=== PATIENT | female | born 1980 | race Caucasian/White ===

== ENCOUNTER 2018-07-26 21:10 | Outpatient (REF) | payer MEDICAID, SELFPAY ==
[2018-07-26 22:13] LABS: ALT 33 U/L (12-78); AST 19 U/L (15-37); Albumin 3.5 g/dL (3.4-5.0); Alkaline Phosphatase 94 U/L (46-116); Anion Gap 10.7 mmol/L (3-11); BUN 8 mg/dL (7-18); Bilirubin, Total 0.6 mg/dL (0.2-1.0); CO2 26.3 mmol/L (21.0-32.0); CREATININE 0.74 mg/dL (0.55-1.02); Calcium 8.4 mg/dL (8.5-10.1); Chloride 103 mmol/L (98-107); Cholesterol 165 mg/dL (50-200); Glucose 96 mg/dL (70-100); HDL Cholesterol 33 mg/dL (40-60); LDL CHOLESTEROL 111 mg/dL (<100); Potassium 4.1 mmol/L (3.5-5.1); Sodium 140 mmol/L (136-145); Total Protein 6.9 g/dL (6.4-8.2); Triglyceride 161 mg/dL (30-150)
[2018-07-29 12:13] LABS: Codeine Negative ng/mL (Cutoff: 25); Dihydrocodeine 465 ng/mL (Cutoff: 25); Hydrocodone 1886 ng/mL (Cutoff: 25); Hydromorphone 1117 ng/mL (Cutoff: 25); Morphine Negative ng/mL (Cutoff: 25); Naloxone Negative ng/mL (Cutoff: 25); Norhydrocodone 1927 ng/mL (Cutoff: 25); Noroxycodone Negative ng/mL (Cutoff: 25); Noroxymorphone Negative ng/mL (Cutoff: 25); Opiates Interpretation Positive.
== END 2018-07-26 21:30 ==
LOC: NCHCN 21:10
PROVIDERS: PCP Physician Assistant Medical; Visit Provider Physician Assistant Medical
DX: E78.5 Hyperlipidemia, unspecified (principal); M54.5 Low back pain
CPT/HCPCS: 80053; 80061; 80361; 83721

== ENCOUNTER 2018-10-26 14:21 | Outpatient (REF) | payer MEDICAID, SELFPAY ==
[2018-10-29 04:20] LABS: Codeine Negative ng/mL (Cutoff: 25); Dihydrocodeine 584 ng/mL (Cutoff: 25); Hydrocodone 2055 ng/mL (Cutoff: 25); Hydromorphone 2048 ng/mL (Cutoff: 25); Morphine Negative ng/mL (Cutoff: 25); Naloxone Negative ng/mL (Cutoff: 25); Norhydrocodone 4303 ng/mL (Cutoff: 25); Noroxycodone Negative ng/mL (Cutoff: 25); Noroxymorphone Negative ng/mL (Cutoff: 25); Opiates Interpretation Positive.
== END 2018-10-26 14:41 ==
LOC: NCHCN 14:21
PROVIDERS: PCP Physician Assistant Medical; Visit Provider Physician Assistant Medical
DX: F11.20 Opioid dependence, uncomplicated (principal); Z51.81 Encounter for therapeutic drug level monitoring
CPT/HCPCS: 80361

== ENCOUNTER 2019-06-10 13:08 | Emergency (ER) | payer OTHER, MEDICAID, SELFPAY ==
[2019-06-10 13:17] VITALS: BP 148/91; PULSE 81; RESP 16; TEMP 36.7; O2SAT 94
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
[2019-06-10] MEDS: Ketorolac 30 MG/ML VIAL IM (13:40)
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
--- NOTE | 2019-06-10 14:47 | DI.VRAD_ITS ---
Addendum created by Bro Martins MD on 06/10/2019 3:20:[address] of the C-spine shows mild left neural foraminal narrowing at C5-C6 and moderate left neural foraminal narrowing at C6-C7 caused by uncovertebral osteophytes. This is somewhat poorly evaluated on CT; if clinically indicated MRI may further evaluate. Initial report created on 06/10/2019 2:47:16 PM EDT EXAM: CT Thoracic Spine Without Contrast EXAM DATE/TIME: 06/10/2019 1:31 PM CLINICAL HISTORY: 39 years old, female; Other: Tingling in 1-2 digits, midline pain; Pain in thoracic spine TECHNIQUE: Imaging protocol: Computed tomography images of the thoracic spine without contrast. Coronal and sagittal reformatted images were created and reviewed. COMPARISON: No relevant prior studies available. FINDINGS: Vertebrae: No acute fracture. Normal alignment. Discs/Spinal canal/Neural foramina: No spinal stenosis. Soft tissues: Unremarkable. IMPRESSION: No acute finding EXAM: CT Lumbar Spine Without Contrast EXAM DATE/TIME: 06/10/2019 1:31 PM CLINICAL HISTORY: 39 years old, female; Other: Tingling in 1-2 digits, midline pain; Pain in thoracic spine TECHNIQUE: Imaging protocol: Computed tomography images of the lumbar spine without contrast. Coronal and sagittal reformatted images were created and reviewed. COMPARISON: No relevant prior studies available. FINDINGS: Vertebrae: No acute fracture. Normal alignment. Discs/Spinal canal/Neural foramina: No spinal stenosis. No neural foraminal narrowing. Soft tissues: Unremarkable. IMPRESSION: No acute findings. Dictated and Authenticated by: Bro Martins MD. Ordering:BETO Ribeiro MD
[2019-06-10] MEDS: Lidocaine 5% Patch 1 PATCH TP (15:13)
[2019-06-10] MEDS: Dexamethasone 4 MG TAB 12 MG PO (15:13)
[2019-06-10 15:26] VITALS: BP 148/91; PULSE 81; RESP 16; TEMP 36.7; O2SAT 94
--- NOTE | 2019-06-11 05:51 | NUR.NOTE ---
Referral faxed to [facility], Bere Reynolds, craig F/U 06/12 with phone call to office to make sure fax was received.lNursing Note:
--- NOTE | 2019-06-12 09:05 | NUR.NOTE ---
Spoke with Teresa at [facility] to be sure f/u referral was received. Refaxed referral as requested.Nursing Note:
== END 2019-06-10 15:26 | disposition home or self-care (01) ==
PROVIDERS: Emergency Provider Student in an Organized Health Care Education/Training Program; PCP Physician Assistant Medical
DX: R20.2 Paresthesia of skin (principal); S13.4XXA Sprain of ligaments of cervical spine, initial encounter; V43.51XA Car driver injured in collision with sport utility vehicle in traffic accident, initial encounter
CPT/HCPCS: 71250; 96372; 99284; L0172; 70450; 72125; 72128; 72131; J1885; J8540

== ENCOUNTER 2019-08-26 09:20 | Outpatient (CLI) | payer MEDICAID, SELFPAY ==
[2019-08-26 11:44] LABS: ALT 50 U/L (14-59); AST 20 U/L (15-37); Albumin 3.7 g/dL (3.4-5.0); Alkaline Phosphatase 88 U/L (46-116); Anion Gap 8.2 mmol/L (3-11); BUN 8 mg/dL (7-18); Bilirubin, Total 0.5 mg/dL (0.2-1.0); CO2 26.8 mmol/L (21.0-32.0); CREATININE 0.81 mg/dL (0.55-1.02); Calcium 8.8 mg/dL (8.5-10.1); Calculated LDL 93 mg/dL; Chloride 104 mmol/L (98-107); Cholesterol 151 mg/dL (50-200); Glucose 99 mg/dL (70-100); HDL Cholesterol 35 mg/dL (40-60); Potassium 4.3 mmol/L (3.5-5.1); Sodium 139 mmol/L (136-145); Triglyceride 119 mg/dL (30-150)
[2019-08-28 10:36] LABS: HIV-1/2 Ag & Ab Screen Negative (NEGAT)
[2019-08-28 10:37] LABS: Hepatitis C Ab w Rflx HCV PCR Negative (NEGAT)
[2019-08-28 13:57] LABS: Syphilis Total Ab w/Reflex Nonreactive (Nonreactive)
== END 2019-08-26 09:40 ==
PROVIDERS: PCP Physician Assistant Medical; Visit Provider Physician Assistant Medical
DX: Z00.00 Encounter for general adult medical examination without abnormal findings (principal); E78.5 Hyperlipidemia, unspecified; Z11.3 Encounter for screening for infections with a predominantly sexual mode of transmission; Z11.4 Encounter for screening for human immunodeficiency virus [HIV]; Z11.59 Encounter for screening for other viral diseases
CPT/HCPCS: 36415; 80053; 80061; 86803; 87389; 86780

== ENCOUNTER 2020-09-13 01:12 | Outpatient (CLI) | payer OTHER, SELFPAY ==
[2020-09-13 08:23] LABS: Abs Immature Grans 0.07 10^3/uL (0.0-0.06); Absolute Basophil Count 0.06 10^3/uL (0.0-0.2); Absolute Eosinophil Count 0.45 10^3/uL (0.0-0.7); Absolute Lymphocyte Count 3.88 10^3/uL (1.2-3.4); Absolute Monocyte Count 1.17 10^3/uL (0.1-0.8); Basophils % 0.4; Eosinophils % 3.2; HCT 43.7 % (36.0-46.0); HGB 14.6 g/dL (11.2-15.7); Immature Grans % 0.5; Lymphocytes % 27.9; MCHC 33.4 % (32.0-36.0); MCV 89.9 fL (80-95); MPV 8.6 fL (8.0-11.0); Monocytes % 8.4; Neutrophils % 59.6; Nucleated RBC 0 %; Platelet Count 434 10^3/uL (130-400); RBC 4.86 10^6/uL (3.93-5.22); RDW 14.1 % (11.7-14.6); RDW-SD 46.6 fL; WBC 13.91 10^3/uL (4.4-10.8)
[2020-09-13 08:28] LABS: Absolute Neutrophil Count 8.29 10^3/uL (1.2-6.7)
[2020-09-13 09:53] LABS: ALT 41 U/L (14-59); AST 18 U/L (15-37); Albumin 3.8 g/dL (3.4-5.0); Alkaline Phosphatase 78 U/L (46-116); BUN 14 mg/dL (7-18); Bilirubin, Total 0.5 mg/dL (0.2-1.0); CREATININE 0.85 mg/dL (0.55-1.02); Calcium 8.7 mg/dL (8.5-10.1); Calculated LDL 104 mg/dL (<100); Chloride 104 mmol/L (98-107); Cholesterol 164 mg/dL (<200); Glucose 107 mg/dL (74-106); HDL Cholesterol 32 mg/dL (40-60); Potassium 4.2 mmol/L (3.5-5.1); Sodium 139 mmol/L (136-145); TSH (W/Ref FT4) 2.53 uIU/mL (0.36-3.74); Triglyceride 140 mg/dL (<150)
== END 2020-09-13 01:32 ==
PROVIDERS: PCP Physician Assistant Medical; Visit Provider Physician Assistant Medical
DX: E78.5 Hyperlipidemia, unspecified (principal); I10 Essential (primary) hypertension; L65.9 Nonscarring hair loss, unspecified
CPT/HCPCS: 36415; 80053; 80061; 84443; 85025

== ENCOUNTER 2021-09-26 09:10 | Outpatient (REF) | payer OTHER, SELFPAY ==
[2021-09-26 15:34] LABS: ALT 43 U/L (14-59); AST 19 U/L (15-37); Albumin 3.8 g/dL (3.4-5.0); Alkaline Phosphatase 89 U/L (46-116); Anion Gap 9.9 mmol/L (3-11); BUN 12 mg/dL (7-18); Bilirubin, Total 0.6 mg/dL (0.2-1.0); CO2 25.1 mmol/L (21.0-32.0); CREATININE 0.8 mg/dL (0.55-1.02); Calcium 8.9 mg/dL (8.5-10.1); Calculated LDL 114 mg/dL (<100); Chloride 104 mmol/L (98-107); Cholesterol 174 mg/dL (<200); Glucose 104 mg/dL (74-106); HDL Cholesterol 33 mg/dL (40-60); Potassium 4.2 mmol/L (3.5-5.1); Sodium 139 mmol/L (136-145); Triglyceride 137 mg/dL (<150)
== END 2021-09-26 09:11 | disposition home or self-care (01) ==
LOC: NCHCN 09:10
PROVIDERS: PCP Physician Assistant Medical; Visit Provider Physician Assistant Medical
DX: E78.5 Hyperlipidemia, unspecified (principal)
CPT/HCPCS: 80053; 80061; 83036

== ENCOUNTER 2022-04-21 08:38 | Outpatient (REF) | payer OTHER, SELFPAY ==
--- NOTE | 2022-04-21 08:00 | PAPFT_PTH ---
PATIENT: Beck Harvey I LOC: [facility]#:[id number] AGE/SX: 42/F ROOM: RE04/21/[address]: Alissa Reynolds : 1980 BED: DIS: 04/21/2022 SPEC #: [id number] RECD: 04/21/22 17:26 STATUS: GERRY REVanda #: [id number] GUILLE: 04/21/22 08:[address]: Alissa Reynolds DEPT: [facility] Cytology RECD BY: Zenaida Roa Tissues: 1 - CX/ENDOCX FOR PAP SMEARS Procedures: PAP THIN PREP/UVM Screening HPV DNA PROBE Comments: [id number]
[2022-04-23 08:46] LABS: Chlamydia Result Negative (Negative); GC Result Negative (Negative)
== END 2022-04-21 08:39 | disposition home or self-care (01) ==
LOC: NCHCN 08:38
PROVIDERS: PCP Physician Assistant Medical; Visit Provider Physician Assistant Medical
DX: Z11.3 Encounter for screening for infections with a predominantly sexual mode of transmission (principal); Z12.4 Encounter for screening for malignant neoplasm of cervix; Z11.51 Encounter for screening for human papillomavirus (HPV); Z01.419 Encounter for gynecological examination (general) (routine) without abnormal findings; Z00.00 Encounter for general adult medical examination without abnormal findings
CPT/HCPCS: 87491; 87591; 88142; 87624

== ENCOUNTER → 2022-05-29 00:24 | Outpatient (CLI) | payer OTHER, SELFPAY ==
--- OUTSIDE RECORDS SUMMARY | 2022-05-29 00:26 | XMS_ITS | Clinical Summary ---
:1980 Author Organization [facility] Address [address] [place] [address] Care Team Providers Name Role Phone Nikki Sheridan NP Primary Care Provider Encounters Date Type Specialty Care Team Description 04/23/2022 Lab Requisition Clinical Laboratory Alissa Reynolds Encounter for TALON Skinner gynecological examination (ge neral) (routine) witho ut abnormal findin gs 04/21/2022 Lab Requisition Clinical Laboratory Outr Resulting Lab, Provider from Last 3 Months Social History Tobacco Use Types Packs/Day Years Used Date Never Assessed Sex Assigned at Date Recorded Not on file Plan of Treatment Health Maintenance Due Date Last Done Comments Hepatitis C Screen 1980 COVID-19 Vaccine (#1) 1987 Procedures Procedure Name Priority Date/Time Associated Diagnosis Comme nts PAP TEST Today 04/21/2022 8:00 Encounter for Results for this EDT gynecological procedure are in examination (general) the re sults (routine) without section. abnormal findings HUMAN PAPILLOMAVIRUS Today 04/21/2022 8:00 Encounter for Res ults for this (HPV) DETECTION-HIGH EDT gynecological proced ure are in RISK TYPES examination (general) the re sults (routine) without section. abnormal findings CHLAMYDIA/N. Routine 04/21/2022 8:00 Results for this GONORRHOEAE AMPLIFIED EDT proced ure are in RNA the results section. from Last 3 Months Results PAP TEST (04/21/2022 8:00 EDT) Specimens A. Cervix and/or [facility] MEDICAL Endocervix , ThinPrep CENTER Imaging System with LABORATORY Manual Evaluation SERVICES Specimen Adequacy Satisfactory for [facility] MEDICAL Evaluation - CENTER transformation zone LABORATORY component absent SERVICES General Negative for [facility] intraepithelial CENTER lesion or malignancy LABORATORY SERVICES Attestation . [facility] CENTER signed by GLADIS Bell CT(ASCP) on SERVICES 04/29/2022 at 19 22 Clinical History SEE BELOW [facility] SERVICES HPV The result for the Human Pap illomavirus (HPV) Detection-High Risk Types is Negative. No E6 or E7 mRNA is detected from HPV types 16,18,31,33,35,39,45,51,52,56,58,59,66, and 68 by integration technician mediated [facility] MEDICAL amplification.Testing was pe rformed on specimen [id number] and was resulted on 04/29/2022 1915 EDT by WALTER, LAB INSTRUMENT RESULTS IN [facility] LABORATORY SERVICES Performing Lab [facility] LAB [facility]OR[facility] SERVICES Scanned Images [facility] SERVICES Specimen Pap Test - Cervix and/or Endocervix Performing Organization Address City/State/ZIP Code Phon e Number [facility] [address] [place] [address] SERVICES CHLAMYDIA/N. GONORRHOEAE AMPLIFIED RNA (04/21/2022 8:00 EDT) Pathologist Sig nature Gonococcus Result Negative Negative [facility] SERVICES Chlamydia Result Negative Negative [facility] SERVICES Specimen Swab - Entire endocervix (body structure ) Performing Organization Address City/State/ZIP Code Phon e Number [facility] [address] [place] [address] SERVICES HUMAN PAPILLOMAVIRUS (HPV) DETECTION-HIGH RISK TYPES (04/21/2022 8:00 EDT) Human Papillomavirus NegativeComment: No Negative [facility] (HPV) Detection-High E6 or E7 mRNA is CENTER LABORATOR Y Types detected from HPV SERVICES types 16,18,31,33,35,39,45 ,51,52,56,58,59,66, and 68 by integration technician mediated amplification. Specimen Pap Test - Cervix and/or Endocervix Performing Organization Address City/State/ZIP Code Phon e Number [facility] [address] [place] [address] SERVICES from Last 3 Months Care Teams Financial Services Specialist Relationship Specialty Start Date End Date Nikki Sheridan NP PCP - General 04/02/09 [facility] [address] [place] [id number]
--- OUTSIDE RECORDS SUMMARY | 2022-05-29 00:26 | XMS_ITS | Encounter Summary ---
:1980 Author Organization [facility] Address [address] [place] [address] Care Team Providers Name Role Phone Nikki Sheridan GROUP LEADER Primary Care Provider Encounter Details Date Type Department Care Team Description 04/21/2022 Lab Requisition [facility] Outr Resulting Lab, Pathology & Laboratory Provider [facility] [address] [place], [place] [id number] Social History Tobacco Use Types Packs/Day Years Used Date Never Assessed Sex Assigned at Date Recorded Not on file documented as of this encounter Plan of Treatment Not on filedocumented as of this encounter Procedures Procedure Name Priority Date/Time Associated Comments Diagnosis CHLAMYDIA/N. Routine 04/21/2022 8:00 Results for this GONORRHOEAE AMPLIFIED EDT proced ure are in RNA the results section. documented in this encounter Results CHLAMYDIA/N. GONORRHOEAE AMPLIFIED RNA (04/21/2022 8:00 EDT) Pathologist Sig nature Gonococcus Result Negative Negative [facility] LABORAT[facility] SERVICES Chlamydia Result Negative Negative [facility] LABOR[facility] SERVICES Specimen Swab - Entire endocervix (body structure ) Performing Organization Address City/State/ZIP Code Phon e Number [facility] [address] [place] [address] SERVICES documented in this encounter Visit Diagnoses Not on filedocumented in this encounter Care Teams Dairy Nutritionist Relationship Specialty Start Date End Date Nikki Sheridan, GROUP LEADER PCP - General 04/02/09 [facility] [address] [place], [place] [id number] documented as of this encounter
--- OUTSIDE RECORDS SUMMARY | 2022-05-29 00:26 | XMS_ITS | Encounter Summary ---
:1980 Author Organization [facility] Address [address] [place] [address] Care Team Providers Name Role Phone Nikki Sheridan NP Primary Care Provider Encounter Details Date Type Department Care Team Description 04/23/2022 Lab Requisition [facility] for Pathology & Alissa Skinner PA-C gynecological Laboratory Medicine [address] [facility] examination (general) - [place], [place] (routine) without [address] [facility] [id number] abnormal findings [place], [place] [id number] Social History Tobacco Use Types Packs/Day Years Used Date Never Assessed Sex Assigned at Date Recorded Not on file documented as of this encounter Plan of Treatment Not on filedocumented as of this encounter Procedures Procedure Name Priority Date/Time Associated Diagnosis [...] re sults (routine) without section. abnormal findings documented in this encounter Results HUMAN PAPILLOMAVIRUS (HPV) DETECTION-HIGH RISK TYPES (04/21/2022 8:00 EDT) Human Papillomavirus NegativeComment: No Negative [facility] (HPV) Detection-High E6 or E7 mRNA is CENTER LABORATOR Y Types detected from HPV SERVICES types 16,18,31,33,35,39,45 ,51,52,56,58,59,66, and 68 by senior data warehouse architect mediated amplification. Specimen Pap Test - Cervix and/or Endocervix Performing Organization Address City/[facility]/ZIP Code Phon e Number [facility] [address] [place] [address] SERVICES PAP TEST (04/21/2022 8:00 EDT) Specimens A. Cervix and/or [facility] Endocervix , ThinPrep CENTER Imaging System with LABORATORY Manual Evaluation SERVICES Specimen Adequacy Satisfactory for [facility] Evaluation - CENTER transformation zone LABORATORY component absent SERVICES General Negative for [facility] intraepithelial NATALIA lesion or malignancy LABORATORY SERVICES Attestation . [facility] signed by GLADIS Bell CT(ASCP) on SERVICES 04/29/2022 at 19 22 Clinical History SEE BELOW [facility] LABORATORY SERVICES HPV The result for the Human Pap illomavirus (HPV) Detection-High Risk Types is Negative. No E6 or E7 mRNA is detected from HPV types 16,18,31,33,35,39,45,51,52,56,58,59,66, and 68 by senior data warehouse architect mediated [facility] MEDICAL amplification.Testing was pe rformed on specimen [id number] and was resulted on 04/29/2022 1915 EDT by WALTER, LAB INSTRUMENT RESULTS IN [facility] LABORATORY SERVICES Performing Lab [facility] LAB [facility] LABORATORY SERVICES Scanned Images [facility] LABORATORY SERVICES Specimen Pap Test - Cervix and/or Endocervix Performing Organization Address City/State/ZIP Code Phon e Number [facility] [address] [place] [address] SERVICES documented in this encounter Visit Diagnoses Diagnosis Encounter for gynecological examination (general) (routine) without abnormal findings documented in this encounter Care Teams Cpr Instructor Relationship Specialty Start Date End Date Nikki Sheridan NP PCP - General 04/02/09 [facility] [address] [place] [address] documented as of this encounter
--- OUTSIDE RECORDS SUMMARY | 2022-05-29 00:26 | XMS_ITS | Encounter Summary ---
:1980 Author Organization [facility] Address [address] [place] [address] Care Team Providers Name Role Phone Nikki Sheridan MANUFACTURING COORDINATOR Primary Care Provider Encounter Details Date Type Department Care Team Description 11/09/2016 Results Only [facility]- Shreya Lincoln, [facility] [phone] [address] [place] [address] (Wo rk) Social History Tobacco Use Types Packs/Day Years Used Date Never Assessed Sex Assigned at Date Recorded Not on file documented as of this encounter Plan of Treatment Not on filedocumented as of this encounter Procedures Procedure Name Priority Date/Time Associated Diagnosis Comme nts PAP TEST- RESULT Routine 11/09/2016 0:00 EST Resu lts for this ONLY procedure are i n the results section. documented in this encounter Results PAP TEST- RESULT ONLY (11/09/2016 0:00 EST) Pathology Report: CYTOPATHOLOGY REPORT [facility] Reports generated via electronic interface contain john ginal data; SERVICES however they are lacking the format of the original re port. Caution should be taken when reading/interpreting unfo rmatted reports. Name: ? JAYCOB LEAVITT I ? Accession #: ? [id number] ? : ? 1980 (Age: [age]) ??F ?Collect Date: ? 2016 ? Location: ? [facility] ? Receive Date: ? 11/10/19 17 ? Provider: SHREYA ENGLAND INTERNET CAFE MANAGER Copy to: SD GARDINER PA-C ? Final Report SPECIMEN ADEQUACY ? Satisfactory for Evaluation - transformation zone component present GENERAL CATEGORIZATION ? Negative for Intraepithelial Lesion or Malignan cy ?? Last Menstrual Period: 10/20/2016 Specimen/Source: ??Pap Test, Cervix, ThinPrep Imaging System with manual evaluation Document reviewed and electronically signed by: ? HORACE Clayton(ASCP) ? Report ??Date: 11/12/2016 12:22 HPV with Pap Test ? Date Ordered: ? 11/12/2016 ? Status: ?? Signed Out ?Date Complete: ? 11/16/2016 ? By: ??Sy stem Interface ? Date Reported: ? 11/16/2016 ? Interpretation RESULT: Negative for HPV. No E6 or E7 mRNA is detected from HPV types 16,18,31,3 3,35, 39,45,51,52,56,58,59,66, and 68 by outsole skiver media william amplification. Comments Document reviewed and electronically signed by: ? System Interface ? Report date: 11/16/2016 By the signature above, the attending physician certif ies that he/she has personally conducted a gross and/or microscopic examin ation of the described specimens and rendered or confirmed the above diagnosi s. End of Report Specimen Performing Organization Address City/State/ZIP Code Phon e Number [facility] [address] [place] [address] [place] [address] SERVICES documented in this encounter Visit Diagnoses Not on filedocumented in this encounter Care Teams Physician/Ophthalmologist Relationship Specialty Start Date End Date Nikki Sheridan NP PCP - General 04/02/09 [facility] [address] [place] [address] documented as of this encounter
--- OUTSIDE RECORDS SUMMARY | 2022-05-29 00:27 | XMS_ITS | Encounter Summary ---
:1980 [place] [address] Care Team Providers Name Role Phone Alissa Reynolds Primary Care Provider Encounter Details Date Type Department Care Team Description 10/07/2016 Hospital Encounter [facility]iology [facility] [place], Flank pain [facility] [place] [address] [place] [address] MEDICINE [phone] [place] [id number] (Wo rk) Social History Tobacco Use Types Packs/Day Years Used Date Current Every Day Smoker Cigarettes 1 15 Smokeless Tobacco: Never Used Comments: smoking 0.5ppd-1ppd- pcp presc ibed chantix- has at home when has quit date Sex Assigned at Date Recorded Not on file documented as of this encounter Medications at Time of Discharge Medication Sig Dispensed Refills Start Date End Date levalbuterol (XOPENEX) Take 1 ampule by 0 0.63 mg/3 mL nebulizer nebulization as needed. solution hydroCODone-acetaminophe Take 1 tablet by mouth 0 n (VICODIN) 5-500 mg per 3 times daily as tablet needed. triamcinolone Apply topically 2 times 0 (ARISTOCORT) 0.5 % cream daily. naproxen (NAPROSYN) 500 Take 500 mg by mouth 2 0 mg tablet times daily (with meals). documented as of this encounter Plan of Treatment Not on filedocumented as of this encounter Visit Diagnoses Diagnosis Flank pain Abdominal pain, unspecified site documented in this encounter Care Teams Production Editor Relationship Specialty Start Date End Date Alissa Reynolds PA PCP - General 12/23/12 06/18/20 [address] [place] [address] documented as of this encounter
--- OUTSIDE RECORDS SUMMARY | 2022-05-29 00:27 | XMS_ITS | Encounter Summary ---
:1980 Author Organization [facility] [place] [address] Care Team Providers Name Role Phone Nikki Sheridan APRN Primary Care Provider Reason for Referral Physical Therapy (Routine) - Closed Specialty Diagnoses / Procedures Referred By Contact Refer red To Contact Physical Therapy Diagnoses Mechanical low back pain [facility] [place] [address] [place] [address] Phone: Referral ID Status Reason Start Date Expiration Date Visits V isits Requested Authorized [id number] Closed Evaluate and 07/29/2012 01/25/2013 12 12 Treat Reason for Visit Reason Comments Low Back Pain Buttock Pain Encounter Details Date Type Department Care Team Description 07/29/2012 Office Visit [facility] Mechanic al low back [place] pain (Primary Dx) [facility] [address] [place] [facility] [address] [place] [address] [phone] Social History Tobacco Use Types Packs/Day Years Used Date Current Every Day Smoker Cigarettes 1 15 Smokeless Tobacco: Never Used Tobacco Cessation: Ready to Quit: No Comments: pcp working with pt to quit Sex Assigned at Date Recorded Not on file documented as of this encounter Last Filed Vital Signs Vital Sign Reading Time Taken Comments Blood Pressure 128/78 07/29/2012 9:40 AM EDT Pulse - - Temperature - - Respiratory Rate - - Oxygen Saturation - - Inhaled Oxygen Concentration - - Weight 78.9 kg (174 lb) 07/29/2012 9:40 AM EDT Height 170.2 cm (5' 7) 07/29/2012 9:40 AM EDT Body Mass Index 27.25 07/29/2012 9:40 AM EDT documented in this encounter Progress Notes [facility] PA - 07/29/2012 10:43 AM EDT Chief Complaint: Chief Complaint Patient presents with ??? Low Back Pain ??? Buttock Pain HPI: This patient is a 32 y.o. female that presents to the spine center for Chronic mechanical low back pain. The patient indicates that she woke up one day about 6 months ago with back pain that has not resolved. She indicates that her pain is somewhat episodic although there is always some level of pain. The pain is located along the entire lumbar spine. She does not describe any radicular symptomsat this time. In the past she did have some pain radiating into her buttocks bilaterally along with some discomfort and dysesthesias in both anterior thighs. However at this point there is no limb symptoms and there is no weakness reported. She rates her pain currently is a 5/10 with pain ranging between 0-10. Her symptoms are worse based on increased activities and does not know any alleviating factors. There is no bowel or bladder incontinence reported and there is no reported myelopathic symptoms. Her treatments have included Vicodin, NSAIDs, physical therapy which is mostly activity based, she has done prednisone taper and reportedly gabapentin. There is no prior history of cancer and no priorspine surgeries. ROS: Negative for any GI, or constitutional symptoms. Medications & Allergies: Are updated on the system. Problem List: There is no problem list on file for this patient. PSH: No prior spine surgeries. Social Hx: History Social History ??? Marital Status: Spouse Name: N/A Number of Children: N/A ??? Years of Education: N/A Occupational History ??? Not on file. Social History Main Topics ??? Smoking status: Current Everyday Smoker -- 1.0 packs/day for 15 years Types: Cigarettes ??? Smokeless tobacco: Never Used Comment: pcp working with pt to quit ??? Alcohol Use: Not on file ??? Drug Use: Not on file ??? Sexually Active: Not on file Other Topics Concern ??? Not on file Social History Narrative ??? No narrative on file Physical Exam: This patient is a fit and healthy 32-year-old female the to learn oriented x3 and has a normal affect. She stands with no scoliosis. She can place with a nonantalgic gait and is able to toe walk, heel walk and tandem walk. She has some tenderness at the L4-L5 level. She flexes her spine fully with herfingers going to her toes without pain and she extends approximately 30 degrees with some back pain at the thoracolumbar junction. Sensation is intact in all dermatonal patterns. Reflexes are 2+ and symmetrical at the knees and ankles. Motor testing was 5/5. Straight leg raise was negative. Hip range of motion was mildly limited on internal rotation causing some lateral hip discomfort. There is no clonus and negative Babinski. Distal pulses are intact. Imaging: Her MRI reveals: There is some central disk protrusion at T11-T12 which does cause a mass effect to the spinal cord but no cord signal abnormalities and does not completely compressed the cordeither. There also is a small right lateral recess disk protrusion at L1-L2 which does not impinge any nerve roots. There is indication of some degenerative disk desiccation L5-S1 without any nerve compression. I reviewed the images with the patient. Assessment: Chronic mechanical low back pain. Plan: I have discussed at length the diagnosis of mechanical low back pain, and the fact that it is often difficult to know what is the actual pain generator. I have told the patient that most back pain will resolve on it's own from a period of 3 months to 1 year, whether we treat it or not. Occasionally back pain can become chronic. These symptoms are hurtful and not harmful. I have discussed that the best treatment for low back pain is to stay active with aerobic type activities such as walking, swimming and biking. However, I have also discussed other treatment options, including: Physical therapy with a Enoch based approach, NSAIDs, muscle relaxants, steroid Dosepak, injections. I informed p atient that based on her physical exam findings and imaging I did not see anything that is surgical.I would recommend physical therapy here in the spine center. As she is still very uncomfortable and had some response to steroid Dosepak's in the past, I feel also prescribing a Medrol Dosepak that shewill take just prior to starting physical therapy may help combined treatments to improve her symptoms more rapidly. Her primary care physician otherwise can continue to manage her other medications. Hopefully she will be significantly improved after starting physical therapy. After our discussion andanswering the patients questions, we have come to an aggreement in the below stated plan: 1) I did write a prescription for Medrol Dosepak which she'll take as prescribed just before starting physical therapy. 2) I have referred the patient to physical therapy in the Spine Center, to be treated with a mechanical, Enoch based approach. 3) at this point can follow up with the patient on an as-needed basis. This dictation was performed using [employer] voice recognition dictation. documented in this encounter Plan of Treatment Scheduled Referrals Name Type Priority Associated Diagnoses Order S chedule REFERRAL TO Outpatient Referral Routine Mechanical low back O rdered: PHYSICAL THERAPY pain 07/29/2012 documented as of this encounter Visit Diagnoses Diagnosis Mechanical low back pain - Primary Lumbago documented in this encounter Care Teams Patient Sitter Relationship Specialty Start Date End Date Nikki Sheridan APRN PCP - General 07/29/12 12/22/12 documented as of this encounter
--- OUTSIDE RECORDS SUMMARY | 2022-05-29 00:27 | XMS_ITS | Clinical Summary ---
:1980 Author Organization [facility] [place] [address] Care Team Providers Name Role Phone Unknown Primary Care Provider Unavailable Allergies No known active allergies Medications Medication Sig Dispensed Refills Start Date End Date Status hydroCODone-acetamino Take 1 tablet by 0 Active phen (VICODIN) 5-500 mouth 3 times daily mg per tablet as needed. triamcinolone Apply topically 2 0 Active (ARISTOCORT) 0.5 % times daily. cream naproxen (NAPROSYN) Take 500 mg by 0 Active 500 mg tablet mouth 2 times daily (with meals). levalbuterol Take 1 ampule by 0 Active (XOPENEX) 0.63 mg/3 nebulization as mL nebulizer solution needed. CRESTOR 10 mg Tablet 0 10/28/2016 Active Active Problems Problem Noted Date Spider angioma 02/01/2017 Thoracic back pain 05/12/2013 Mechanical low back pain 07/29/2012 Social History Tobacco Use Types Packs/Day Years Used Date Current Every Day Smoker Cigarettes 1 15 Smokeless Tobacco: Never Used Tobacco Cessation: Ready to Quit: No; Co unseling Given: Yes Comments: smoking 0.5ppd-1ppd- pcp presc ibed chantix- has at home when has quit date Sex Assigned at Date Recorded Not on file Last Filed Vital Signs Vital Sign Reading Time Taken Comments Blood Pressure 110/72 06/05/2013 9:50 AM EDT Pulse 76 06/05/2013 9:50 AM EDT Temperature - - Respiratory Rate - - Oxygen Saturation - - Inhaled Oxygen Concentration - - Weight 81.6 kg (180 lb) 06/19/2013 11:23 AM EDT Height 168.9 cm (5' 6.5) 06/19/2013 11:23 AM EDT Body Mass Index 28.62 06/19/2013 11:23 AM EDT Plan of Treatment Health Maintenance Due Date Last Done Comments Covid-19 Vaccine (#1) 1987 HIV screen 2000 Hepatitis C Screening 2000 Tdap adult 2001 Tetanus vaccine 2001 HPV test 2012 PAP Smear 2012 Breast Cancer Share Decision Needed 2022 Influenza (Flu) vaccine (1 of 1 - Influenza standard 07/02/2022 series) Insurance Payer Benefit Plan / Subscriber ID Effective Dates Phone Addre ss Type Group [place] [id number] 2019-Prese [phone] [address] [place] [address] Care Teams Sand Technician Relationship Specialty Start Date End Date Unknown PCP - General 06/19/20 None
--- OUTSIDE RECORDS SUMMARY | 2022-05-29 00:27 | XMS_ITS | Encounter Summary ---
:1980 Author Organization [facility] Address [address] [place] [address] Care Team Providers Name Role Phone Nikki Sheridan PRODUCT MARKETING CONSULTANT Primary Care Provider Encounter Details Date Type Department Care Team Description 08/27/2006 Results Only [facility] - Lynda Gaming od, Shreya Torres, CHANNEL WORKER conversion [address] [place] [phone] (Wo rk) Social History Tobacco Use Types Packs/Day Years Used Date Never Assessed Sex Assigned at Date Recorded Not on file documented as of this encounter Plan of Treatment Not on filedocumented as of this encounter Procedures Procedure Name Priority Date/Time Associated Diagnosis Comme nts CYTOPATHOLOGY Routine 08/27/2006 0:00 EDT Results for this procedure are i n the results section . documented in this encounter Results CYTOPATHOLOGY (08/27/2006 0:00 EDT) Pathology Report: CYTOPATHOLOGY REPORT [facility] Reports generated via electronic interface contain john ginal data; however they are lacking the format of the original re port. Caution should be taken when reading/interpreting unfo rmatted reports. Name: ? IFTIKHAR OCHOA I ? Accession #: ? [id number] : ? 1980 (Age: 26) ??F ?Collect Date: ? 08/02 Location: ? [facility] ? Receive Date : ? 08/31/2006 Provider: ?SHREYA ENGLAND CHANNEL WORKER Copy to: ? Specimen/Source: ? ThinPrep Pap Test, Cervix/Endocervix, processed on [employer] ThinPrep Imaging System, with manual evaluation Last Menstrual Period: ? 07/22/06 Hormonal/Contraceptive Status: ? Oral contraceptives Previous Gynecologic Pathology: ? GISEL I: 03/06 Treatment History: ? Colposcopy Other: ? HPVA - HPV testing requested if ASC-US on the current ThinPrep Pap test. ? SPECIMEN ADEQUACY ? Satisfactory for Evaluation - transformation zone component present GENERAL CATEGORIZATION ? Negative for Intraepithelial Lesion or Malignan cy ? Document reviewed and electronically signed by: ? HORACE Hoover(ASCP) ? Report Date: ??09/06/2006 16:17 End of Report Specimen Performing Organization Address City/State/ZIP Code Phon e Number [facility] [address] [place] [address] SERVICES [facility] [address] [place] [address] documented in this encounter Visit Diagnoses Not on filedocumented in this encounter Care Teams Trademark Attorney Relationship Specialty Start Date End Date Nikki Sheridan NP PCP - General 04/02/09 [facility] [address] [place], [place] [id number] documented as of this encounter
--- OUTSIDE RECORDS SUMMARY | 2022-05-29 00:27 | XMS_ITS | Encounter Summary ---
:1980 Author Organization [facility] Address [address] [place] [address] Care Team Providers Name Role Phone Nikki Norris MUSIC PROFESSIONALS Primary Care Provider Encounter Details Date Type Department Care Team Description 11/27/2013 Results Only [facility] Jose Turner, EMT DISPATCHER Laboratory Services - [address] [address] [place], [place] [id number] [phone] Social History Tobacco Use Types Packs/Day Years Used Date Never Assessed Sex Assigned at Date Recorded Not on file documented as of this encounter Plan of Treatment Not on filedocumented as of this encounter Procedures Procedure Name Priority Date/Time Associated Diagnosis Comme nts PAP TEST- RESULT Routine 11/27/2013 0:00 EST Resu lts for this ONLY procedure are i n the results section. documented in this encounter Results PAP TEST- RESULT ONLY (11/27/2013 0:00 EST) Pathology Report: CYTOPATHOLOGY REPORT [facility] Reports generated via electronic interface contain john ginal data; however they are lacking the format of the original re port. Caution should be taken when reading/interpreting unfo rmatted reports. Name: ? JAYCOB LEAVITT I ? Accession #: ? [id number] ? : ? 1980 (Age: 33) ??F ?Collect Da te: ? 11/27/2013 ? Location: ? [facility] ? Receive Date: ? 014 ? Provider: ANOTLIN TURNER [facility] Copy to: NIKKI NORRIS [employer] ? Final Report SPECIMEN ADEQUACY ? Satisfactory for Evaluation - transformation zone component present GENERAL CATEGORIZATION ? Negative for Intraepithelial Lesion or Malignan cy ?? Last Menstrual Period: 11/11/13 Specimen/Source: ??Pap Test, Cervix/Endocervix, ThinPr ep Imaging System with manual evaluation Document reviewed and electronically signed by: ? Sandra Bell, CT(ASCP) ? Report ??Date: 11/30/2013 11:48 HPV with Pap Test ? Date Ordered: ? 11/30/2013 ? Status: ?? Signed Out ?Date Complete: ? 12/04/2013 ? By: ??S ystem Interface ? Date Reported: ? 12/04/2013 ? Interpretation RESULT: Negative for HPV. No E6 or E7 mRNA is detected from HPV types 16,18,31,3 3,35, 39,45,51,52,56,58,59,66, and 68 by websphere message broker developer media william amplification. Comments Document reviewed and electronically signed by: ? System Interface ? Report date: 12/04/2013 By the signature above, the attending physician certif ies that he/she has personally conducted a gross and/or microscopic examin ation of the described specimens and rendered or confirmed the above diagnosi s. End of Report Specimen Performing Organization Address City/State/ZIP Code Phon e Number [facility] [address] [place] [address] SERVICES [facility] [address] [place] [address] documented in this encounter Visit Diagnoses Not on filedocumented in this encounter Care Teams Life Skills Coordinator Relationship Specialty Start Date End Date Nikki Norris, VINICIO PCP - General 04/02/09 [facility] [address] [place], [place] [address] documented as of this encounter
--- OUTSIDE RECORDS SUMMARY | 2022-05-29 00:27 | XMS_ITS | Encounter Summary ---
:1980 Author Organization [facility] [place] [address] Care Team Providers Name Role Phone Nikki Sheridan APRN Primary Care Provider Reason for Visit Reason Comments Back Pain Encounter Details Date Type Department Care Team Description 10/10/2012 Office Visit [facility], PT [facility] Mechanical low back [place] Nikki Sheridan APRN [address] [place], [place] [address] pain (Primary Dx) [facility] Juanis Irving MD [address] [place], [place] [address] [place] [address] Social History Tobacco Use Types Packs/Day Years Used Date Current Every Day Smoker Cigarettes 1 15 Smokeless Tobacco: Never Used Comments: pcp working with pt to quit Sex Assigned at Date Recorded Not on file documented as of this encounter Progress Notes [facility] Almendarez, PT - 10/10/2012 12:57 PM EST Sp[facility] Center Physical Therapy Note Referring provider: Saleem ANDERS Diagnosis: mechanical low back pain Date of onset: April 2012 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 Hernandez reports since her last appointment here in the Spine Center she had a tuballigation and has also done a lot of coughing related to bronchitis. The pain has as a result increased in intensity which has made it difficult for her to function. She has continued to be as active aspossible and is in fact walking on hard treadmill 1 mile at 3.5 mph on a 0% incline. Ms. Hernandez currently complains of low back pain extending from T. 11 to S1 right greater than left. There is intermittent numbness and tingling in the right buttocks and the lateral aspect of the right thigh and no weakness. The pain is rated 2/10 at its least and 10/10 at its worst. Symptoms worsen with bending, pr olonged sitting, standing, walking, lifting, and driving. Symptoms ease when she changes position and activity frequently or takes her medication. Sleep continues to be disturbed. Objective: Ms. Hernandez returns today for a scheduled follow up appointment. She moves about the exam room without difficulty and appears comfortable while seated. Sitting posture is poor and standing posture is good. Active range of motion of the lumbar spine is limited to 70?? flexion and 25?? extension. Midline extension and extension combined with right or left sidebending worsens the pain. Gait is unremarkable. She is able to heel/toe walk and squat fully. Abdominal and trunk extensor strength is 3/5. Slouched sitting lessens the pain while sitting with a fully formed lumbar lordosis worsens the pain. Repeated movement testing of the lumbar spine once again revealed a directional preference toward flexion. Treatment Received: Discussed the natural history of mechanical low back pain and the rational for exercise based treatment. Patient Education/ Home Exercise Program: Reviewed and modified Ms. Hernandez 's home exercise program. The home exercise program now includes extension in lying, superman, alternate arm and leg lift inprone, plank, phase 1 curl ups, phase 1 diagonal curl ups, bridging, pelvic tilt, and flexion in lying once daily. She was encouraged to continue to use her flexion-based self-care strategies as neededthroughout the day to relieve the pain. Assessment: Ms. Renees pain intensity unfortunately has worsened which is likely related to her coughing. Now that her bronchitis is improving I expect the intensity of her pain to lessen. She is ready to progress the home exercise program. Goals: Able to perform the home exercise program independently. Able to sleep through the night. 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 Able to stand and walk without discomfort. Plan: Follow up in one week to reassess and progress the home exercise program. Ms. Hernandez was encouraged to call with any questions or concerns regarding todays visit or the home exercise program. Length of visit: A total of 25 minutes was spent re-assessing, treating, and instructing Beck Hernandez in a home exercise program. documented in this encounter Plan of Treatment Not on filedocumented as of this encounter Visit Diagnoses Diagnosis Mechanical low back pain - Primary Lumbago documented in this encounter Care Teams Dry Wall Plasterer Relationship Specialty Start Date End Date Nikki Sheridan APRN PCP - General 07/29/12 12/22/12 documented as of this encounter
--- OUTSIDE RECORDS SUMMARY | 2022-05-29 00:27 | XMS_ITS | Encounter Summary ---
:1980 Author Organization [facility] [place] [address] Care Team Providers Name Role Phone Alissa Reynolds Primary Care Provider Reason for Visit Reason Comments Skin Check Encounter Details Date Type Department Care Team Description 09/09/2015 Office Visit Dermatology at [facility] Willy Reagan MD [place]; [address] [place] [address] Spider angi[place] [address] [place] [address] [phone] (Wo rk) Social History Tobacco Use Types Packs/Day Years Used Date Current Every Day Smoker Cigarettes 1 15 Smokeless Tobacco: Never Used Comments: smoking 0.5ppd-1ppd- pcp presc ibed chantix- has at home when has quit date Sex Assigned at Date Recorded Not on file documented as of this encounter Patient Instructions Patient InstructionsThi Orr LPN - 09/09/2015 3:21 PM EST Images from the original note were not included. [facility] Skin Lesions: After Your Visit Your Care Instructions A skin lesion is a general term used for the different types of bumps, spots, moles or other growthsthat may appear on your skin. Most skin lesions are harmless, but sometimes they can be a sign of skin cancer or other health problems. Depending on what type of lesion you have, your doctor may cut out all or a small area of the skin tissue and send it to a lab to be looked at under a microscope. This is called a biopsy. A biopsy may be done to figure out what the lesion is or to make sure it is not skin cancer. Follow-up care is a vaughn part of your treatment and safety. Be sure to make and go to all appointments, and call your doctor if you are having problems. It's also a good idea to know your test results and keep a list of the medicines you take. How can you care for yourself at home? ?? If your doctor removed or biopsied a skin lesion, keep the wound bandaged and dry for the first day. ?? After the first day, clean the wound with soap and water 2 times a day unless your doctor gives you different instructions. Don't use hydrogen peroxide or alcohol, which can slow healing. ?? You may cover the wound with a thin layer of petroleum jelly, such as Vaseline, and a nonstick bandage. ?? If you have stitches, you may get other instructions. You will have to return to have the stitches removed. ?? If a scab forms, do not pull it off. Let it fall off on its own. Wounds heal faster if no scab forms. Washing the area every day and using the ointment will help keep a scab from forming. ?? If the wound bleeds, put direct pressure on it with a clean cloth until the bleeding stops. ?? Take an akad-ewo-tobjpjr pain medicine, such as acetaminophen (Tylenol), ibuprofen (Advil, Motrin), or naproxen (Aleve). Read and follow all instructions on the label. ?? Do not take two or more pain medicines at the same time unless the doctor told you to. Many pain medicines have acetaminophen, which is Tylenol. Too much acetaminophen (Tylenol) can be harmful. ?? If you had a growth frozen off with liquid nitrogen, you may get a blister. Do not break it. Let it dry up on its own. It is common for the blister to fill with blood. You do not need to do anything about this, but if it becomes too painful, call your doctor. When should you call for help? Call your doctor now or seek immediate medical care if: ?? You have signs of infection, such as: ?? Increased pain, swelling, warmth, or redness. ?? Red streaks leading from the wound. ?? Pus draining from the wound. ?? A fever. ?? The wound is bleeding a lot, and direct pressure does not stop it. Watch closely for changes in your health, and be sure to contact your doctor if: ?? You do not get better after 2 weeks of home care. Where can you learn more? Visit our health information library at http://[employer] You can also view health information on [employer], your personal patient account. Log in or sign up today. Enter E372 in the search box to learn more about Skin Lesions: After Your Visit. ?? [id number] [employer]. Care instructions adapted under license by [facility]. This care instruction is for use with your licensed healthcare professional. If you have questionsabout a medical condition or this instruction, always ask your healthcare professional. [employer] disclaims any warranty or liability for your use of this information. Content Version: 10.4.452176; Current as of: January 10, 2014 documented in this encounter Progress Notes Willy Robison MD - 09/09/2015 3:42 PM EST Problem: Skin lesion of concern. Beck follows up after last seeing me in 2008 at which time I excised an atypical nevus from her left posterior shoulder. It had been biopsied by Dr. Irving and the margins were not clear. Physical examination today reveals a well-healed scar with some spread at the scar site, but overall good healing. The pathology at the time was read as margins being clear with no residual atypical melanocytic proliferation. Today I do see a solar lentigo at the superior end of this, which has a reddish-brown color but overall appears to be benign. She has a spider angioma on the right mid jawline. She has numerous small spider angiomas and telangiectasias of the upper presternal chest from excessive sun exposure. Careful examination of the head and neck, chest, back, hands, arms, forearms is otherwise benign. Assessment and Plan: 1. Spider angioma, right mid lateral cheek. a. The site was anesthetized and lightly electrodesiccated with a Birtcher hyfrecator setting of 1.5 rojas using a blunt-tipped needle. 2. Hypertrophic scar at site of atypical nevus excision. a. Patient reassured about lack of recurrent atypical nevus, but rather this represents a benign solar lentigo. b. Reassured about remainder of benign skin examination. c. I encouraged ongoing sun avoidance precautions, which the patient is trying to follow. d. Return to clinic here p.r.n. for new lesions/concerns. COPY: Alissa Reynolds P.A.-C. documented in this encounter Miscellaneous Notes Addendum Note - Willy Robison MD - 09/09/2015 3:47 PM EST Addended by: WILLY ROBISON on: 09/09/2015 03:47 PM Modules accepted: Level of Service documented in this encounter Plan of Treatment Not on filedocumented as of this encounter Visit Diagnoses Diagnosis Nevus Benign neoplasm of skin, site unspecifie d Spider angioma Nevus, non-neoplastic documented in this encounter Care Teams Science Editor Relationship Specialty Start Date End Date Alissa Reynolds PA PCP - General 12/23/12 06/18/20 [address] [place] [address] documented as of this encounter
--- OUTSIDE RECORDS SUMMARY | 2022-05-29 00:27 | XMS_ITS | Encounter Summary ---
:1980 Author Organization [facility] Address [address] [place] [address] Care Team Providers Name Role Phone Nikki Sheridan IMPACT HAMMER OPERATOR Primary Care Provider Encounter Details Date Type Department Care Team Description 09/28/2008 Before [facility] - Shreya Turner, Converted Visit Maple conversion BROKE WORKER (Maple) [address] [facility] [address] [place], [place] [id number] [place] [phone] (Wo rk) Social History Tobacco Use Types Packs/Day Years Used Date Never Assessed Sex Assigned at Date Recorded Not on file documented as of this encounter Plan of Treatment Not on filedocumented as of this encounter Procedures Procedure Name Priority Date/Time Associated Diagnosis Comme nts CYTOPATHOLOGY Routine 09/28/2008 0:00 EST Results for this procedure are i n the results section . documented in this encounter Results CYTOPATHOLOGY (09/28/2008 0:00 EST) Pathology Report: CYTOPATHOLOGY REPORT ? [facility] ? LAB Reports generated via electr onic interface contain original data; ? however they are lacking the format of the original report. ? Caution should be taken when reading/interpreting unformatted reports. ? Name: ? DON ANDRESBIMAL KANU Naima ? Accession #: ? [id number] ? : ? 1980 (Age: 28) ??F ?Collect Date: ? 09/28/2008 ? Location: ? [facility] ? Receive Date: ? 10/02/2008 ? Provider: ?SHREYA JEWELL BROKE WORKER ? Copy to: ? Specimen/Source: ? Pap Test, Cervix/Endocervix, ThinPrep Imaging System ? with manual evaluation ? Last Menstrual Period: ? Hormonal/Contraceptive Statu s: ? Intrauterine device: Mirena ? Previous Gynecologic Patholo gy: ? GISEL I: 5/06 ? Other: ? HPVA - HPV testing requested if ASC-US on the current ThinPrep Pap test. ? SPECIMEN ADEQUACY ? Satisfactory for Eval uation ? - transformation zone compon ent present ? GENERAL CATEGORIZATION ? Negative for Intraepi thelial Lesion or Malignancy ? Document reviewed and electr onically signed by: ? Nikki Mullen, SCT( ASCP) ? Report Date: ??12/03/ 2008 13:34 ? End of Report ? Specimen Performing Organization Address City/State/ZIP Code Phon e Number [facility] [address] [place] [address] SERVICES [facility] [address] [place] [address] documented in this encounter Visit Diagnoses Not on filedocumented in this encounter Care Teams Inspector Balance Wheel Motion Relationship Specialty Start Date End Date Nikki Sheridan, VINICIO PCP - General 04/02/09 [facility] [address] [place] [address] documented as of this encounter
--- OUTSIDE RECORDS SUMMARY | 2022-05-29 00:27 | XMS_ITS | Encounter Summary ---
:1980 Author Organization [facility] [place] [address] Care Team Providers Name Role Phone Alissa Reynolds Primary Care Provider Reason for Visit Reason Comments Low Back Pain has been having several flar e ups'- pcp wanted her seen Encounter Details Date Type Department Care Team Description 05/12/2013 [facility] (Primary Dx); Gloria ANDERS Mechanical low back pain [facility] [address] [place], [place] [facility] [id number] [place] [address] [phone] Social History Tobacco Use Types Packs/Day Years [...] Sign Reading Time Taken Comments Blood Pressure 120/80 05/12/2013 2:23 PM EDT Pulse - - Temperature - - Respiratory Rate - - Oxygen Saturation - - Inhaled Oxygen Concentration - - Weight 81.6 kg (180 lb) 05/12/2013 2:23 PM EDT Height 170.2 cm (5' 7) 05/12/2013 2:23 PM EDT Body Mass Index 28.19 05/12/2013 2:23 PM EDT documented in this encounter Patient Instructions Patient InstructionsBuCarissa valdez, CHAVEZ - 05/12/2013 2:23 PM EDT Stopping Smoking: After Your Visit Your Care Instructions Cigarette smokers crave the nicotine in cigarettes. Giving it up is much harder than simply changinga habit. Your body has to stop craving the nicotine. It is hard to quit, but you can do it. There are many tools that people use to quit smoking. You may find that combining tools works best for you. There are several steps to quitting. First you get ready to quit. Then you get support to help you. After that, you learn new skills and behaviors to become a nonsmoker. For many people, a necessary step is getting and using medicine. Your doctor will help you set up the plan that best meets your needs. You may want to attend a smoking cessation program to help you quit smoking. When you choose a program, look for one that has proven success. Ask your doctor for ideas. You will greatly increase your chances of success if you take medicine as well as get counseling or join a cessation program. Some of the changes you feel when you first quit tobacco are uncomfortable. Your body will miss the nicotine at first, and you may feel short-tempered and grumpy. You may have trouble sleeping or concentrating. Medicine can help you deal with these symptoms. You may struggle with changing your smokinghabits and rituals. The last step is the tricky one: Be prepared for the smoking urge to continue for a time. This is a lot to deal with, but keep at it. You will feel better. Follow-up care is a vaughn part of your treatment and safety. Be sure to make and go to all appointments, and call your doctor if you are having problems. It???s also a good idea to know your test resultsand keep a list of the medicines you take. How can you care for yourself at home? Ask your family, friends, and coworkers for support. You have a better chance of quitting if you have help and support. Join a support group, such as Nicotine Anonymous, for people who are trying to quit smoking. Consider signing up for a smoking cessation program, such as the [employer]'s Freedomfrom Smoking program. Set a quit date. Pick your date carefully so that it is not right in the middle of a big deadline orstressful time. Once you quit, do not even take a puff. Get rid of all ashtrays and lighters after your last cigarette. Clean your house and your clothes so that they do not smell of smoke. Learn how to be a nonsmoker. Think about ways you can avoid those things that make you reach for a cigarette. Avoid situations that put you at greatest risk for smoking. For some people, it is hard to have a drink with friends without smoking. For others, they might skip a coffee break with coworkers who smoke. Change your daily routine. Take a different route to work or eat a meal in a different place. Cut down on stress. Calm yourself or release tension by doing an activity you enjoy, such as readinga book, taking a hot bath, or gardening. Talk to your doctor or pharmacist about nicotine replacement therapy, which replaces the nicotine inyour body. You still get nicotine but you do not use tobacco. Nicotine replacement products help youslowly reduce the amount of nicotine you need. These products come in several forms, many of them available elst-[id number]-[id number]: Nicotine patches Nicotine gum and lozenges Nicotine inhaler Ask your doctor about bupropion (Wellbutrin) or varenicline (Chantix), which are prescription medicines. They do not contain nicotine. They help you by reducing withdrawal symptoms, such as stress and anxiety. Some people find hypnosis, acupuncture, and massage helpful for ending the smoking habit. Eat a healthy diet and get regular exercise. Having healthy habits will help your body move past itscraving for nicotine. Be prepared to keep trying. Most people are not successful the first few times they try to quit. Do not get mad at yourself if you smoke again. Make a list of things you learned and think about when you want to try again, such as next week, next month, or next year. Visit our health information library at [email or web address]. You can also view health information on [employer], your personal patient account. Log in or sign up today. Enter Y522 in the search box to learn more about Stopping Smoking: After Your Visit. ?? [id number] [employer]. Care instructions adapted under license by [facility]. This care instruction is for use with your licensed healthcare professional. If you have questionsabout a medical condition or this instruction, always ask your healthcare professional. [employer] disclaims any warranty or liability for your use of this information. Content Version: 9.1.135807; Last Revised: May 20, 2011 documented in this encounter Progress Notes Saleem Chanel PA - 05/12/2013 3:23 PM EDT Chief Complaint: Chief Complaint Patient presents with ??? Low Back Pain has been having several flare ups'- pcp wanted her seen HPI: This patient is a 33 y.o. female that presents to the spine center for A followup visit on chronic low back pain symptoms with a recent exacerbation and some pain now in the thoracic spine. When Ipreviously saw the patient she had some degenerative changes to the upper lumbar and lower thoracic spine. My feeling is her pain was more for mechanical pain and she should respond well with some timeand physical therapy. Her symptoms have improved to some extent initially with therapy and some of the strategies, but recently on April 07, she had a twisting injury that led to some increased pain specifically in her thoracic spine. She locates the pain around the level of her bra strap and she doesnot describe any radiation of pain around to the chest or abdomen although she has some occasional rib discomfort. She continues to have her low back pain and right buttock pain as well. She does feel her pain has progressively worsened since the onset. She is looking to get an MRI of her back performed again at about the 1 year time frame from her previous MRI, but at this time she is looking for a work note for some time off periodically over the next couple of months. 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 She does not report any bowel or bladder incontinence or myelopathic symptoms.. ROS: Negative for any GI, or constitutional symptoms. Medications & Allergies: Are updated on the system. Problem List: Patient Active Problem List Diagnoses Code ??? Mechanical low back pain 724.2 ??? Thoracic back pain 724.1 PMH: No past medical history on file. PSH: No past surgical history on file. Social Hx: History Social History ??? Marital Status: Spouse Name: N/A Number of Children: N/A ??? Years of Education: N/A Occupational History ??? Not on file. Social History Main Topics ??? Smoking status: Current Everyday Smoker -- 1.0 packs/day for 15 years Types: Cigarettes ??? Smokeless tobacco: Never Used Comment: smoking 0.5ppd-1ppd- pcp prescibed chantix- has at home when has quit date ??? Alcohol Use: Not on file ??? Drug Use: Not on file ??? Sexually Active: Not on file Other Topics Concern ??? Not on file Social History Narrative ??? No narrative on file Physical Exam: This patient is a relatively healthy appearing 33-year-old female who is alert and oriented x3. She stands without any scoliosis. She ambulates with a mild antalgic gait on the right leg was able to toe walk, heel walk and tandem walk. She has some tenderness from about the T6 level down to the sacrumwith some mild sparing at the T3-T4 level. She also has tenderness along the paraspinal muscles of the thoracic and lumbar spine. She flexes her spine with her fingers going to the shins causing increased back pain, and extend to about 20 degrees with back pain. Neurologically her sensation, reflexes and motor testing were intact in both lower extremity, and also in the chest and abdomen. Straight leg raise and crossed straight leg raise are both negative. Hip range of motion was full but on the right did cause some lateral hip discomfort. There is no clonus and a negative Babinski. Distal pulses are intact. Imaging: Her previous MRI did demonstrate some degenerative findings of T12-L1 disc and also if L2-L3, but no ilda nerve compression was identified. Assessment: Chronic mechanical low back pain with a recent exacerbation and causing some thoracic pain. Plan: I have reviewed with the patient that I am not certain quickly we will be able to identify theunderlying cause for her symptoms, but I don't think there is a problem with updating her images at this time. I would consider a thoracic and lumbar MRI based on some of her thoracic pain complaints, and on the fact that there was a disc protrusion at the T12-L1 level previously. I have reviewed the potential treatment options for her symptoms that might include: Continued physical therapy, NSAIDs, injections. She still would like to avoid any injection treatment. We did discuss about NSAIDs and she found better benefit with ibuprofen then with naproxen which she is currently taking. I suggested the possibility of trying meloxicam, which as a once a day medication may be more tolerated and provide better benefit. I am willing to do further work note to keep her out of work on the days she suggested. Please see my work note that was dated today for the exact time off recommendations. After our discussion and answering the patients questions, we have come to an aggreement in the below stated plan: 1) I did write a prescription for meloxicam 15 mg which she can use once a day and prescribed 30 tablets with one refill. 2) I have ordered an MRI of the thoracic and lumbar spine and will see the patient back after the images are complete, however she Would like this scheduled in either June or July. I did not seeany shin to getting the images completed. I also ordered flexion and extension x-rays of the lumbar s pine. This dictation was performed using markedup voice recognition dictation. documented in this encounter Plan of Treatment Not on filedocumented as of this encounter Results MRI lumbar spine without contrast (06/19/2013 9:04 AM EDT) Anatomical Region Laterality Modality L-spine Magnetic Resonance Specimen (Source) Anatomical Collection Method Collection Time Re ceived Time Location / / Volume Laterality 06/19/2013 9:04 AM EDT Narrative 06/19/2013 9:30 AM EDT Examination MR Thoracic Spine [facility] Clinical History chronic thoracic back pain ?? recent exacerbation not improving R/O spondylosis/herniated nucleus pulpos us Comparison MR 06/29/2012. Technique MRI of the thoracic and MRI of the lumba r spine performed without the use of intravenous contrast. Findings Thoracic spine: The overall alignment of the thoracic spine is normal. ??There is no aggressive appearing marrow lesion . ??Thoracic cord signal is normal throughout. ??The paraspinous soft tissu es appear normal. A left paracentral disc extrusion is pre sent at the T11-T12 level. ??This contacts and distorts the thoracic cord without abnormal cord signal. ??There is no other disc herniation identified. ??T here is no neural foraminal narrowing at any level. ?? Lumbar spine: ??Overall alignment of the lumbar spine is normal. ??There is no aggressive marrow lesion. ??The conus is normal in appearance, and terminates at the L1 level. ??A large hypo intense str ucture present in the gallbladder likely represents a stone. ??Visualized retrope ritoneum is otherwise unremarkable. Findings at specific levels: L1-L2: ??A small right foraminal disc ex trusion is present without significant central canal or neural foraminal narrow ing. L2-L3: ??No central canal, or neural for aminal narrowing. L3-L4: ??No central canal, or neural for aminal narrowing. ?? L4-L5: Bilateral facet arthropathy is pr esent without central canal or neural foraminal narrowing. L5-S1: ??A central and left paracentral disc extrusion with caudal migration of disc material is present. ??Disc materia l is immediately adjacent to the traversing left S1 root, but does not ap pear to significantly distort the root. Impression ? 1. T11-T12 disc extrusion, simila r in appearance to the prior MRI. ? 2. Disc herniations at L1-L2 and L5-S1. ??The herniation at L1-L2 is similar to the previous study. ??The ext rusion at L5-S1 has increased compared to the previous exam. Procedure Note Peter Wayne MD - 06/19/2013Format ting of this note might be different from the original. Examination MR Thoracic Spine [facility] Clinical History chronic thoracic back pain recent exacerbation not improving R/O spondylosis/herniated nucleus pulpos us Comparison MR 06/29/2012. Technique MRI of the thoracic and MRI of the lumba r spine performed without the use of intravenous contrast. Findings Thoracic spine: The overall alignment of the thoracic spine is normal. There is no aggressive appearing marrow lesion . Thoracic cord signal is normal throughout. The paraspinous soft tissues appear normal. A left paracentral disc extrusion is pre sent at the T11-T12 level. This contacts and distorts the thoracic cord without abnormal cord signal. There is no other disc herniation identified. The re is no neural foraminal narrowing at any level. Lumbar spine: Overall alignment of the l umbar spine is normal. There is no aggressive marrow lesion. The conus is n ormal in appearance, and terminates at the L1 level. A large hypo intense struc ture present in the gallbladder likely represents a stone. Visualized retroperi toneum is otherwise unremarkable. Findings at specific levels: L1-L2: A small right foraminal disc extr usion is present without significant central canal or neural foraminal narrow ing. L2-L3: No central canal, or neural alejandra inal narrowing. L3-L4: No central canal, or neural alejandra inal narrowing. L4-L5: Bilateral facet arthropathy is pr esent without central canal or neural foraminal narrowing. L5-S1: A central and left paracentral di sc extrusion with caudal migration of disc material is present. Disc material is immediately adjacent to the traversing left S1 root, but does not ap pear to significantly distort the root. Impression 1. T11-T12 disc extrusion, similar in a ppearance to the prior MRI. 2. Disc herniations at L1-L2 and L5-S1. The herniation at L1-L2 is similar to the previous study. The extru genaro at L5-S1 has increased compared to the previous exam. Juan Parkinson MD IMG MRI ORDERABLES MRI thoracic spine without contrast (06/19/2013 8:45 AM EDT) Anatomical Region Laterality Modality T-spine Magnetic Resonance Specimen (Source) Anatomical Collection Method Collection Time Re ceived Time Location / / Volume Laterality 06/19/2013 8:45 AM EDT Narrative 06/19/2013 9:30 AM EDT Examination MR Thoracic Spine [facility] Clinical History chronic thoracic back pain ?? recent exacerbation not improving R/O spondylosis/herniated nucleus pulpos us Comparison MR 06/29/2012. Technique MRI of the thoracic and MRI of the lumba r spine performed without the use of intravenous contrast. Findings Thoracic spine: The overall alignment of the thoracic spine is normal. ??There is no aggressive appearing marrow lesion . ??Thoracic cord signal is normal throughout. ??The paraspinous soft tissu es appear normal. A left paracentral disc extrusion is pre sent at the T11-T12 level. ??This contacts and distorts the thoracic cord without abnormal cord signal. ??There is no other disc herniation identified. ??T here is no neural foraminal narrowing at any level. ?? Lumbar spine: ??Overall alignment of the lumbar spine is normal. ??There is no aggressive marrow lesion. ??The conus is normal in appearance, and terminates at the L1 level. ??A large hypo intense str ucture present in the gallbladder likely represents a stone. ??Visualized retrope ritoneum is otherwise unremarkable. Findings at specific levels: L1-L2: ??A small right foraminal disc ex trusion is present without significant central canal or neural foraminal narrow ing. L2-L3: ??No central canal, or neural for aminal narrowing. L3-L4: ??No central canal, or neural for aminal narrowing. ?? L4-L5: Bilateral facet arthropathy is pr esent without central canal or neural foraminal narrowing. L5-S1: ??A central and left paracentral disc extrusion with caudal migration of disc material is present. ??Disc materia l is immediately adjacent to the traversing left S1 root, but does not ap pear to significantly distort the root. Impression ? 1. T11-T12 disc extrusion, simila r in appearance to the prior MRI. ? 2. Disc herniations at L1-L2 and L5-S1. ??The herniation at L1-L2 is similar to the previous study. ??The ext rusion at L5-S1 has increased compared to the previous exam. Procedure Note Peter Wayne MD - 06/19/2013Format ting of this note might be different from the original. Examination MR Thoracic Spine [facility] Clinical History chronic thoracic back pain recent exacerbation not improving R/O spondylosis/herniated nucleus pulpos us Comparison MR 06/29/2012. Technique MRI of the thoracic and MRI of the lumba r spine performed without the use of intravenous contrast. Findings Thoracic spine: The overall alignment of the thoracic spine is normal. There is no aggressive appearing marrow lesion . Thoracic cord signal is normal throughout. The paraspinous soft tissues appear normal. A left paracentral disc extrusion is pre sent at the T11-T12 level. This contacts and distorts the thoracic cord without abnormal cord signal. There is no other disc herniation identified. The re is no neural foraminal narrowing at any level. Lumbar spine: Overall alignment of the l umbar spine is normal. There is no aggressive marrow lesion. The conus is n ormal in appearance, and terminates at the L1 level. A large hypo intense struc ture present in the gallbladder likely represents a stone. Visualized retroperi toneum is otherwise unremarkable. Findings at specific levels: L1-L2: A small right foraminal disc extr usion is present without significant central canal or neural foraminal narrow ing. L2-L3: No central canal, or neural alejandra inal narrowing. L3-L4: No central canal, or neural alejandra inal narrowing. L4-L5: Bilateral facet arthropathy is pr esent without central canal or neural foraminal narrowing. L5-S1: A central and left paracentral di sc extrusion with caudal migration of disc material is present. Disc material is immediately adjacent to the traversing left S1 root, but does not ap pear to significantly distort the root. Impression 1. T11-T12 disc extrusion, similar in a ppearance to the prior MRI. 2. Disc herniations at L1-L2 and L5-S1. The herniation at L1-L2 is similar to the previous study. The extru genaro at L5-S1 has increased compared to the previous exam. Juan Parkinson MD [facility] MRI ORDERABLES documented in this encounter Visit Diagnoses Diagnosis Thoracic back pain - Primary Pain in thoracic spine Mechanical low back pain Lumbago Mechanical low back pain Lumbago Thoracic back pain Pain in thoracic spine Mechanical low back pain Lumbago Thoracic back pain Pain in thoracic spine documented in this encounter Care Teams Byproducts Supervisor Relationship Specialty Start Date End Date Alissa Reynolds PA PCP - General 12/23/12 06/18/20 [address] [place] [address] documented as of this encounter
--- OUTSIDE RECORDS SUMMARY | 2022-05-29 00:27 | XMS_ITS | Encounter Summary ---
:1980 Author Organization [facility] Address [address] [place] [id number] Care Team Providers Name Role Phone FatimahNikki Danilo PHOTO JOURNALIST Primary Care Provider Encounter Details Date Type Department Care Team Description 10/02/2010 Results Only [facility] Jazmin Shannon MD Laboratory Services - [address] [place] [address] [address] [place] [address] Social History Tobacco Use Types Packs/Day Years Used Date Never Assessed Sex Assigned at Date Recorded Not on file documented as of this encounter Plan of Treatment Not on filedocumented as of this encounter Procedures Procedure Name Priority Date/Time Associated Diagnosis Comme nts CYTOPATHOLOGY Routine 10/02/2010 0:00 EST Results for this procedure are i n the results section . documented in this encounter Results CYTOPATHOLOGY (10/02/2010 0:00 EST) Pathology Report: CYTOPATHOLOGY REPORT ? [facility] ? LAB Reports generated via electr onic interface contain original data; ? however they are lacking the format of the original report. ? Caution should be taken when reading/interpreting unformatted reports. ? Name: ? DONQIANA OMALLEY Naima ? Accession #: ? [id number] ? : ? 1980 (Age: 30) ??F ?Collect Date: ? 10/02/2010 ? Location: ? [facility] ? Receive Date: ? 10/03/2010 ? Provider: ?JAZMIN PILAR L MD ? Copy to: ? Specimen/Source: ? Pap Test, Cervix/Endocervix, ThinPrep Imaging System ? with manual evaluation ? Last Menstrual Period: ? 11/17/10 ? Hormonal/Contraceptive Statu s: ? Intrauterine device: mirena ? Previous Gynecologic Patholo gy: ? GISEL I: 2006 ? Other: ? Additional clinical informat ion: paps WNL since 08/06, 09/07, 09/08 ? SPECIMEN ADEQUACY ? Satisfactory for Eval uation ? - transformation zone compon ent present ? GENERAL CATEGORIZATION ? Negative for Intraepi thelial Lesion or Malignancy ? INTERPRETATION ? Shift in rika presen t suggestive of bacterial vaginosis. ? Document reviewed and electr onically signed by: ? Tiffany [place], [place]( CP) ? Report Date: ??2009 10:27 ? End of Report ? Specimen Performing Organization Address City/State/ZIP Code Phon e Number [facility] [address] [place] [address] [facility] [address] [phone] documented in this encounter Visit Diagnoses Not on filedocumented in this encounter Care Teams Refractory Grinder Operator Relationship Specialty Start Date End Date Nikki Sheridan NP PCP - General 04/02/09 [facility] [address] [place] [address] documented as of this encounter
--- OUTSIDE RECORDS SUMMARY | 2022-05-29 00:27 | XMS_ITS | Encounter Summary ---
:1980 Author Organization [place] [address] Care Team Providers Name Role Phone Alissa Reynolds Primary Care Provider Reason for Visit Reason Comments Back Pain Encounter Details Date Type Department Care Team Description 12/23/2012 Office Visit [facility] Mechanic al low back Gloria ANDERS pain (Primary Dx) [facility] [address] [place] [facility] [address] [place] [address] [phone] Social History Tobacco Use Types Packs/Day Years Used Date Current Every Day Smoker Cigarettes 1 15 Smokeless Tobacco: Never Used Comments: pcp working with pt to quit Sex Assigned at Date Recorded Not on file documented as of this encounter Last Filed Vital Signs Vital Sign Reading Time Taken Comments Blood Pressure 128/78 12/23/2012 10:45 AM EST Pulse - - Temperature - - Respiratory Rate - - Oxygen Saturation - - Inhaled Oxygen Concentration - - Weight 77.1 kg (170 lb) 12/23/2012 10:45 AM EST Height 167.6 cm (5' 6) 12/23/2012 10:45 AM EST Body Mass Index 27.44 12/23/2012 10:45 AM EST documented in this encounter Patient Instructions Patient InstructionsMaria E Mcgregor, HAND DRILLER - 12/23/2012 10:42 AM EST Images from the original note were not included. [facility] Stopping Smoking: After Your Visit Your Care [...] you care for yourself at home? ?? Ask your family, friends, and coworkers for support. You have a better chance of quitting if you have help and support. ?? Join a support group, such as Nicotine Anonymous, for people who are trying to quit smoking. ?? Consider signing up for a smoking cessation program, such as the [place] [employer]'s [place] from Smoking program. ?? Set a quit date. Pick your date carefully so that it is not right in the middle of a big deadlineor stressful time. Once you quit, do not even take a puff. Get rid of all ashtrays and lighters after your last cigarette. Clean your house and your clothes so that they do not smell of smoke. ?? Learn how to be a nonsmoker. Think about ways you can avoid those things that make you reach for a cigarette. ?? Avoid situations that put you at greatest risk for smoking. For some people, it is hard to have adrink with friends without smoking. For others, they might skip a coffee break with coworkers who smoke. ?? Change your daily routine. Take a different route to work or eat a meal in a different place. ?? Cut down on stress. Calm yourself or release tension by doing an activity you enjoy, such as reading a book, taking a hot bath, or gardening. ?? Talk to your doctor or pharmacist about nicotine replacement therapy, which replaces the nicotinein your body. You still get nicotine but you do not use tobacco. Nicotine replacement products help you slowly reduce the amount of nicotine you need. These products come in several forms, many of themavailable larz-ipa-upcrnyk: ?? Nicotine patches ?? Nicotine gum and lozenges ?? Nicotine inhaler ?? Ask your doctor about bupropion (Wellbutrin) or varenicline (Chantix), which are prescription medicines. They do not contain nicotine. They help you by reducing withdrawal symptoms, such as stress and anxiety. ?? Some people find hypnosis, acupuncture, and massage helpful for ending the smoking habit. ?? Eat a healthy diet and get regular exercise. Having healthy habits will help your body move past its craving for nicotine. ?? Be prepared to keep trying. Most people are not successful the first few times they try to quit. Do not get mad at yourself if you smoke again. Make a list of things you learned and think about whenyou want to try again, such as next week, next month, or next year. Where can you learn more? Visit our health information library at [email or web address]/healthinfo. You can also view health information on [employer], your personal patient account. Log in or sign up today. Enter Y522 in the search box to learn more about Stopping Smoking: After Your Visit. ?? [phone] [employer]. Care instructions adapted under license by [facility]. This care instruction is for use with your licensed healthcare professional. If you have questionsabout a medical condition or this instruction, always ask your healthcare professional. [employer] disclaims any warranty or liability for your use of this information. Content Version: 9.1.591094; Last Revised: May 20, 2011 documented in this encounter Progress Notes Saleem Chanel, CHAGO - 12/23/2012 11:24 AM EST Chief Complaint: Chief Complaint Patient presents with ??? Back Pain HPI: This patient is a 32 y.o. female that presents to the spine center for A followup visit on chronic mechanical low back pain she now has been going on for approximately 1 year without a direct mechanism of injury. I last saw the patient she had a central disc protrusion at T11 T12-1 did not cause cord compression, there is a small foraminal disc protrusion at L1-L2 on the right and there is some degenerative disc desiccation and bulging at L5-S1. I suggested attempting physical therapy here witha Enoch based approach and we also prescribed a Medrol Dosepak. She indicates of the Medrol Dosepak did not provide substantial improvement. She does find that physical therapy has helped significantly but has yet to completely resolve his symptoms. Her primary care physician does prescribe her Vicodin as concerns at the patient is using this medication still at this time. She indicates that she is only using Vicodin which is 5/500 normally no more than one to 2 times a day. She'll use this as needed for more intense pain levels. Otherwise she manages with naproxen. She does not describe any radicular pain symptoms although she does feel a vibrating sensation in the right anterior thigh. There is also no numbness or weakness reported. She rates her pain currently as a 3/10 with pain generally ranging between a 0-6 but occasionally she will get a flareup I can bring her pain up to a 10/10. Shedoes not report any bowel or bladder incontinence or myelopathic symptoms. She is continuing to do her home exercise program on a regular basis.. ROS: Negative for any GI, or constitutional symptoms. Medications & Allergies: Are updated on the system. Problem List: Patient Active Problem List Diagnoses Code ??? Mechanical low back pain 724.2 PMH: No past medical history on file. [...] Physical Exam: This patient is a relatively healthy-appearing 32-year-old female who is alert and oriented x3. She emulates with a nonantalgic gait and was able to toe walk, heel walk and tandem walk without difficulty. Neurologically she was intact to sensation, reflexes and strength in both lower extremity. Straight leg raise and cross straight leg raise are both negative. Distal pulses are intact. Imaging: Her prior images from June of 2000 fall did reveal that there is a central disc protrusion at T11-T12 along with a right foraminal disc protrusion at L1-L2 and some degenerative disc desiccation and bulging at L5-S1. Assessment: Chronic mechanical low back pain which has improved but not resolved. Plan: I have again reviewed that her symptoms are hurtful and not harmful and while her pain is somewhat chronic at this point there is still some potential her pain may resolve. We have discussed continuing with physical therapy and we also briefly discussed the functional christian program. It sounds as if she is functioning fairly normal and the program may not be appropriate for her at this time. We did review the benefits and issues with injections versus taking narcotic medications. She has no interest in using injections as a treatment option at this time and since injections are elected Ithink there is no need to proceed in this manner. There is also no way to state that the injection will resolve her pain and is not going to resolve the pain permanently. Based on the minimal amount ofnarcotic use this she is taking no more than one to 2 tablets a day, I think she is of low risk for addiction or tolerance and I think as long as her primary care physician is willing to provide his prescription I see no contraindications in continuing this medication currently. After our discussion and answering the patients questions, we have come to an aggreement in the below stated plan: 1) I will have her followup with the physical therapist here the spine center sometime around January,to make it through the winter season and make sure mechanically she is still progressing. Otherwise I can followup with her as needed at this time. This dictation was performed using [employer] voice recognition dictation. documented in this encounter Plan of Treatment Not on filedocumented as of this encounter Visit Diagnoses Diagnosis Mechanical low back pain - Primary Lumbago documented in this encounter Care Teams Medical Billing Service Relationship Specialty Start Date End Date Alissa Reynolds PA PCP - General 12/23/12 06/18/20 [address] [place] [address] documented as of this encounter
--- OUTSIDE RECORDS SUMMARY | 2022-05-29 00:27 | XMS_ITS | Encounter Summary ---
:1980 Author Organization [facility] [place] [address] Care Team Providers Name Role Phone Alissa Reynolds Primary Care Provider Encounter Details Date Type Department Care Team Description 06/19/2013 Hospital Encounter MRI at [facility] [place] Mechanical low back pain; [facility] [place] [address] Social History Tobacco Use Types Packs/Day [...] Name Priority Date/Time Associated Diagnosis Comme nts MRI LUMBAR SPINE Routine 06/19/2013 9:04 AM Mechanical low edilberto k Results for this WITHOUT CONTRAST EDT pain procedure are in Thoracic back pain the resul ts section. documented in this encounter Results MRI lumbar spine without [...] exam. Juan Parkinson MD IMG MRI ORDERABLES documented in this encounter Visit Diagnoses Diagnosis Mechanical low back pain Lumbago Thoracic back pain Pain in thoracic spine documented in this encounter Care Teams Lead Cook Relationship Specialty Start Date End Date Alissa Reynolds PA PCP - General 12/23/12 06/18/20 [address] [place] [address] documented as of this encounter
--- OUTSIDE RECORDS SUMMARY | 2022-05-29 00:27 | XMS_ITS | Encounter Summary ---
:1980 Author Organization [facility] Address [address] [place] [address] Care Team Providers Name Role Phone Nikki Sheridan STATISTICAL METHODS PROFESSOR Primary Care Provider Encounter Details Date Type Department Care Team Description 03/31/2000 Hospital Encounter [facility] Mendoza Dominguez STATISTICAL METHODS PROFESSOR [address] [place], [place] [id number] Other Unknown, Provider, [address] [place], [place] [id number] Social History Tobacco Use Types Packs/Day Years Used Date Never Assessed Sex Assigned at Date Recorded Not on file documented as of this encounter Plan of Treatment Pending Results Name Type Priority Associated Diagnoses Date/Ti me CYTOPATHOLOGY Pathology Routine 09/30/2009 0:0 0 EST CYTOPATHOLOGY Pathology Routine 09/30/2009 0:0 0 EST Scheduled Orders Name Type Priority Associated Diagnoses Order S chedule CYTOPATHOLOGY Pathology Routine ONCE for 1 Occ urrences starting 09/30/2009 CYTOPATHOLOGY Pathology Routine ONCE for 1 Occ urrences starting 09/30/2009 documented as of this encounter Procedures Procedure Name Priority Date/Time Associated Comments Diagnosis CYTOPATHOLOGY Routine 09/30/2009 0:00 Results for this EST procedure are i n the results section. N.GONORRHOEAE PROBE Routine 03/31/2000 11:00 Resu lts for this EDT procedure are i n the results section. CHLAMYDIA TRACHOMATIS Routine 03/31/2000 11:00 Re sults for this PROBE EDT procedure are i n the results section. PROLACTIN Routine 03/31/2000 11:00 Results for this EDT procedure are i n the results section. TSH Routine 03/31/2000 11:00 Results for this EDT procedure are i n the results section. LH Routine 03/31/2000 11:00 Results for this EDT procedure are i n the results section. FSH Routine 03/31/2000 11:00 Results for this EDT procedure are i n the results section. CYTOPATHOLOGY Routine 03/31/2000 0:00 Results for this EDT procedure are i n the results section. documented in this encounter Results CYTOPATHOLOGY (09/30/2009 0:00 EST) Pathology Report: CYTOPATHOLOGY REPORT ? [facility] ? LAB Reports generated via [employer] interface contain original data; ? however they are lacking the format of the original report. ? Caution should be taken when reading/interpreting unformatted reports. ? Name: ? QIANA OCHOA I ? Accession #: ? [id number] ? : ? 1980 (Age: 29) ??F ?Collect Date: ? 09/30/2009 ? Location: ? [facility] ? Receive Date: ? 09/30/2009 ? Provider: ?NATOLIN HAYG OOD SUPERVISOR/PORT DIRECTOR ? Copy to: ? Specimen/Source: ? Pap Test, Cervix/Endocervix, ThinPrep Imaging System ? with manual evaluation ? Last Menstrual Period: ? Hormonal/Contraceptive Statu s: ? Intrauterine device: Mirena ? Previous Gynecologic Patholo gy: ? GISEL I: 2006 ? Other: ? HPVA - HPV testing requested if ASC-US on the current ThinPrep Pap test. ? SPECIMEN ADEQUACY ? Satisfactory for Eval uation ? - transformation zone compon ent present ? GENERAL CATEGORIZATION ? Negative for Intraepi thelial Lesion or Malignancy ? INTERPRETATION ? Reactive cellular angel nges associated with inflammation present (includes ?? repair). ? Shift in rika present sugge stive of bacterial vaginosis. ? Document reviewed and electr onically signed by: ? Aj B. Ambaye, MD ? Report Date: ??12/04/ 2009 13:52 ? End of Report ? Specimen Performing Organization Address City/[facility]/ZIP Code Phon e Number [facility] [address] [place] [address] SERVICES [facility] [address] [place] [address] N.GONORRHOEAE PROBE (03/31/2000 11:00 EDT) Specimen Cervix [facility] Description LAB Result No Neisseria [facility] gonorrhoeae DNA LAB detected by debug technician mediated amplification. Report Status Final [facility] [id number] LAB Specimen Performing Organization Address City/State/ZIP Code Phon e Number [facility] [address] [place] [address] SERVICES [facility] [address] [place] [address] CHLAMYDIA TRACHOMATIS PROBE (03/31/2000 11:00 EDT) Specimen Cervix [facility] Description LAB Result No Chlamydia [facility] trachomatis DNA LAB detected by debug technician mediated amplification. Report Status Final [facility] [id number] LAB Specimen Performing Organization Address [facility] Phon e Number [facility] [address] [place] [address] SERVICES [facility] [address] [place] [address] TSH (03/31/2000 11:00 EDT) Pathologist Sig nature TSH 1.18 0.35 - 5.50 uIU/ml [facility] Specimen Performing Organization Address [facility] Phon e Number [facility] [address] [place] [address] SERVICES [facility] [address] [place] [address] PROLACTIN (03/31/2000 11:00 EDT) Pathologist Sig nature Prolactin 8.5 ng/ml [facility] Comment: Non-: 2.8-29.2 : 9.7-208.5 Post Menopausal: 1.8-20.3 Specimen Performing Organization Address [facility] Phon e Number [facility] [address] [place] [address] SERVICES [facility] [address] [place] [address] LH (03/31/2000 11:00 EDT) Pathologist Sig nature LH 27.4 mIU/ml [facility] Comment: Follicular: 1-18 Mid-Cycle Peak: 15-80 Luteal: 0.5-18 Postmenopausal: 12-55 Note new reference range. Specimen Performing Organization Address [facility] Phon e Number [facility] [address] [place] [address] SERVICES [facility] [address] [place] [address] FSH (03/31/2000 11:00 EDT) Pathologist Sig nature FSH 5.4 mIU/ml [facility] Comment: Follicular: 2-11 Mid-Cycle Peak: 3.4-35 Luteal: 1-9 Postmenopausal: 25-120 Note new reference range. Specimen Performing Organization Address [facility]/ZIP [facility] Phon e Number [facility] [address] [place] [address] SERVICES [facility] [address] [place] [address] CYTOPATHOLOGY (03/31/2000 0:00 EDT) Pathology Report: CYTOPATHOLOGY REPORT [facility] Reports generated via electronic interface contain john ginal data; however they are lacking the format of the original re port. Caution should be taken when reading/interpreting unfo rmatted reports. Name: ? IFTIKHAR OCHOA I ? Accession #: ? [id number] : ? 1980 (Age: 20) ??F ?Collect Date: ? 03/03 Location: ? [facility] ? Receive Date : ? 04/02/2000 Provider: ?SUHAIL DOMINGUEZ STATISTICAL METHODS PROFESSOR Copy to: ? Specimen/Source: ?ThinPrep Pap Test, Source Not Provided Last Menstrual Period: ? 12/26/99 Previous Gynecologic Pathology: ? Yes: 1998. Treatment History: ? Colposcopy: Normal follow up. ? SPECIMEN ADEQUACY ? Satisfactory for evaluation. GENERAL CATEGORIZATION ? Within Normal Limits ? Document reviewed and electronically signed by: ? HORACE Curiel(ASCP) ? Report Date: ??04/02/2000 13:13 End of Report Specimen Performing Organization Address City/State/ZIP Code Phon e Number [facility] [address] [place] [address] SERVICES [facility] [address] [place] [address] documented in this encounter Visit Diagnoses Not on filedocumented in this encounter Care Teams Academic Affairs Assistant Relationship Specialty Start Date End Date Nikki Sheridan NP PCP - General 04/02/09 [facility] [address] [place] [address] documented as of this encounter
--- OUTSIDE RECORDS SUMMARY | 2022-05-29 00:27 | XMS_ITS | Encounter Summary ---
:1980 Author Organization [facility] Address [address] [place] [address] Care Team Providers Name Role Phone Nikki Sheridan MACHINE STONE POLISHER Primary Care Provider Encounter Details Date Type Department Care Team Description 09/06/2007 Results Only [facility] - Susan Shannon MD [place] [address] [place] [address] [place] [address] Social History Tobacco Use Types Packs/Day Years Used Date Never Assessed Sex Assigned at Date Recorded Not on file documented as of this encounter Plan of Treatment Not on filedocumented as of this encounter Procedures Procedure Name Priority Date/Time Associated Diagnosis Comme nts CYTOPATHOLOGY Routine 09/06/2007 0:00 EST Results for this procedure are i n the results section . documented in this encounter Results CYTOPATHOLOGY (09/06/2007 0:00 EST) Pathology Report: CYTOPATHOLOGY REPORT [facility] Reports generated via electronic interface contain john ginal data; however they are lacking the format of the original re port. Caution should be taken when reading/interpreting unfo rmatted reports. Name: ? IFTIKHAR OCHOA I ? Accession #: ? [id number] : ? 1980 (Age: 27) ??F ?Collect Date: ? 110 04/2007 Location: ? [facility] ? Receive Date : ? 09/07/2007 Provider: ?BARBY SHANNON MD Copy to: ? Specimen/Source: ? ThinPrep Pap Test, Cervix/Endocervix, processed on [address] ThinPrep Imaging System, with manual evaluation Last Menstrual Period: ? Previous Gynecologic Pathology: ? GISEL I: 03/06 ? SPECIMEN ADEQUACY ? Satisfactory for Evaluation - transformation zone component present GENERAL CATEGORIZATION ? Negative for Intraepithelial Lesion or Malignan cy ? Document reviewed and electronically signed by: ? HORACE Curiel(ASCP) ? Report Date: ??09/12/2007 13:12 End of Report Specimen Performing Organization Address City/State/ZIP Code Phon e Number [facility] [address] [place] [address] SERVICES [facility] [address] [place] [address] documented in this encounter Visit Diagnoses Not on filedocumented in this encounter Care Teams Discharge Planner Relationship Specialty Start Date End Date Nkiki Sheridan NP PCP - General 04/02/[address] [facility] [address] [place], [place] [address] documented as of this encounter
--- OUTSIDE RECORDS SUMMARY | 2022-05-29 00:27 | XMS_ITS | Encounter Summary ---
:1980 Author Organization [facility] Address [address] [place] [address] Care Team Providers Name Role Phone Fatimah Nikki Danilo SAUSAGE MEAT TRIMMER Primary Care Provider Encounter Details Date Type Department Care Team Description 09/18/2016 Results Only [facility] Maryana Faith MD [phone] [address] [facility] [place], [place] [address] (Wo rk) Social History Tobacco Use Types Packs/Day Years Used Date Never Assessed Sex Assigned at Date Recorded Not on file documented as of this encounter Plan of Treatment Not on filedocumented as of this encounter Procedures Procedure Name Priority Date/Time Associated Diagnosis Comme nts CYTOPATHOLOGY Routine 09/11/2016 0:00 EST Results for this procedure are i n the results section . documented in this encounter Results CYTOPATHOLOGY (09/11/2016 0:00 EST) Pathology Report: CYTOPATHOLOGY REPORT [facility] Reports generated via electronic interface contain john ginal data; SERVICES however they are lacking the format of the original re port. Caution should be taken when reading/interpreting unfo rmatted reports. Name: ? IFTIKHAR LEAVITT I ? Accession #: ? [id number] : ? 1980 (Age: [age]) ??F ?Collect Date: ? 09/01 Location: ? [facility] ? Receive Date: ? 09/18/2016 Provider: ? MARYANA FAITH MD Copy to: ? CYTOLOGIC DIAGNOSIS: URINE, VOIDED, CYTOLOGIC EVALUATION: - ??No malignant cells identified. See comment. - ??Rare benign urothelial cells identified. - ??Specimen predominantly c omposed of abundant squamous cell contamination with associated bacteria. ? COMMENT: Cytologic evaluation reveals a specimen composed predo minantly of abundant squamous cell contamination with only ra re benign urothelial cells visualized. If clinically concerned, an additional sample sh ould be obtained and sent for cytologic evaluation. Dr. Bhatia 09/18/2016 11:09 AM Document reviewed and electronically signed by: ? LOLI BHATIA MD Report Date: ??09/18/2016 16:18 By the signature above, the attending physician certif ies that he/she has personally conducted a gross and/or microscopic examin ation of the described specimens and rendered or confirmed the above diagnosi s. Specimen Type: ? Urine, Voided Clinical History: ? Microhematuria. clinical diagnosis code: ??R31.2. ? Gross Description: ? 100ccs of clear yellow fluid were receiv ed and processed by selective cellular enhancement technique. ? End of Report Specimen Performing Organization Address City/State/ZIP Code Phon e Number [facility] [address] [place] [address] SERVICES documented in this encounter Visit Diagnoses Not on filedocumented in this encounter Care Teams Identification Officer Relationship Specialty Start Date End Date Nikki Sheridan NP PCP - General 04/02/09 [facility] [address] [place] [address] documented as of this encounter
--- OUTSIDE RECORDS SUMMARY | 2022-05-29 00:27 | XMS_ITS | Encounter Summary ---
:1980 Author Organization [facility] [place] [address] Care Team Providers Name Role Phone Alissa Reynolds Primary Care Provider Encounter Details Date Type Department Care Team Description 06/19/2013 [place] [facility] [place] pain; [facility] [place] [address] Social History Tobacco Use Types Packs/Day [...] Priority Date/Time Associated Diagnosis Comme nts MRI THORACIC SPINE Routine 06/19/2013 8:45 AM Mechanical low b ack Results for this WITHOUT CONTRAST EDT pain procedure are in Thoracic back pain the resul ts section. documented in this encounter Results MRI thoracic spine without contrast (06/19/2013 8:45 [...] spine documented in this encounter Care Teams System Administration Advisor Relationship Specialty Start Date End Date Alissa Reynolds PA PCP - General 12/23/12 06/18/20 [address] [place] [address] documented as of this encounter
--- OUTSIDE RECORDS SUMMARY | 2022-05-29 00:27 | XMS_ITS | Encounter Summary ---
:1980 Author Organization [facility] [place] [address] Care Team Providers Name Role Phone Alissa Reynolds Primary Care Provider Reason for Visit Reason Comments Skin Lesion neck and forehead Encounter Details Date Type Department Care Team Description 12/22/2016 Office Visit Dermatology at [facility] Willy Maya MD Spider angioma [address] [place] [address] [place] [address] [place] [address] [phone] (Wo rk) Social History Tobacco Use Types Packs/Day Years Used Date Current Every Day Smoker Cigarettes 1 15 Smokeless Tobacco: Never Used Comments: smoking 0.5ppd-1ppd- pcp presc ibed chantix- has at home when has quit date Sex Assigned at Date Recorded Not on file documented as of this encounter Progress Notes Willy Maya MD - 12/22/2016 3:45 PM EST PROBLEM: 1. New skin lesion of concern. 2. History of spider angioma right mid lateral cheek. Beck follows up and has 2 new spider angiomas, one on her central forehead, one on the upper presternal chest at the base of her neck. Physical examination confirms this. ASSESSMENT AND PLAN: Spider angiomas. a. Today, after obtaining informed consent, sites were anesthetized, and then using the Birtcher Hyfrecator with a setting of 2.8 rojas and an epilating needle, the sites were treated. b. Wound care instructions were given. c. Return to clinic in January for repeat check as I suspect that the upper presternal chest site may require a 2nd round of therapy. May cancel if doing well. cc: Alissa Reynolds PA-C documented in this encounter Plan of Treatment Not on filedocumented as of this encounter Visit Diagnoses Diagnosis Spider angioma Nevus, non-neoplastic documented in this encounter Care Teams Delivery Representative Relationship Specialty Start Date End Date Alissa Reynolds PA PCP - General 12/23/12 06/18/20 [address] [place] [address] documented as of this encounter
--- OUTSIDE RECORDS SUMMARY | 2022-05-29 00:27 | XMS_ITS | Encounter Summary ---
:1980 Author Organization [facility] Address [address] [place] [address] Care Team Providers Name Role Phone Nikki Norris NP Primary Care Provider Encounter Details Date Type Department Care Team Description 11/06/2011 Results Only [facility] Jose Turner, RN FIRST ASSISTANT Laboratory Services - [address] [address] [place], [place] [id number] [phone] Social History Tobacco Use Types Packs/Day Years Used Date Never Assessed Sex Assigned at Date Recorded Not on file documented as of this encounter Plan of Treatment Not on filedocumented as of this encounter Procedures Procedure Name Priority Date/Time Associated Diagnosis Comme nts PAP TEST- RESULT Routine 11/06/2011 0:00 EST Resu lts for this ONLY procedure are i n the results section. documented in this encounter Results PAP TEST- RESULT ONLY (11/06/2011 0:00 EST) Pathology Report: CYTOPATHOLOGY REPORT [facility] Reports generated via electronic interface contain john ginal data; however they are lacking the format of the original re port. Caution should be taken when reading/interpreting unfo rmatted reports. Name: ? IFTIKHAR OCHOA I ? Accession #: ? [id number] : ? 1980 (Age: 31) ??F ?Collect Date: ? 01/0 04/2012 Location: ? [facility] ? Receive Date : ? 11/09/2011 Provider: ?ANTOLIN SAMANTA RN FIRST ASSISTANT Copy to: ?NIKKI NORRIS BODY SHOP TECHNICIAN ? Specimen/Source: ? Pap Test, Cervix/Endocervix, ThinPrep Imaging System with manual evaluation Last Menstrual Period: ? Hormonal/Contraceptive Status: ? Depo-Provera Previous Gynecologic Pathology: ? GISEL I: 2006 ? SPECIMEN ADEQUACY ? Satisfactory for Evaluation - transformation zone component present GENERAL CATEGORIZATION ? Negative for Intraepithelial Lesion or Malignan cy INTERPRETATION ? Reactive cellular angel nges associated with inflammation present (includes repair). ? Document reviewed and electronically signed by: ? MIR LICONA MD ? Report Date: ??11/12/2011 16:02 End of Report Specimen Performing Organization Address City/State/ZIP Code Phon e Number [facility] [address] [place] [address] SERVICES [facility] [address] [place] [address] documented in this encounter Visit Diagnoses Not on filedocumented in this encounter Care Teams Molybdenum Steamer Operator Relationship Specialty Start Date End Date Nikki Norris, BODY SHOP TECHNICIAN PCP - General 04/02/09 [facility] [address] [place], [place] [id number] documented as of this encounter
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
--- OUTSIDE RECORDS SUMMARY | 2022-05-29 00:27 | XMS_ITS | Encounter Summary ---
:1980 Author Organization [facility] Address [address] [place] [address] Care Team Providers Name Role Phone Unavailable Primary Care Provider Unavailable Encounter Details Date Type Department Care Team Description 03/28/2009 Orders Only [facility] Adele Irving MD Laboratory Services - [address] [place] [address] [address] [facility] [place] [address] [phone] Social History Tobacco Use Types Packs/Day Years Used Date Never Assessed Sex Assigned at Date Recorded Not on file documented as of this encounter Plan of Treatment Not on filedocumented as of this encounter Procedures Procedure Name Priority Date/Time Associated Diagnosis Comme [facility] SURGICAL PATHOLOGY Routine 03/28/2009 0:00 EDT Re sults for this procedure are i n the results section. documented in this encounter Results SURGICAL PATHOLOGY (03/28/2009 0:00 EDT) Pathology Report: SURGICAL PATHOLOGY REPORT ? [facility] Reports generated via [employer] interface contain original data; ? LAB however they are lacking the format of the original report. ? Caution should be taken when reading/interpreting unformatted reports. ? Name: ? DON, KATHAL EENA I ? Accession #: ? [id number] ? : ? 1980 (Age: 29) ??F ? Collec t Date: ? 03/28/2009 ? Location: ? [facility] ? R eceive Date: ? 03/29/2009 ? Provider: LATOYA BERRIAN MD ? Copy to: NEAHL G TANEY SILVERWARE ETCHER ? Final Pathologic Diagnosis: ? Skin of shoulder, lef t, excisional biopsy: ? 1. ?Melanocytic nevus, compound type, with unusual architectural ? features and severe cytologi c atypia. ??See comment. ? - Nevus extends to pe ripheral margin of excisional biopsy specimen. ? Comment: ? Multiple deeper secti ons of the excision were reviewed. ??The excision ? consists of a compound melan ocytic nevus that has significant architectural ? disorder and cytologic atypi a. ??The junctional component extends beyond the ? dermal component and is white sected at the peripheral margin of the excision. ? Given the degree of atypia, re-excision to completely remove the lesion is ? recommended. ??(Dr. Wilburn)/mm s ? Microscopic Description: ? Sections consist of a n excision of skin to the deep reticular dermis. ? There is a broad compound me lanocytic proliferation that spans much of the ? excision specimen. ??The int raepidermal component extends beyond the dermal ? component in a somewhat asym metric fashion. ??The junctional melanocytes are ? arranged in nests and as ind ividual cells. ??The nests are mainly in the central portion of the lesion and ar e ill-defined. ??Individual melanocytes predominate ?? laterally and are unevenly s paced. ??In some areas, the individual melanocytes ?? are crowded, but well develo ped confluent growth is not evident. ??The ? melanocytes do not show tend ency toward upward migration. ??The junctional ? melanocytes are large and sh ow significant variation in nuclear size and shape. There are occasional large f orms with dark hyperchromatic nuclei. ??Multinucleate forms are also evident. ??Th e dermal component is roughly wedge-shaped. ??The ? melanocytes have more abunda nt cytoplasm and a moderate-marked degree of nuclear pleomorphism. ??In general, the melanocytes show features of maturation with ? nests diminishing to cords i n the deep dermis. ??No definitive mitotic figures ?? are identified on either the original or additional deeper sections. ??( ? Cosmo)/mms ? Document reviewed and electr onically signed by: ? Tonya Wilburn, MD ? Report ??Date: 04/02/2009 16 :38 ? By the signature above, the attending physician certifies that he/she has ? personally conducted a gross and/or microscopic examination of the described ? specimens and rendered or co nfirmed the above diagnosis. ? Specimen(s) Received: ? Elliptical excision t o level of subdermal fat ? Clinical History: ? 8.0 mm lesion L shoul mario area ??raised, pink, has been gradually growing ? Gross Description: ? Received in formalin labelled [place], [place] and mole on left ? shoulder is an unoriented e lliptical excision of dozier-white skin measuring 1.2 x 0.8 cm and is excised to a d epth of 0.5 cm. ??There is a central dozier-white ? asymmetrical flat papule sue suring 0.6 x 0.3 x 0.1 cm. ??The margins are inked ?? black. ??The specimen is ser ially sectioned and entirely submitted as (A1) ? central sections and (A2) ?? tips, reverse en face. ??(Ashtyn Gibson)/tmg ? End of Report ? Specimen Performing Organization Address City/State/ZIP Code Phon e Number [facility] [address] [place] [address] SERVICES [facility] [address] [place] [address] documented in this encounter Visit Diagnoses Not on filedocumented in this encounter
--- OUTSIDE RECORDS SUMMARY | 2022-05-29 00:27 | XMS_ITS | Encounter Summary ---
:1980 Author Organization [facility] [place] [address] Care Team Providers Name Role Phone Juanis Irving MD Primary Care Provider Encounter Details Date Type Department Care Team Description 07/02/2012 External Results [place] at [facility] [place] Alissa Reynolds, [address] [place] [address] [place] [address] [address] [employer] [phone] (Wo rk) Social History Tobacco Use Types Packs/Day Years Used Date Never Assessed Sex Assigned at Date Recorded Not on file documented as of this encounter Plan of Treatment Not on filedocumented as of this encounter Procedures Procedure Name Priority Date/Time Associated Diagnosis Comme nts MRI/MRA SCAN Routine 06/29/2012 documented in this encounter Results Scan Doc: MRI/MRA (06/29/2012) Anatomical Region Laterality Modality Other Narrative This result has an attachment that is no t available. Alissa ANDERS MEDIA MGR SCAN EXT ORDR/RSLT documented in this encounter Visit Diagnoses Not on filedocumented in this encounter Care Teams Contract Modeler Relationship Specialty Start Date End Date Juanis Irving MD PCP - General 09/23/10 07/28/12 [address] [employer] [address] documented as of this encounter
--- OUTSIDE RECORDS SUMMARY | 2022-05-29 00:27 | XMS_ITS | Encounter Summary ---
:1980 [place] [address] Care Team Providers Name Role Phone Alissa Reynolds Primary Care Provider Encounter Details Date Type Department Care Team Description 08/14/2014 Hospital Encounter Radiology Library at [facility], [place], [place] [facility] [place] [address] [place] [address] MEDICINE [phone] [place] [id number] (Wo rk) Social History Tobacco Use Types [...] Procedure Name Priority Date/Time Associated Comments Diagnosis FILM LIBRARY STORAGE Routine 08/14/2014 12:00 AM Pain Results for this ONLY ULTRASOUND EDT procedure ar madhavi in STUDY the results section. documented in this encounter Results Film Library- Storage Only Ultrasound Study (08/14/2014 12:00 AM EDT) Specimen (Source) Anatomical Location Collection Method / Collectio n Time Received Time / Laterality Volume Narrative [facility] - 10/07/2016 9:37 PM EST This exam is for storage only and is aut o-finalizing. Joshua Zuluaga MD IMG FILM LIBRARY ORDERABLES Performing Organization Address City/State/ZIP Code Phon e Number [place], [place] documented in this encounter Visit Diagnoses Diagnosis Pain Generalized pain documented in this encounter Care Teams Set Painter Relationship Specialty Start Date End Date Alissa Reynolds PA PCP - General 12/23/12 06/18/20 [address] [place] [address] documented as of this encounter
--- OUTSIDE RECORDS SUMMARY | 2022-05-29 00:27 | XMS_ITS | Encounter Summary ---
:1980 Author Organization [facility] [address] Care Team Providers Name Role Phone Alissa Reynolds Primary Care Provider Reason for Visit Reason Comments Back Pain Encounter Details Date Type Department Care Team Description 02/03/2013 Office Visit [facility] at [facility] Mechanical low back [place] Nikki Sheridan APRN [address] [place] [address] pain (Primary Dx) [facility] Juanis Irving MD [address] [place], [place] [address] [place] [address] Social History Tobacco Use Types Packs/Day Years Used Date Current Every Day Smoker Cigarettes 1 15 Smokeless Tobacco: Never Used Comments: pcp working with pt to quit Sex Assigned at Date Recorded Not on file documented as of this encounter Progress Notes [facility], PT - 02/03/2013 11:01 AM EDT Spine Center Physical Therapy Note Referring provider: Saleem ANDERS Diagnosis: mechanical low back pain Date of onset: April 2012 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 Hernandez reports since her last appointment here in the Spine Center her symptoms seem to have remained unchanged and the home exercise program is going well. She requests that we reviewed her low back exercises but also see if there is anything she can do to strengthen her upper extremities. Ms. Hernandez currently complains of low back pain extending from T11 to S1, right greater than left. There is intermittent numbness and tingling in the right buttocks and the lateral aspect of the right thigh and no weakness. The pain is rated 1/10 at its least and 6/10 at its worst. Symptoms worsen with bending, prolonged sitting, standing, walking, lifting, and driving. Symptoms [...] fully. Abdominal and trunk extensor strength is 4/5. Slouched sitting lessens the pain while sitting [...] flexion in lying once daily. She was also prescribed upper extremity Thera-Band exercises (biceps curl, shoulder press, low row, horizontal abduction, UE D1D2 FES and shoulder external rotation with the arm at the side),TYI exercises, scapular retraction in prone, and external rotation in the side lying position). She was encouraged to continue to use her flexion-based self-care strategies as needed throughout the day to relieve the pain. Assessment: Ms. Chavez pain intensity seems to be improving and she is ready to progress the home exercise program. Goals: Able to perform the home exercise program independently. Able to sleep through the night. 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 Able to stand and walk without discomfort. Plan: Follow up in 4 weeks to reassess and progress the home exercise program. Ms. Hernandez was encouraged to call with any questions or concerns regarding todays visit or the home exercise program. Length of visit: A total of 45 minutes was spent re-assessing, treating, and instructing Beck Hernandez in a home exercise program. documented in this encounter Plan of Treatment Not on filedocumented as of this encounter Visit Diagnoses Diagnosis Mechanical low back pain - Primary Lumbago documented in this encounter Care Teams Bell Person Relationship Specialty Start Date End Date Alissa Reynolds PA PCP - General 12/23/12 06/18/20 [address] [place] [address] documented as of this encounter
--- OUTSIDE RECORDS SUMMARY | 2022-05-29 00:27 | XMS_ITS | Encounter Summary ---
:1980 [place] [address] Care Team Providers Name Role Phone Alissa Reynolds Primary Care Provider Encounter Details Date Type Department Care Team Description 10/07/2016 Hospital Encounter Radiology Library at [facility], [place], [place] [facility] [place] [address] [place] [address] MEDICINE [phone] [place] [phone] (Wo rk) Social History Tobacco Use Types [...] Name Priority Date/Time Associated Diagnosis Comme nts FILM LIBRARY Routine 10/07/2016 12:00 AM Pain Results for this STORAGE ONLY CT EST procedure ar e in ABDOMEN AND PELVIS the resul ts section. documented in this encounter Results Film Library- Storage Only CT Abdomen & Pelvis (10/07/2016 12:00 AM EST) Specimen (Source) Anatomical Location Collection Method / Collectio n Time Received Time / Laterality Volume Narrative [facility] - 10/07/2016 9:34 PM EST This exam is for storage only and is aut o-finalizing. Joshua Zuluaga MD G FILM LIBRARY ORDERABLES Performing Organization Address City/State/ZIP Code Phon e Number [place], [place] documented in this encounter Visit Diagnoses Diagnosis Pain Generalized pain documented in this encounter Care Teams Flight Follower Relationship Specialty Start Date End Date Alissa Reynolds PA PCP - General 12/23/12 06/18/20 [address] [place] [address] documented as of this encounter
--- OUTSIDE RECORDS SUMMARY | 2022-05-29 00:27 | XMS_ITS | Encounter Summary ---
:1980 Author Organization [facility] [place] [address] Care Team Providers Name Role Phone Alissa Reynolds Primary Care Provider Reason for Referral Psychiatric (Routine) - Closed Specialty Diagnoses / Procedures Referred By Contact Refer red To Contact Psychiatry Diagnoses Mechanical low back pain Thoracic back pain [facility] 3[facility] Sobeida Iniguez, PhD [facility] [place] [address] [place] [address] Phone: Fax: Referral ID Status Reason Start Date Expiration Date Visits V isits Requested Authorized [id number] Closed Assume 06/19/2013 12/16/2013 1 1 Subset of Care Reason for Visit Reason Comments Back Pain Encounter Details Date Type Department Care Team Description 06/19/2013 Office Visit [facility] DR RAY maier low back pain (Primary Dx); Saleem Leon PA [facility] [place] [address] [place] [id number] Social History Tobacco Use Types Packs/Day Years Used Date Current Every Day Smoker Cigarettes 1 15 Smokeless Tobacco: Never Used Comments: smoking 0.5ppd-1ppd- pcp presc ibed chantix- has at home when has quit date Sex Assigned at Date Recorded Not on file documented as of this encounter Last Filed Vital Signs Vital Sign Reading Time Taken Comments Blood Pressure - - Pulse - - Temperature - - Respiratory Rate - - Oxygen Saturation - - Inhaled Oxygen Concentration - - Weight 81.6 kg (180 lb) 06/19/2013 11:23 AM EDT Height 168.9 cm (5' 6.5) 06/19/2013 11:23 AM EDT Body Mass Index 28.62 06/19/2013 11:23 AM EDT documented in this encounter Patient Instructions Patient Viky Nichols LPN - 06/19/2013 11:24 AM EDT Welcome to Where[facility], your secure online access to your electronic medical record at [facility]. Using WhereNet you will be able to send messages to your providers, view your test results, renew prescriptions, schedule appointments, and much more. Follow these instructions to enter your personal WhereNet account for the first time: 1. Start your internet browser and type [email or web address] into the address bar. 2. In the New User box on the right-hand side of the Welcome page click the link that states, ???I have an activation code.?? 3. On the Identification page, follow these steps: a) Enter your WhereNet activation code: [email or web address] b) Expires: 08/03/2013 11:24 AM IMPORTANT: This Activation Code will on the above mentioned date. If you do not sign up for WhereNet by this date, you will need to request another activation code. c) Enter your date of , using the calendar tool provided. d) Enter your Zip code. e) Select ???submit?? to go to the next page. 4. On the Create Account page, follow these steps: a) Create a WhereNet username. This can???t be changed, so choose one you won???t forget. b) Create a password that???s at least six characters long, and that contains at least two numbers. Your password can be changed at any time. Confirm your password by entering it once more. c) Enter your email address. This will be used to alert you to new information. Confirm your email address by entering it once more. d) Enter your security question. This will be used if you forget your password. e) Enter your security answer. Confirm your security answer by entering it once more. f) Select ???submit?? to view your electronic medical record. If you have any questions about myD-H or your Access Code, please call for [place], for [place] or for [place]. If you need technical support, please e-mail [email or web address]. Remember, myD-H is NOT for urgent needs! Always dial 911 for medical emergencies. documented in this encounter Progress Notes Saleem Chanel PA - 06/19/2013 11:58 AM EDT Chief Complaint: Chief Complaint Patient presents with ??? Back Pain HPI: This patient is a 33 y.o. female that presents to the spine center for A followup visit on chronic low back and thoracic back pain which appears primarily mechanical. Her previous did refer the patient to physical therapy here in the spine center, she found some relief, and continues to do her home exercise program. There were some problems related to needing time out of work and her primary care physician referred her back to the spine center. Her pain is primarily in the lower lumbar spine but she does get some pain in the lower thoracic spine as well. She does not describe radicular pain symptoms but does indicate recently she's got a little bit of right buttock pain with some tingling sensations in the right groin. I did have her perform a work readiness assessment for guidance on her work status. I also ordered an updated lumbar and thoracic MRI to review the images with the patient and she is here to review these findings today. ROS: Negative for any GI, or constitutional symptoms. Medications & Allergies: Are updated on the system. Problem List: Patient Active Problem List Diagnosis Code ??? Mechanical low back pain 724.2 ??? Thoracic back pain 724.1 PMH: No past medical history on file. PSH: No past surgical history on file. Social Hx: History Social History ??? Marital Status: Spouse Name: N/A Number of Children: N/A ??? Years of Education: N/A Occupational History ??? Not on file. Social History Main Topics ??? Smoking status: Current Every Day Smoker -- 1.0 packs/day for 15 years Types: Cigarettes ??? Smokeless tobacco: Never Used Comment: smoking 0.5ppd-1ppd- pcp prescibed chantix- has at home when has quit date ??? Alcohol Use: Not on file ??? Drug Use: Not on file ??? Sexually Active: Not on file Other Topics Concern ??? Not on file Social History Narrative ??? No narrative on file Physical Exam: This was a discussion this visit I did not repeat physical exam on the patient. She is a somewhat heavyset 33-year-old female who is alert and oriented x3. Imaging: The MRI of the thoracic and lumbar spine does demonstrate a she vaughn is to have the left paracentral disc protrusion at T11-T12 which indents the thecal sac but does not cause significant cord compression or cord signal changes. She also has a small right foraminal disc protrusion at L1-L2 which does not appear to cause nerve compression or significant canal or foraminal narrowing. She does also degenerative disc desiccation and disc bulging at L5-S1 with a small amount of extruded nature ofmigrating caudally towards the left, and it does not compress any nerve roots. These are relatively stable images. I reviewed the images with the patient. Assessment: Continued chronic mechanical low back and thoracic back pain. Plan: I have reviewed the images with the patient and discussed with her that there is no significant interval change between her imaging although there may be slightly greater disc bulging at L5-S1. Talking with the patient she does not have an interest in injections which we have discussed before and I see no clear surgical indications although she is also not interested in this treatment option either. I reviewed the option of the functional zoroastrian program, but she does not feel she could attend this program at this time. She also does not want to continue further physical therapy in the spine center as she is continuing her home exercise program. At this time I am limited in the spine center for treatment options on this patient. It appears that her primary interest is to be able to periodically have it out of work note when her back pain is flaring up, which I think can be done locallythrough her primary care physician rather than make the trip down to the spine center. I did also discuss meeting with a cognitive behavioral therapist to learn some coping show allergies. She did sounds somewhat opened to this option. After our discussion and answering the patients questions, we havecome to an aggreement in the below stated plan: 1) I have referred the patient to the psychology department to see Dr. Benedict Iniguez for guidance on target behavioral therapy for chronic pain 2) I will follow up with the patient on a PRN basis, they have my card if there are any questions orconcerns. This dictation was performed using [employer] voice recognition dictation. documented in this encounter Miscellaneous Notes Miscellaneous - Provider, Scanning - 07/05/2013 9:49 AM EDT documented in this encounter Plan of Treatment Scheduled Referrals Name Type Priority Associated Order Schedule Diagnoses Referral to Outpatient Referral Routine Mechanical low back O rdered: Psychiatry pain 06/19/2013 Thoracic back pain documented as of this encounter Visit Diagnoses Diagnosis Mechanical low back pain - Primary Lumbago Thoracic back pain Pain in thoracic spine documented in this encounter Care Teams Special Services Agent Relationship Specialty Start Date End Date Alissa Reynolds PA PCP - General 12/23/12 06/18/20 [address] [place] [address] documented as of this encounter
--- OUTSIDE RECORDS SUMMARY | 2022-05-29 00:27 | XMS_ITS | Encounter Summary ---
:1980 [place] [address] Care Team Providers Name Role Phone Unavailable Primary Care Provider Unavailable Encounter Details Date Type Department Care Team Description 04/02/2009 Hospital Encounter Radiology Library at [place], [place] Donalds[place], [place] [facility] [place] [facility] [place] [address] [place] [address] MEDICINE [phone] [place], [place] [address] (Wo rk) Social History Tobacco Use Types Packs/Day Years Used Date Never Assessed Sex Assigned at Date Recorded Not on file documented as of this encounter Plan of Treatment Not on filedocumented as of this encounter Procedures Procedure Name Priority Date/Time Associated Diagnosis Comme nts FILM LIBRARY Routine 04/02/2009 12:00 AM Pain Results for this STORAGE ONLY CT EDT procedure ar e in ABDOMEN AND PELVIS the resul ts section. documented in this encounter Results Film Library- Storage Only CT Abdomen & Pelvis (04/02/2009 12:00 AM EDT) Specimen (Source) Anatomical Location Collection Method / Collectio n Time Received Time / Laterality Volume Narrative RAD - 10/07/2016 9:47 PM EST This exam is for storage only and is aut o-finalizing. Joshua Zuluaga MD IMG FILM LIBRARY ORDERABLES Performing Organization Address City/State/ZIP Code Phon e Number RAD [place], [place] documented in this encounter Visit Diagnoses Diagnosis Pain Generalized pain documented in this encounter
--- OUTSIDE RECORDS SUMMARY | 2022-05-29 00:27 | XMS_ITS | Encounter Summary ---
:1980 Author Organization [facility] Address [address] [place] [address] Care Team Providers Name Role Phone Alissa Reynolds Primary Care Provider Reason for Visit Reason Onset Date Comments Questions 05/23/2013 re request from [facility] Marley Spoon Encounter Details Date Type Department Care Team Description 05/23/2013 Telephone Spine Center at [facility] non Adina Zapata Questions (re request [facility] Charo RN from [employer]) [place] [address] Social History Tobacco Use Types Packs/Day Years Used Date Current Every Day Smoker Cigarettes 1 15 Smokeless Tobacco: Never Used Comments: smoking 0.5ppd-1ppd- pcp presc ibed chantix- has at home when has quit date Sex Assigned at Date Recorded Not on file documented as of this encounter Miscellaneous Notes Telephone Encounter - Adina Zapata RN - 05/23/2013 3:33 PM EDT Received call from pt subsequent to initial call this am whereby pt was advised that the paperwork received from [facility] was faxed to them 05/18/13. Pt requesting copy of that paper work. Patient also identified that additional information was being sought from [facility], heidi Kirby. Call placed to Marina to obtain letter that was reportedly sent. Upon reciept; call placed to pt to discuss the letter along with follow-up discussion with Saleem Chanel. Reviewedwith pt need for test and measures and an allowance of a two wk time block at 2 days per week with the accommodations allowed by work place (no lifting and in-town driving <30miles per day). Explained that after two weeks 06/05 we would release her to 5 days per week with the continued accommodationsunless WRAP indicated otherwise. Letter from [facility] to be scanned; notation made onscanned document referencing - letter dated today 05/23 which was faxed in response. Patient mailed copy of the 05/23 letter, documented in this encounter Plan of Treatment Not on filedocumented as of this encounter Visit Diagnoses Not on filedocumented in this encounter Care Teams Strategic Sourcing Consultant Relationship Specialty Start Date End Date Alissa Reynolds PA PCP - General 12/23/12 06/18/20 [address] [place] [address] documented as of this encounter
--- OUTSIDE RECORDS SUMMARY | 2022-05-29 00:27 | XMS_ITS | Encounter Summary ---
:1980 Author Organization [facility] Address [address] [place] [address] Care Team Providers Name Role Phone Nikki Sheridan DIRECTOR OF RESIDENCE LIFE Primary Care Provider Encounter Details Date Type Department Care Team Description 09/13/2014 Hospital Encounter [facility] [place] Unknown, Provider, [facility] [address] [facility] [phone] [place] [address] (Work) [phone] Social History Tobacco Use Types Packs/Day Years Used Date Never Assessed Sex Assigned at Date Recorded Not on file documented as of this encounter Discharge Disposition Disposition Code Departure Means Destination Home or Self Prison documented in this encounter Plan of Treatment Not on filedocumented as of this encounter Visit Diagnoses Not on filedocumented in this encounter Care Teams Cane Splicer Relationship Specialty Start Date End Date Nikki Sheridan, DIRECTOR OF [employer]IDENCE LIFE PCP - General 04/02/09 [facility] [address] [place], [place] [address] documented as of this encounter
--- OUTSIDE RECORDS SUMMARY | 2022-05-29 00:27 | XMS_ITS | Encounter Summary ---
:[address] [facility] Address [address] [place] [address] Care Team Providers Name Role Phone Unavailable Primary Care Provider Unavailable Encounter Details Date Type Department Care Team Description 08/01/1999 Hospital Encounter [facility] Emergency, Emergency Department - [place], Main [place] [address] [place], [place] [id number] Social History Tobacco Use Types Packs/Day Years Used Date Never Assessed Sex Assigned at Date Recorded Not on file documented as of this encounter Discharge Disposition Disposition Code Departure Means Destination Home or Self Care documented in this encounter Plan of Treatment Not on filedocumented as of this encounter Visit Diagnoses Not on filedocumented in this encounter
--- OUTSIDE RECORDS SUMMARY | 2022-05-29 00:27 | XMS_ITS | Encounter Summary ---
:1980 Author Organization [facility] [place] [address] Care Team Providers Name Role Phone Alissa Reynolds Primary Care Provider Encounter Details Date Type Department Care Team Description 10/07/2016 Orders Only Hospitalist Alli Fay MD Flank pain [facility] [place] [address] [place] [address] MEDICINE [phone] [place] [address] (Wo rk) Social History Tobacco Use Types Packs/Day Years Used Date Current Every Day Smoker Cigarettes 1 15 Smokeless Tobacco: Never Used Comments: smoking 0.5ppd-1ppd- pcp presc ibed chantix- has at home when has quit date Sex Assigned at Date Recorded Not on file documented as of this encounter Miscellaneous Notes Addendum Note - Alli Fay MD - 10/07/2016 10:15 PM EST Addended by: ALLI FAY on: 10/07/2016 10:15 PM Modules accepted: Orders documented in this encounter Plan of Treatment Not on filedocumented as of this encounter Visit Diagnoses Diagnosis Flank pain Abdominal pain, unspecified site documented in this encounter Care Teams Welt Pocket Machine Operator Relationship Specialty Start Date End Date Alissa Reynolds PA PCP - General 12/23/12 06/18/20 [address] [place] [address] documented as of this encounter
--- OUTSIDE RECORDS SUMMARY | 2022-05-29 00:27 | XMS_ITS | Encounter Summary ---
:1980 Author Organization [facility] [place] [address] Care Team Providers Name Role Phone Nikki Sheridan APRN Primary Care Provider Reason for Visit Reason Comments Low Back Pain Encounter Details Date Type Department Care Team Description 09/16/2012 Office Visit [facility] at [facility] Mechanical low back Saleem Leon PA [facility] [place] [address] pain (Primary Dx) [facility] Nikki Sheridan APRN [address] [place], [place] [id number] Marycruz Juanis Irving MD [address] [place], [place] [id number] [place] [address] Social History Tobacco Use Types Packs/Day Years Used Date Current Every Day Smoker Cigarettes 1 15 Smokeless Tobacco: Never Used Comments: pcp working with pt to quit Sex Assigned at Date Recorded Not on file documented as of this encounter Progress Notes Rachna Almendarez, PT - 09/16/2012 11:25 AM EST Beck Hernandez [facility] for [facility] physical therapy consult at the requestof Saleem ANDERS. She was seen with the expectations to see if there is anything that can be done from an exercise perspective to ease the pain and improve her ability to function. History of Present Illness: Ms. Hernandez reports approximately 6 months ago she awoke with severe low back and buttock pain with anterior thigh dysesthesias. She notes that while the acute pain has improved it still interferes with her ability to function. Past treatments directed to the low back haveincluded medications, physical therapy, and 3 courses of oral steroids. Unfortunately, none of thesetreatments have provided her with lasting. A recent MRI revealed a degenerative disc changes at L5-S1, a small of right lateral recess disc protrusion at L1-L2 and a disc protrusion at T11-T12. Ms. Hernandez currently complains of low back pain extending from T11-S1, right greater than left. She reports intermittent numbness and tingling in the right buttock and lateral right thigh area and denies weakness. The pain is rated 1/10 at its least and 6/10 at its worst. Symptoms worsen with bending, prolonged sitting, standing, walking, lifting, and driving. Symptoms ease when she changes position and act ivity frequently or takes her medications. Sleep is disturbed, but less so than in the past. She reports limping when the pain is severe. Ms. Hernandez's functional self care goal includes learning effective self-care strategies and to develop a home exercise program. 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 She smokes 1 pack of cigarettes per day, drinks alcohol rarely, and is currently not involved in a structured exercise program. Physical Exam: Ms. Hernandez is a pleasant 32 y.o. female who moves about in the exam room without difficulty and appears comfortable while seated. Sitting posture is poor and standing posture is good. Examination of the low back in the standing position reveals a normal lumbar lordosis and there is not a lateral shift of the lumbar spine on the pelvis. Active range of motion of the lumbar spine is limited to 70?? flexion and 20?? extension. Midline extension and extension combined with right or leftsidebending worsens the pain. Gait is unremarkable. She is able to heel/toe walk and squat fully. Abdominal and trunk extensor strength is 3/5. Slouched sitting lessens the pain while sitting with a fully formed lumbar lordosis worsens the pain. Repeated movement testing of the lumbar spine did seem to suggest a directional preference toward flexion. Physical Therapy Assessment: Ms. Hernandez is a woman with a 6 month history of low back pain which is interfering with her ability to function. The physical exam today is significant for reduced range of motion of the lumbar spine, trunk musculature weakness, and a directional preference toward flexion with movement testing. The history and exam is consistent with mechanical low back pain in the setting of a disc protrusion. I believe that these deficits can improve with physical therapy treatments directed to the low back consisting of instruction in mechanical self-care, trunk musculature strengthening, and self mobilization exercises. Ms. Hernandez has a good rehabilitation potential and I anticipate to meet with her for 2-3 additional visits over the next 4-5 weeks. Treatment Plan: The natural history of disc protrusions and rational for exercise based treatment was reviewed. Ms. Hernandez was given a home exercise program consisting of flexion in lying, pelvic tilt, and bridging in the morning and at bedtime. She was also encouraged to begin a structured cardiovascular exercise program by using her treadmill and elliptical life trainer. In addition, I reviewed self-care strategies such as flexion in lying, flexion in sitting, flexion in standing, posterior pelvic tilt while standing, leaning against the wall, perching, placing the foot on a step, and walking with trekking poles as needed throughout the day to relieve the pain. Along with the prescribed exercises, we discussed the principles of symptom self monitoring and posture correction. She will call with anyquestions, concerns, or if the pain worsens. Ms. Hernandez will [facility] a follow up appointment in 3 weeks time with the hope that she is ready to progress her home exercise progra m. 50 minutes were spent interviewing, assessing, and instructing Beck Hernandez in a home exercise program. documented in this encounter Plan of Treatment Not on filedocumented as of this encounter Visit Diagnoses Diagnosis Mechanical low back pain - Primary Lumbago documented in this encounter Care Teams Certified Genetic Counselor Relationship Specialty Start Date End Date Nikki Sheridan APRN PCP - General 07/29/12 12/22/12 documented as of this encounter
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
--- OUTSIDE RECORDS SUMMARY | 2022-05-29 00:27 | XMS_ITS | Encounter Summary ---
:1980 Author Organization [facility] [place] [address] Care Team Providers Name Role Phone Alissa Reynolds Primary Care Provider Reason for Visit Reason Comments Back Pain Encounter Details Date Type Department Care Team Description 06/05/2013 Office Visit [facility] Mechanical low back [place] Saleem Chanel PA [facility] [place] [address] pain (Primary Dx) [facility] Alissa Reynolds PA [address] [place], [place] [address] Nikki MartinezCARLOTTA [address] [place], [place] [id number] [place], [place] Juanis Irving MD [address] [place], [place] [phone] Social History Tobacco Use Types Packs/Day Years [...] - Inhaled Oxygen Concentration - - Weight - - Height - - Body Mass Index - - documented in this encounter Progress Notes Sophia Moreau Shar, OT - 06/05/2013 9:41 AM EDT Work Readiness Assessment Referring Provider: Saleem ANDERS Primary Care Provider: CHAGO MALIK Reason for Referral: Ms. Mckenna was referred to the Spine Center for assistance in determining her current work capacity. Brief Medical History: Ms. Mckenna reports low back pain dating back about 1.5 years without a specific mechanism of injury. Also notes mid back pain at the level of her bra strap since twisting wrong at work in April 2013. Treatment to date has included medications, physical therapy. States she feels ready to go back to regular duty work but is concerned about missing work during flare ups in the future because during flare ups she needs to be able to stay home and take her medications. States her PCP seems aggravated when she comes in short notice for a note out of work that day. Wonders if Mr. Chanel will be willing to take over writing her out of work notes for flare ups. States previously she was missing 1-2 days per month, typically on Fridays after a long week. Reports cutting back to 2 days/week to rest her back didn't help because of the increased stress with her work situation seemed to make her back worse. Next follow up appointment with Saleem ANDERS is scheduled for 06/19/13. Pain: Ms. Mckenna reports thoracic and low back pain. States the low back pain is becoming less bothersome, the mid back pain is now the bigger problem. Symptoms worsen with sitting and standing. Symptoms ease with stretching, taking medications. 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 Mckenna has been working in her current position in the company for 3.5 years. Work Status: Ms. Mckenna is currently working with the following restrictions: 2 days/week, no lifting, in town driving <30 miles Job Demands: This is a light physical demand level job requiring lifting up to 30 lbs. on an occasional basis by her description. A current job description and task analysis was not provided by the employer. 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 States she hassome autonomy to adjust her schedule and job tasks as needed. Identified At Risk Job Demands: 1. Driving at least 3 hours/day 2. Climbing in and out of the car frequently 3. Helping carry meals on wheels (baskets of food) 4. 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 Lumbar Spine Flexion (0-90) 30 Extension (0-30) 20 Ms. Mckenna is able to perform a full range squat. Gait: Gait is slow in speed. She is able to heel and toe walk. Upper Body Tasks Customer Consultant Strength (lbs): Right Left 62 62 84 65 70 83 Comments: To attain the tolerances for net architect strength, a dynamometer in the second position was used.Ms. Mckenna is right-hand dominant. When compared to well-established normative data, Ms. Chases right net architect strength is slightly below average for females her age while her left net architect strength is within normal limits. Cardiovascular Endurance Ms. Mckenna completed a multistage, submaximal treadmill protocol by walking for 4 minutes, achieving a speed of 2.1 mph on a 10% grade. This is equivalent to 5 METs with a heart rate of 99 bpm. Reason for stop point: back pain due to incline Non Material Handling Tasks Bend Limited by pain to 30 degrees flexion Kneel Demonstrated 1 repetition during material handling. Reports she is able to sustain a kneeling position for several minutes but cannot tolerate leaning forward while kneeling Squat Able to perform a full range squat. Reports she is able to briefly sustain a squatting position Climb Ms. Mckenna reports she is able to ascend and descend a flight of stairs as needed Stand Ms. Mckenna reports 30 minutes Walk Ms. Mckenna reports 60 minutes Sit Ms. Mckenna reports 90 minutes Reach No observed or reported limitations Drive Ms. Mckenna reports 90 minutes, after which she is stiff and sore Do Fine Motor No observed or reported limitations Comments: To attain the above non material handling tolerances Ms. Mckenna was observed during tasks requiring these postures and by self report. Materials Handling Tasks 1-time Maximum Occasional Carry, 25 feet 35 lbs. 25 lbs. 12 to Waist Lift 35 lbs. 25 lbs. Waist to Shoulder Lift 25 lbs. 18 lbs. Shoulder to Overhead Lift 30 lbs. 21 lbs. Push 33 lbs. 23 lbs. Pull 39 lbs. 27 lbs. Comments: To attain the material handling tolerances Ms. Mckenna carried, lifted, pushed and pulled a succession of weights. She demonstrated fair body mechanics. Approximate frequency of lifts or movements are defined by the [place] Department of Labor Employment and Training and Administration. Occasional- Up to 33% of the workday; up to 1 repetition per 30 minutes. 1-time maximum- maximum ability demonstrated in a testing situation Sedentary work defined by the [place] Department of Employment and Training Administration requires lifting no more than 10 lbs. on an occasional basis, with possible lifting of small objects weighing less than 10 lbs. Typical energy requirement -1.5 METS Sedentary-Light work defined by the [place] Department of Employment and Training Administration requires lifting no more than 15 lbs. on an occasional basis or up to 10 lbs. on a more frequent basis. Typical energy requirement -2.0 METS Light work as defined by the [place]. Department of Employment and Training Administration requires lifting no more than 20 lbs. on an occasional basis or up to 10 lbs. on a more frequent basis. Typical energy requirement -2.5 METS Light-Medium work as defined by the [place] Department of Employment and Training Administration requires lifting no more than 35 lbs. on an occasional basis or up to 20 lbs. on a more frequent basis. Typical energy requirement -3.0 METS Medium work as defined by the [place] Department of Employment and Training Administration requires lifting up to a maximum of 50 lbs. on an occasional basis or up to 25 lbs. on a more frequent basis. Typical energy requirement -3.5 METS Medium-Heavy work as defined by the [place]. Department of Employment and Training Administration requires lifting up to a maximum of 75 lbs. on an occasional basis or up to 35 lbs. on a more frequent basis. Typical energy requirement -4.5 METS Heavy work as defined by the [place] Department of Employment and Training Administration requires lifting up to a maximum of 100 lbs. on an occasional basis or up to 50 lbs. on a more frequent basis. Typical energy requirement -6.0 METS Very Heavy work as defined by the [place]. Department of Employment and Training Administration requireslifting over 100 lbs. on an occasional basis or up to 50 lbs. on a more frequent basis. Typical energy requirement - 7.5 to 12 METS Assessment: The above findings were based on an assessment of cardiovascular endurance, physical function, statements made during the evaluation and observations made by the alternative energy engineer. This evaluation suggests Ms. Mckenna is currently functioning at the light physical demand level when considering her ca rdiovascular endurance and ability to lift. In summary, this means Ms. Mckenna is now able to return to her previous life style which included work at the light physical demand level. 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 She is, however, worried about missing work for flare ups in the future and who will write her a doctor's note when she misses work. She did not actively participate in problem solving around how she could manage her flair ups in thefuture to avoid missing work and was not interested in altering her schedule at all (e.g. Every other Wednesday off, 4 day work weeks, slightly shorter shift lengths) to prevent flare ups going forward. States she guesses she will just have to continue to ask for out of work notes when she needs them. She wonders if Blanco ANDERS would be willing to fax her out of work notes if she called for them as needed (I later spoke with Mr. Chanel who said he might consider writing them but would need to see her in person first). She was not interested in meeting again with Rachna Rascon PT to update her self-care strategies and exercises. 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 She is requesting a note for her employer lifting herrestrictions and writing her out of work to attend today's appointment. Encouraged her to speak withBlanco ANDERS at her next follow up appointment about cylindrical mixer prognosis and reassurance during future flare ups. - Consider a referral to behavioral health for Cognitive Behavioral Therapy around how she could react differently to flare ups and better manage chronic symptoms. - Consider also a referral to Occupational Medicine for help navigating this delicate work situation. This report provides guidance to the occupational health team in assessing Ms. Mckenna's work capacity. The result of this testing must be integrated with clinical findings and other observations to derive a final assessment of work capacity. In addition, this report is not intended for use as part ofan application for Social Security Disability Insurance. For this purpose a referral to OccupationalMedicine is required. 65 minutes were spent interviewing and assessing Ms. Mckenna. documented in this encounter Plan of Treatment Not on filedocumented as of this encounter Visit Diagnoses Diagnosis Mechanical low back pain - Primary Lumbago documented in this encounter Care Teams Creative Strategist Relationship Specialty Start Date End Date Alissa Reynolds PA PCP - General 12/23/12 06/18/20 [address] [place] [address] documented as of this encounter
--- OUTSIDE RECORDS SUMMARY | 2022-05-29 00:27 | XMS_ITS | Encounter Summary ---
:[address] [facility] Address [address] [place] [address] Care Team Providers Name Role Phone Nikki Sheridan NP Primary Care Provider Encounter Details Date Type Department Care Team Description 11/22/2012 Results Only [facility] Jose Turner, BELTING AND WEBBING INSPECTOR Laboratory Services - [address] [facility] [address] [address] [place], [place] [id number] [phone] Social History Tobacco Use Types Packs/Day Years Used Date Never Assessed Sex Assigned at Date Recorded Not on file documented as of this encounter Plan of Treatment Not on filedocumented as of this encounter Procedures Procedure Name Priority Date/Time Associated Diagnosis Comme nts PAP TEST- RESULT Routine 11/22/2012 0:00 EST Resu lts for this ONLY procedure are i n the results section. documented in this encounter Results PAP TEST- RESULT ONLY (11/22/2012 0:00 EST) Pathology Report: CYTOPATHOLOGY REPORT [facility] Reports generated via electronic interface contain john ginal data; however they are lacking the format of the original re port. Caution should be taken when reading/interpreting unfo rmatted reports. Name: ? IFTIKHAR OCHOA I ? Accession #: ? [id number] : ? 1980 (Age: 32) ??F ?Collect Date: ? 11/02 Location: ? [facility] ? Receive Date : ? 11/23/2012 Provider: ?ANTOLIN TURNER BELTING AND WEBBING INSPECTOR Copy to: ? Specimen/Source: ? Pap Test, Cervix/Endocervix, ThinPrep Imaging System with manual evaluation Last Menstrual Period: ? Hormonal/Contraceptive Status: ? Depo-Provera Previous Gynecologic Pathology: ? GISEL I: 2006 ? SPECIMEN ADEQUACY ? Satisfactory for Evaluation - transformation zone component present GENERAL CATEGORIZATION ? Negative for Intraepithelial Lesion or Malignan cy ? Document reviewed and electronically signed by: ? HORACE Burrell(ASCP)(IAC) ? Report Date: ??11/30/2012 15:43 End of Report Specimen Performing Organization Address City/State/ZIP Code Phon e Number [facility] [address] [place] [address] SERVICES [facility] [address] [place] [address] documented in this encounter Visit Diagnoses Not on filedocumented in this encounter Care Teams Journeyman Level Acoustic Analyst Relationship Specialty Start Date End Date Nikki Sheridan NP PCP - General 04/02/09 [facility] [address] [place], [place] [phone] documented as of this encounter
--- OUTSIDE RECORDS SUMMARY | 2022-05-29 00:27 | XMS_ITS | Encounter Summary ---
:1980 Author Organization [facility] [place] [address] Care Team Providers Name Role Phone Nikki Sheridan APRN Primary Care Provider Encounter Details Date Type Department Care Team Description 07/27/2012 Abstract Spine Center at [facility] [place] [address] Social History Tobacco Use Types Packs/Day Years Used Date Never Assessed Sex Assigned at Date Recorded Not on file documented as of this encounter Plan of Treatment Not on filedocumented as of this encounter Visit Diagnoses Not on filedocumented in this encounter Care Teams Manager Treasury Relationship Specialty Start Date End Date Nikki Sheridan APRN PCP - General 07/29/12 12/22/12 documented as of this encounter
--- OUTSIDE RECORDS SUMMARY | 2022-05-29 00:27 | XMS_ITS | Encounter Summary ---
:1980 Author Organization [facility] [place] [address] Care Team Providers Name Role Phone Alissa Reynolds Primary Care Provider Encounter Details Date Type Department Care Team Description 12/22/2012 Abstract Spine Center at [facility] [place] [address] Social History Tobacco Use Types Packs/Day Years Used Date Current Every Day Smoker Cigarettes 1 15 Smokeless Tobacco: Never Used Comments: pcp working with pt to quit Sex Assigned at Date Recorded Not on file documented as of this encounter Plan of Treatment Not on filedocumented as of this encounter Visit Diagnoses Not on filedocumented in this encounter Care Teams Leather Scrubber Relationship Specialty Start Date End Date Alissa Reynolds PA PCP - General 12/23/12 06/18/20 [address] [place] [address] documented as of this encounter
--- OUTSIDE RECORDS SUMMARY | 2022-05-29 00:27 | XMS_ITS | Encounter Summary ---
:1980 Author Organization [facility] Address [address] [place] [address] Care Team Providers Name Role Phone Nikki Sheridan FLAG MAKER Primary Care Provider Encounter Details Date Type Department Care Team Description 07/03/2003 Results Only [facility] - Laurie Molina CNM conversion [address] [facility] [address] [place] [address] [place], [place] [address] [phone] Social History Tobacco Use Types Packs/Day Years Used Date Never Assessed Sex Assigned at Date Recorded Not on file documented as of this encounter Plan of Treatment Not on filedocumented as of this encounter Procedures Procedure Name Priority Date/Time Associated Diagnosis Comme nts CYTOPATHOLOGY Routine 07/03/2003 0:00 EDT Results for this procedure are i n the results section . documented in this encounter Results CYTOPATHOLOGY (07/03/2003 0:00 EDT) Pathology Report: CYTOPATHOLOGY REPORT [facility] Reports generated via electronic interface contain john ginal data; however they are lacking the format of the original re port. Caution should be taken when reading/interpreting unfo rmatted reports. Name: ? IFTIKHAR OCHOA I ? Accession #: ? [id number] : ? 1980 (Age: 23) ??F ?Collect Date: ? 12/2002 Location: ? [facility] ? Receive Date : ? 07/05/2003 Provider: ?LAURIE ROGERS CNM Copy to: ? Specimen/Source: ?ThinPrep Pap Test, Cervix/ Endocervix Last Menstrual Period: ? 05/09/03 Menstrual/ Status: ? SPECIMEN ADEQUACY ? Satisfactory for Evaluation - transformation zone component present GENERAL CATEGORIZATION ? Negative for Intraepithelial Lesion or Malignan cy INTERPRETATION ? Shift in rika present suggestive of bacterial vaginosis. ? Document reviewed and electronically signed by: ? HORACE Mcmahon(ASCP) ? Report Date: ??07/09/2003 13:38 End of Report Specimen Performing Organization Address City/State/ZIP Code Phon e Number [facility] [address] [place] [address] SERVICES [facility] [address] [place] [address] documented in this encounter Visit Diagnoses Not on filedocumented in this encounter Care Teams Coordinator Of Genetic Services Relationship Specialty Start Date End Date Nikki Sheridan NP PCP - General 04/02/09 [facility] [address] [place] [address] documented as of this encounter
--- OUTSIDE RECORDS SUMMARY | 2022-05-29 00:27 | XMS_ITS | Encounter Summary ---
:1980 Author Organization [facility] [place] [address] Care Team Providers Name Role Phone Alissa Reynolds Primary Care Provider Encounter Details Date Type Department Care Team Description 06/15/2019 Ancillary Procedure Radiology at Rachel Hernandez MD [address] [facility] [address] [facility] [place] [address] [place] [address] [phone] (Wo rk) Social History Tobacco Use Types [...] Associated Diagnosis Comme nts FILM LIBRARY Routine 06/15/2019 12:00 AM Results for this STORAGE ONLY MR EDT procedure ar e in SPINE the results section. documented in this encounter Results Film Library- Storage Only MR Spine (06/15/2019 12:00 AM EDT) Specimen (Source) Anatomical Location Collection Method / Collectio n Time Received Time / Laterality Volume Narrative ROSSANA - 06/28/2019 3:16 PM EDT This exam is auto-finalizing. It's purpo se is for storage only. Rachel Xiao MD G FILM LIBRARY ORDERABLES Performing Organization Address City/State/ZIP Code Phon e Number [place], [place] documented in this encounter Visit Diagnoses Not on filedocumented in this encounter Care Teams Soft Tile Setter Relationship Specialty Start Date End Date Alissa Reynolds PA PCP - General 12/23/12 06/18/20 [address] [place] [address] documented as of this encounter
--- OUTSIDE RECORDS SUMMARY | 2022-05-29 00:27 | XMS_ITS | Encounter Summary ---
:1980 Author Organization [facility] [place] [address] Care Team Providers Name Role Phone Alissa Reynolds Primary Care Provider Reason for Visit Reason Comments Follow-up Encounter Details Date Type Department Care Team Description 02/01/2017 Office Visit Dermatology at [facility] Willy Maya MD Spider angioma [address] [place] [address] [place] [address] [phone] (Wo rk) Social History Tobacco Use Types Packs/Day Years Used Date Current Every Day Smoker Cigarettes 1 15 Smokeless Tobacco: Never Used Comments: smoking 0.5ppd-1ppd- pcp presc ibed chantix- has at home when has quit date Sex Assigned at Date Recorded Not on file documented as of this encounter Progress Notes Willy Maya MD - 02/01/2017 3:30 PM EDT PROBLEM: Followup spider angioma, central forehead, 1 at base of neck. Beck follows up and states that the central forehead site did not respond well and had a fair amount of crusting and scabbing following her last visit. She does not want that treated again. The hemangioma is still present there. However, she had some lightening at the 1 at the upper presternal chest, the base of her neck, and she would like to see if this cannot be treated again. PHYSICAL EXAMINATION: Again, reveals a spider angioma in this location. A/P: 1. Spider angioma. a. Today, the upper presternal chest at base of neck site was anesthetized and then using a setting of 2.5 rojas and an epilating needle, superficially the telangiectasias were epilated transcutaneously. b. Patient tolerated well. c. Return to clinic p.r.n. Note: Would recommend formal consultation at [facility] if epilation therapy does not bring adequate treatment of her angiomas. CC: CHAGO Rain documented in this encounter Plan of Treatment Not on filedocumented as of this encounter Visit Diagnoses Diagnosis Spider angioma Nevus, non-neoplastic documented in this encounter Care Teams Digital Strategy Director Relationship Specialty Start Date End Date Alissa Reynolds PA PCP - General 12/23/12 06/18/20 [address] [place] [address] documented as of this encounter
--- NOTE | 2022-05-29 12:45 | DI.MAMMO_ITS ---
Exam(s) MAMMO SCREENING EXAM: MAMMO SCREENING CLINICAL HISTORY: HEALTH EXAM Z00.8, SCREENING FOR BREAST CANCER TECHNIQUE: Bilateral full field digital CC and MLO mammographic images were obtained with 3D tomosyn thesis and utilizing computer aided detection (CAD). COMPARISON: None. FINDINGS: Masses/Architectural Distortion: None seen. Microcalcifications: No suspicious pleomorphic-type are seen. Skin Thickening/Nipple Retraction: None. IMPRESSION: 1. No significant interval change with no specific features of malignancy noted. 2. Unless there is more urgent need, screening mammography is recommended, as per [employer] [place] guidelines. BI-RADS Category 1 - Negative Breast Density - Category B - Scattered areas of fibroglandular density Breast density category C or D implies that the patient has dense breast tissue. Dense breast tissue is very common and is not abnormal but dense breast tissue can make it harder to find cancer on a ma mmogram. Also, dense breast tissue may increase their breast cancer risk. This information about the result of the mammogram report was provided to the patient to raise their awareness. Use this report when you speak with the patient about their risks for breast cancer, which includes their family hist ory. At that time, you may recommend for more screening tests (Ultrasound or MRI) as they might be us eful based on their risk. A negative radiographic report should not delay biopsy if a dominant or clinically suspicious mass is present. Up to ten percent of cancers are not identified on mammography. A negative report may reinforce clinical impression. Adenosis and dense breasts may obscure an underlying neoplasm. False positive reports average 6 to 10%. Patient will receive a letter notifying them of these results.
== END ==
PROVIDERS: PCP Physician Assistant Medical; Visit Provider Physician Assistant Medical
DX: Z12.31 Encounter for screening mammogram for malignant neoplasm of breast (principal); Z00.8 Encounter for other general examination; R92.8 Other abnormal and inconclusive findings on diagnostic imaging of breast
CPT/HCPCS: 77063; 77067

== ENCOUNTER 2022-07-27 16:04 | Outpatient (REF) | payer OTHER, SELFPAY ==
[2022-07-27 18:06] LABS: Absolute Basophil Count 0.07 10^3/uL (0.0-0.2); Absolute Eosinophil Count 0.34 10^3/uL (0.0-0.7); Absolute Monocyte Count 0.82 10^3/uL (0.1-0.8); Basophils % 0.4; Eosinophils % 2.1; HCT 43.5 % (36.0-46.0); HGB 14.3 g/dL (11.2-15.7); Immature Grans % 0.6; Lymphocytes % 20.1; MCH 29.9 pg (27.0-33.0); MCHC 32.9 % (32.0-36.0); MCV 91 fL (80-95); MPV 9.7 fL (8.0-11.0); Neutrophils % 71.8; Platelet Count 483 10^3/uL (130-400); RBC 4.78 10^6/uL (3.93-5.22); RDW 15.2 % (11.7-14.6); RDW-SD 50.4 fL
[2022-07-27 18:16] LABS: Absolute Lymphocyte Count 3.28 10^3/uL (1.2-3.4)
[2022-07-27 18:25] LABS: ALT 43 U/L (14-59); AST 26 U/L (15-37); Albumin 3.7 g/dL (3.4-5.0); Alkaline Phosphatase 74 U/L (46-116); BUN 14 mg/dL (7-18); Bilirubin, Total 0.6 mg/dL (0.2-1.0); CREATININE 0.8 mg/dL (0.55-1.02); Calcium 9.1 mg/dL (8.5-10.1); Calculated LDL 109 mg/dL (<100); Chloride 104 mmol/L (98-107); Cholesterol 168 mg/dL (<200); Estimated GFR 95.46 (mL/min/1.73m2); Glucose 89 mg/dL (74-106); HDL Cholesterol 28 mg/dL (40-60); Potassium 4.1 mmol/L (3.5-5.1); Sodium 137 mmol/L (136-145); TSH (W/Ref FT4) 1.59 uIU/mL (0.36-3.74); Total Protein 7.8 g/dL (6.4-8.2); Triglyceride 157 mg/dL (<150)
[2022-07-27 18:35] LABS: Hemoglobin A1C 5.9 % (<5.7)
[2022-07-29 10:04] LABS: Syphilis Serology (RPR) Negative (Negative)
[2022-07-29 10:10] LABS: HIV-1/2 Ag & Ab Screen Negative (Negative)
[2022-07-29 10:31] LABS: Hepatitis C Ab w Rflx HCV PCR Negative (Negative)
== END 2022-07-27 16:05 | disposition home or self-care (01) ==
LOC: NCHCN 16:04
PROVIDERS: PCP Physician Assistant Medical; Visit Provider Physician Assistant Medical
DX: K59.00 Constipation, unspecified (principal); R73.03 Prediabetes; I10 Essential (primary) hypertension; K76.0 Fatty (change of) liver, not elsewhere classified; E78.5 Hyperlipidemia, unspecified; Z11.3 Encounter for screening for infections with a predominantly sexual mode of transmission
CPT/HCPCS: 80053; 80061; 86803; 87389; 83036; 84443; 85025; 86592

== ENCOUNTER 2023-05-11 16:35 | Outpatient (REF) | payer OTHER, SELFPAY ==
[2023-05-11 19:48] LABS: ALT 37 U/L (14-59); AST 19 U/L (15-37); Albumin 3.7 g/dL (3.4-5.0); Alkaline Phosphatase 93 U/L (46-116); BUN 11 mg/dL (7-18); Bilirubin, Total 0.3 mg/dL (0.2-1.0); CREATININE 0.9 mg/dL (0.55-1.02); Calcium 8.7 mg/dL (8.5-10.1); Calculated LDL 166 mg/dL (<100); Chloride 105 mmol/L (98-107); Cholesterol 231 mg/dL (<200); Estimated GFR 82.37 (mL/min/1.73m2); Glucose 111 mg/dL (74-106); HDL Cholesterol 42 mg/dL (40-60); Potassium 3.9 mmol/L (3.5-5.1); Sodium 141 mmol/L (136-145); Total Protein 6.9 g/dL (6.4-8.2); Triglyceride 116 mg/dL (<150)
[2023-05-11 22:05] LABS: Hemoglobin A1C 5.6 % (<5.7)
== END 2023-05-11 16:36 | disposition home or self-care (01) ==
LOC: NCHCN 16:35
PROVIDERS: PCP Physician Assistant Medical; Visit Provider Physician Assistant Medical
DX: I10 Essential (primary) hypertension (principal); R73.03 Prediabetes; K76.0 Fatty (change of) liver, not elsewhere classified
CPT/HCPCS: 80053; 80061; 83036

== ENCOUNTER 2023-08-13 17:10 | Outpatient (REF) | payer OTHER, SELFPAY ==
[2023-08-13 15:38] LABS: *AMPHETAMINES SCREEN URINE Negative (Negative); *BARBITURATES SCREEN URINE Negative (Negative); *BENZODIAZEPINES SCREEN URINE Negative (Negative); Cannabinoids THC Negative (Negative); Cocaine Screen,Urine Negative (Negative); METHADONE URINE SCREEN Negative (Negative); OPIATES URINE SCREEN Positive (Negative)
[2023-08-13 15:39] LABS: Calculated LDL 102 mg/dL (<100); Cholesterol 168 mg/dL (<200); HDL Cholesterol 38 mg/dL (40-60); TSH (W/Ref FT4) 2.04 uIU/mL (0.36-3.74); Triglyceride 144 mg/dL (<150)
[2023-08-13 15:39] LABS: Tricyclic Antidepressants Negative (Negative)
[2023-08-14 22:27] LABS: Chlamydia Result Negative (Negative); GC Result Negative (Negative)
== END 2023-08-13 17:11 | disposition home or self-care (01) ==
LOC: NCHCN 17:10
PROVIDERS: PCP Physician Assistant Medical; Visit Provider Physician Assistant Medical
DX: Z51.81 Encounter for therapeutic drug level monitoring (principal); N92.6 Irregular menstruation, unspecified; E78.5 Hyperlipidemia, unspecified
CPT/HCPCS: 80061; 80307; 87491; 87591; 84443

== ENCOUNTER 2024-06-13 14:56 | Outpatient (REF) | payer OTHER, SELFPAY ==
--- OUTSIDE RECORDS SUMMARY | 2024-06-13 14:58 | XMS_ITS | Encounter Summary ---
Author Organization [facility] Address [address] [place] [address] Care Team Providers Care Burning Machine Operator Name Role Phone Nikki Sheridan NP Primary Care Provider [phone] Encounter Details Date Type Department Care Team (Late st Contact Info) Description 11/22/2012 Results Only [facility] Laboratory Services - [facility] ([facility] [place] [facility]) [address] [place], [place] [address] Shreya Turner, [facility] [address] [place] [phone] Social History Tobacco Use Types Packs/Day Years Used Date Smoking Tobacco: Never Assessed Sex and Gender Information Value Date Recorded Sex Assigned at Not on file Gender Identity Not on file Sexual Orientation Not on file documented as of this encounter Plan of Treatment Not on file documented as of this encounter Procedures Procedure Name Priority Date/Time Associated Diagnosis Comments PAP TEST- RESULT ONLY Routine 11/22/2012 0:00 EST documented in this encounter Results * PAP TEST- RESULT ONLY (11/22/2012 0:00 EST) Pathology Report: CYTOPATHOLOGY REPORT Reports generated via electronic interface contain original data; however they are lacking the format of the original report. Caution should be taken when reading/interpreti ng unformatted reports. Name: ? IFTIKHAR OCHOA I ? Accession #: ? [id number] : ? 1980 (Age: 32) ??F ?Collect Date: ? 11/22/2012 Location: ? [facility] ? Receive Date: ? 11/23/2012 Provider: ?SHREYA TURNER MUSHROOM SORTER GRADER Copy to: ? Specimen/Source: ?Pap Test, Cervix/Endocervix, ThinPrep Imaging System with manual evaluation Last Menstrual Period: ? Hormonal/Contracep tive Status: ? Depo-Provera Previous Gynecologic Pathology: ? GISEL I: 2005 ? SPECIMEN ADEQUACY ? Satisfactory for Evaluation - transformation zone component present GENERAL CATEGORIZATION ? Negative for Intraepithelial Lesion or Malignancy ? Document reviewed and electronically signed by: ? Rian Rodriguez, HORACE(ASCP)(IAC) ? Report Date: ??11/30/2012 15:43 End of Report [facility] 11/22/2012 11/23/2012 Shreya Turner MUSHROOM SORTER GRADER PATHOLOGY ORDERABLES [facility] [address] [place] [address] documented in this encounter Visit Diagnoses Not on filedocumented in this encounter Care Teams Burning Machine Operator Relationship Specialty Start Date End Date Nikki Sheridan NP [facility] [address] [place] [address] PCP - General 04/02/09 documented as of this encounter
--- OUTSIDE RECORDS SUMMARY | 2024-06-13 14:58 | XMS_ITS | Encounter Summary ---
Author Organization [facility] Address [address] [place] [address] Care Team Providers Care Packer And Carry Out Name Role Phone Nikki Sheridan NP Primary Care Provider [phone] Encounter Details Date Type Department Care Team (Late st Contact Info) Description 07/03/2003 Results Only [facility] - Maple conversion [address] [place] [address] Laurie Guadarrama, [facility] [address] [place], [place] [address] Social History Tobacco Use Types Packs/Day Years Used Date Smoking Tobacco: Never Assessed Sex and Gender Information Value Date Recorded Sex Assigned at Not on file Gender Identity Not on file Sexual Orientation Not on file documented as of this encounter Plan of Treatment Not on file documented as of this encounter Procedures Procedure Name Priority Date/Time Associated Diagnosis Comments CYTOPATHOLOGY Routine 07/03/2003 0:00 EDT documented in this encounter Results * CYTOPATHOLOGY (07/03/2003 0:00 EDT) Pathology Report: CYTOPATHOLOGY REPORT Reports generated via electronic interface contain original data; however they are lacking the format of the original report. Caution should be taken when reading/interpreti ng unformatted reports. Name: ? IFTIKHAR OCHOA I ? Accession #: ? [id number] : ? 1980 (Age: 23) ??F ?Collect Date: ? 07/03/2003 Location: ? [facility] ? Receive Date: ? 07/05/2003 Provider: ?ANEA MELLNG CNM Copy to: ? Specimen/Source: ?ThinPrep Pap Test, Cervix/Endocervix Last Menstrual Period: ? 05/09/03 Menstrual/Pregnanc y Status: ? SPECIMEN ADEQUACY ? Satisfactory for Evaluation - transformation zone component present GENERAL CATEGORIZATION ? Negative for Intraepithelial Lesion or Malignancy INTERPRETATION ? Shift in rika present suggestive of bacterial vaginosis. ? Document reviewed and electronically signed by: ? Hayden Murillo, HORACE(ASCP) ? Report Date: ??07/09/2003 13:38 End of Report [facility] 07/03/2003 07/05/2003 Anesara Guadarrama CNM PATHOLOGY ORDERABLES Performing Organization Address City/State/[facility] Co de Phone Number [facility] [address] [place] [address] documented in this encounter Visit Diagnoses Not on filedocumented in this encounter Care Teams Packer And Carry Out Relationship Specialty Start Date End Date Nikki Sheridan NP [facility] [address] [place], [place] [address] PCP - General 04/02/09 documented as of this encounter
--- OUTSIDE RECORDS SUMMARY | 2024-06-13 14:58 | XMS_ITS | Encounter Summary ---
Author Organization [facility] Address [address] [place] [address] Care Team Providers Care African History Professor Name Role Phone ConverseNikki dennison Danilo RELIGION INSTRUCTOR Primary Care Provider [phone] Encounter Details Date Type Department Care Team (Late st Contact Info) Description 10/02/2010 Results Only [facility] Laboratory Services - [facility] ([facility] [place] [address] [place] [address] Jazmin Shannon MD [address] [place] [address] [place] [address] Social History Tobacco Use Types Packs/Day Years Used Date Smoking Tobacco: Never Assessed Sex and Gender Information Value Date Recorded Sex Assigned at Not on file Gender Identity Not on file Sexual Orientation Not on file documented as of this encounter Plan of Treatment Not on file documented as of this encounter Procedures Procedure Name Priority Date/Time Associated Diagnosis Comments CYTOPATHOLOGY Routine 10/02/2010 0:00 EST documented in this encounter Results * CYTOPATHOLOGY (10/02/2010 0:00 EST) Pathology Report: CYTOPATHOLOGY REPORT ? Reports generated via electronic interface contain original data; ? however they are lacking the format of the original report. ? Caution should be taken when reading/interpreti ng unformatted reports. ? Name: ? IFTIKHAR OCHOA I ? Accession #: ? [id number] ? : ? 1980 (Age: 30) ??F ?Collect Date: ? 10/02/2010 ? Location: ? [facility] ? Receive Date: ? 10/03/2010 ? Provider: ?JAZMIN SHANNON MD ? Copy to: ? Specimen/Source: ?Pap Test, Cervix/Endocervix, ThinPrep Imaging System ? with manual evaluation ? Last Menstrual Period: ? 11/17/10 ? Hormonal/Contracep tive Status: ? Intrauterine device: mirena ? Previous Gynecologic Pathology: ? GISEL I: 2006 ? Other: ? Additional clinical information: paps WNL since 10/06, 11/07, 11/08 ? SPECIMEN ADEQUACY ? Satisfactory for Evaluation ? - transformation zone component present ? GENERAL CATEGORIZATION ? Negative for Intraepithelial Lesion or Malignancy ? INTERPRETATION ? Shift in rika present suggestive of bacterial vaginosis. ? Document reviewed and electronically signed by: ? Tiffany Arcola, CT(ASCP) ? Report Date: ??10/09/2010 10:27 ? End of Report ? [facility] 10/02/2010 10/03/2010 Jazmin Shannon MD PATHOLOGY ORDERABLES [facility] [address] [place] [address] documented in this encounter Visit Diagnoses Not on filedocumented in this encounter Care Teams African History Professor Relationship Specialty Start Date End Date Nikki Sheridan, RELIGION INSTRUCTOR [facility] [address] [place] [address] PCP - General 04/02/09 documented as of this encounter
--- OUTSIDE RECORDS SUMMARY | 2024-06-13 14:58 | XMS_ITS | Encounter Summary ---
Author Organization [facility] Address [address] [place] [address] Care Team Providers Care Mushroom Packer Name Role Phone Nikki Sheridan NP Primary Care Provider [phone] Encounter Details Date Type Department Care Team (Late st Contact Info) Description 04/21/2022 Lab Requisition [facility] Pathology & Laboratory Medicine - [facility] [address] [place], [place] [address] Outr Resulting Lab, Provider Social History Tobacco Use Types Packs/Day Years Used Date Smoking Tobacco: Never Assessed Sex and Gender Information Value Date Recorded Sex Assigned at Not on file Gender Identity Not on file Sexual Orientation Not on file documented as of this encounter Plan of Treatment Not on file documented as of this encounter Procedures Procedure Name Priority Date/Time Associated Diagnosis Comments CHLAMYDIA/N. GONORRHOEAE AMPLIFIED NUCLEIC ACID Routine 04/21/2022 8:00 EDT documented in this encounter Results * CHLAMYDIA/N. GONORRHOEAE AMPLIFIED RNA (04/21/2022 8:00 EDT) Neisseria gonorrhoeae Result Negative Negative 04/23/2022 8:41 EDT [facility] Chlamydia trachomatis Result Negative Negative 04/23/2022 8:41 EDT [facility] Swab ENTIRE ENDOCERVIX / Unknown 04/21/2022 8:00 EDT 04/21/2022 22:05 EDT Provider Outr Resulting Lab MICROBIOLOGY - GENERAL ORDERABLES [facility] [address] [place] [address] documented in this encounter Visit Diagnoses Not on filedocumented in this encounter Care Teams Mushroom Packer Relationship Specialty Start Date End Date Nikki Sheridan NP [facility] [address] [place], [place] [id number] PCP - General 04/02/09 documented as of this encounter
--- OUTSIDE RECORDS SUMMARY | 2024-06-13 14:58 | XMS_ITS | Encounter Summary ---
Author Organization [facility] Address [address] [place] [address] Care Team Providers Care Soda Dispenser Name Role Phone Nikki Norris NP Primary Care Provider [phone] Encounter Details Date Type Department Care Team (Late st Contact Info) Description 11/06/2011 Results Only [facility] Laboratory Services - [facility] ([facility]) [address] [place], [place] [address] Shreya Turner, [facility] [address] [place] [phone] Social History Tobacco Use Types Packs/Day Years [...] Diagnosis Comments PAP TEST- RESULT ONLY Routine 11/06/2011 0:00 EST documented in this encounter Results * PAP TEST- RESULT ONLY (11/06/2011 0:00 EST) Pathology Report: CYTOPATHOLOGY REPORT Reports generated via electronic interface contain original data; however they are lacking the format of the original report. Caution should be taken when reading/interpreti ng unformatted reports. Name: ? IFTIKHAR OCHOA I ? Accession #: ? [id number] : ? 1980 (Age: 31) ??F ?Collect Date: ? 11/06/2011 Location: ? [facility] ? Receive Date: ? 11/09/2011 Provider: ?SHREYA TURNER FILTERING MACHINE TENDER Copy to: ?NIKKI NORRIS WRAPAROUND FACILITATOR ? Specimen/Source: ?Pap Test, Cervix/Endocervix, ThinPrep Imaging System with manual evaluation Last Menstrual Period: ? Hormonal/Contracep tive Status: ? Depo-Provera Previous Gynecologic Pathology: ? GISEL I: 2006 ? SPECIMEN ADEQUACY ? Satisfactory for Evaluation - transformation zone component present GENERAL CATEGORIZATION ? Negative for Intraepithelial Lesion or Malignancy INTERPRETATION ? Reactive cellular changes associated with inflammation present (includes repair). ? Document reviewed and electronically signed by: ? MIR LICONA MD ? Report Date: ??11/12/2011 16:02 End of Report [facility] 11/06/2011 11/09/2011 Shreya Turner FILTERING MACHINE TENDER PATHOLOGY ORDERABLES [facility] [address] [place] [address] documented in this encounter Visit Diagnoses Not on filedocumented in this encounter Care Teams Soda Dispenser Relationship Specialty Start Date End Date Nikki Norris NP [facility] [address] [place] [address] PCP - General 04/02/09 documented as of this encounter
--- OUTSIDE RECORDS SUMMARY | 2024-06-13 14:58 | XMS_ITS | Encounter Summary ---
Author Organization [facility] Address [address] [place] [address] Care Team Providers Care Spoon Maker Name Role Phone Nikki Sheridan CLERICAL AND ADMINISTRATIVE WORKERS Primary Care Provider [phone] Encounter Details Date Type Department Care Team (Late st Contact Info) Description 09/12/2014 Results Only [facility] Laboratory Services - [facility] [place] [address] [place] [address] Momo Morillo MD [address] [place] [phone] Social History Tobacco Use Types Packs/Day Years Used Date Smoking Tobacco: Never Assessed Sex and Gender Information Value Date Recorded Sex Assigned at Not on file Gender Identity Not on file Sexual Orientation Not on file documented as of this encounter Plan of Treatment Not on file documented as of this encounter Procedures Procedure Name Priority Date/Time Associated Diagnosis Comments SURGICAL PATHOLOGY Routine 09/12/2014 20 :33 EST documented in this encounter Results * SURGICAL PATHOLOGY (09/12/2014 20:33 EST) Pathology Report: SURGICAL PATHOLOGY REPORT Reports generated via electronic interface contain original data; however they are lacking the format of the original report. Caution should be taken when reading/interpret ing unformatted reports. Name: ? IFTIKHAR LEAVITT I ? Accession #: ? [id number] ? : ? 1980 (Age: 34) ??F ? Collect Date: ? 09/12/2014 ? Location: ? [facility] ? Receive Date: ? 09/13/2014 ? Provider: MOMO MORILLO MD Copy to: ? Final Pathologic Diagnosis: GALLBLADDER, CHOLECYSTECTOMY: - ??Chronic cholecystitis with focal active erosive cholecystitis. - ??Cholelithiasis. - ??Single reactive lymph node. Document reviewed and electronically signed by: JANET SHANKAR MD Report ??Date: 09/17/2014 17:24 By the signature above, the attending physician certifies that he/she has personally conducted a gross and/or microscopic examination of the described specimens and rendered or confirmed the above diagnosis. Specimen(s) Received: Gallbladder Clinical History: Acute cholecystitis w/ cholelithiasis w/ hydrops Gross Description: ? Received in formalin labelled with proper patient identification (initials H, K) and gallbladder is an intact gallbladder (6.5 x 3.0 x 2.0 cm) with an attached segment of cystic duct (0.2 cm in length x 0.1 cm in diameter). A cystic duct lymph node (0.5 cm in greatest dimension) is present. ? The serosa is dozier-pink and smooth. The mucosa is dozier-white, denuded and the wall ranges from 0.1-0.5 cm in thickness. The cystic duct lumen is patent. The cystic duct margin is inked black. A single 3.5 cm in greatest dimension dozier-green cholelith is present. ? Two health and safety representative sections, the inked en face cystic duct margin, and the cystic duct lymph node are bisected and submitted in cassette 1. Dr. Norris 09/14/2014 02:56 PM End of Report [facility] 09/12/2014 20:3 3 EST 09/13/2014 20:33 EST Momo Morillo MD PATHOLOGY ORDERABLE S [facility] [address] [place] [address] documented in this encounter Visit Diagnoses Not on filedocumented in this encounter Care Teams Spoon Maker Relationship Specialty Start Date End Date Nikki Sheridan, CLERICAL AND ADMINISTRATIVE WORKERS [facility] [address] [place] [address] PCP - General 04/02/09 documented as of this encounter
--- OUTSIDE RECORDS SUMMARY | 2024-06-13 14:58 | XMS_ITS | Encounter Summary ---
Author Organization [facility] Address [address] [place] [address] Care Team Providers Care Asset Protection Associate Name Role Phone Nikki Sheridan NP Primary Care Provider [phone] Encounter Details Date Type Department Care Team (Late st Contact Info) Description 09/28/2008 Before PRISM Converted Visit (Maple) [facility] - Maple conversion [address] [place] [address] Shreya Turner, [facility] [address] [place] [phone] Social History Tobacco Use Types Packs/Day Years Used Date Smoking Tobacco: Never Assessed Sex and Gender Information Value Date Recorded Sex Assigned at Not on file Gender Identity Not on file Sexual Orientation Not on file documented as of this encounter Plan of Treatment Not on file documented as of this encounter Procedures Procedure Name Priority Date/Time Associated Diagnosis Comments CYTOPATHOLOGY Routine 09/28/2008 0:00 EST documented in this encounter Results * CYTOPATHOLOGY (09/28/2008 0:00 EST) Pathology Report: CYTOPATHOLOGY REPORT ? Reports generated via electronic interface contain original data; ? however they are lacking the format of the original report. ? Caution should be taken when reading/interpreti ng unformatted reports. ? Name: ? IFTIKHAR OCHOA I ? Accession #: ? [id number] ? : ? 1980 (Age: 28) ??F ?Collect Date: ? 09/28/2008 ? Location: ? [facility] ? Receive Date: ? 10/02/2008 ? Provider: ?SHREYA SAMANTA POSITION CLASSIFIER ? Copy to: ? Specimen/Source: ?Pap Test, Cervix/Endocervix, ThinPrep Imaging System ? with manual evaluation ? Last Menstrual Period: ? Hormonal/Contracep tive Status: ? Intrauterine device: Mirena ? Previous Gynecologic Pathology: ? GISEL I: 5/06 ? Other: ? HPVA - HPV testing requested if ASC-US on the current ThinPrep Pap test. ? SPECIMEN ADEQUACY ? Satisfactory for Evaluation ? - transformation zone component present ? GENERAL CATEGORIZATION ? Negative for Intraepithelial Lesion or Malignancy ? Document reviewed and electronically signed by: ? Nikki Mullen SCT(ASCP) ? Report Date: ??10/03/2008 13:34 ? End of Report ? [facility] 09/28/2008 10/02/2008 Shreya Turner POSITION CLASSIFIER PATHOLOGY ORDERABLES [facility] [address] [place] [address] documented in this encounter Visit Diagnoses Not on filedocumented in this encounter Care Teams Asset Protection Associate Relationship Specialty Start Date End Date Nikki Sheridan NP [facility] [address] [place] [address] PCP - General 04/02/09 documented as of this encounter
--- OUTSIDE RECORDS SUMMARY | 2024-06-13 14:58 | XMS_ITS | Encounter Summary ---
Author Organization [facility] Address [address] [place] [address] Care Team Providers Care Fighting Vehicle Systems Maintainer Name Role Phone Nikki Sheridan NP Primary Care Provider [phone] Encounter Details Date Type Department Care Team (Latest Contact Info) Description 04/23/2022 Lab Requisition [facility] Pathology & Laboratory Medicine - [facility] [address] [place] [address] Alissa Reynolds PA-C [address] [place] [phone] Encounter for gynecological examination (general) (routine) without abnormal findings Social History Tobacco Use Types Packs/Day Years Used Date Smoking Tobacco: Never Assessed Sex and Gender Information Value Date Recorded Sex Assigned at Not on file Gender Identity Not on file Sexual Orientation Not on file documented as of this encounter Plan of Treatment Not on file documented as of this encounter Procedures Procedure Name Priority Date/Time Associated Diagnosis Comments PAP TEST Today 04/21/2022 8:00 EDT Encounter for gynecological examination (general) (routine) without abnormal findings HPV DNA DETECTION WITH GENOTYPING, PCR Today 04/21/2022 8:00 EDT Encounter for gynecological examination (general) (routine) without abnormal findings documented in this encounter Results * HUMAN PAPILLOMAVIRUS (HPV) DETECTION-HIGH RISK TYPES (04/21/2022 8:00 EDT) HPV other High Risk types, PCR Negative Negative 04/29/2022 19:[address] [facility] Comment:No E6 or E7 mRNA is detected from HPV types 16,18,31,33,35,39,45,51,52,56,58,59,66, and 68 by roll icer machine mediated amplification. Papanicolaou smear specimen (specimen) CERVIX UTERI STRUCTURE / Unknown 04/21/2022 8:00 EDT 04/27/2022 13:47 EDT Alissa Reynolds PA-C MICROBIOLOGY - G ENERAL ORDERABLES [facility] [address] [place] [address] * PAP TEST (04/21/2022 8:00 EDT) Specimens A. Cervix and/or Endocervix , ThinPrep Imaging System with Manual Evaluation 04/29/2022 19:22 [facility] Specimen Adequacy Satisfactory for Evaluation - transformation zone component absent 04/29/2022 19:22 [facility] General Categorization Negative for intraepithelial lesion or malignancy 04/29/2022 19:22 [facility] Attestation . 04/29/2022 19:22 [facility] at 1922 Clinical History SEE BELOW 04/29/20 19:22 [facility] HPV The result for the Human Papillomavirus (HPV) Detection-High Risk Types is Negative. No E6 or E7 mRNA is detected from HPV types 16,18,31,33,35,39 ,45,51,52,56,58,5 9,66, and 68 by roll icer machine mediated amplification.Rylee ting was performed on specimen [id number] and was resulted on 04/29/2022 1915 EDT by WALTER, LAB INSTRUMENT RESULTS IN 04/29/2022 19:[address] [facility] Performing Lab [facility] 04/29/2022 19:[address] [facility] Scanned Images 04/29/2022 19:[address] [facility] Papanicolaou smear specimen (specimen) CERVIX UTERI STRUCTURE / Unknown 04/21/2022 8:00 EDT 04/23/2022 12:14 EDT Alissa Reynolds PA-C PATHOLOGY ORDERA BLES [facility] [address] [place] [address] documented in this encounter Visit Diagnoses Diagnosis Encounter for gynecological examination (general) (routine) without abnormal findings documented in this encounter Care Teams Fighting Vehicle Systems Maintainer Relationship Specialty Start Date End Date Nikki Sheridan NP [facility] [address] [place] [address] PCP - General 04/02/09 documented as of this encounter
--- OUTSIDE RECORDS SUMMARY | 2024-06-13 14:58 | XMS_ITS | Encounter Summary ---
Author Organization [facility] Address [address] [place] [address] Care Team Providers Care Unionmelt Operator Name Role Phone Nikki Sheridan NP Primary Care Provider [phone] Encounter Details Date Type Department Care Team (Late st Contact Info) Description 07/28/2022 Lab Requisition [facility] Pathology & Laboratory Medicine - [facility] [address] [place], [place] [address] Outr Resulting Lab, Provider Social History Tobacco [...] Procedure Name Priority Date/Time Associated Diagnosis Comments SYPHILIS SEROLOGY Routine 07/27/2022 8:50 EDT HEPATITIS C AB W REFLEX TO HCV RNA BY PCR Routine 07/27/2022 8:50 EDT documented in this encounter Results * SYPHILIS SEROLOGY (07/27/2022 8:50 EDT) Syphilis Serology Negative Negative 07/29/2022 10:00 EDT [facility] Blood VENOUS BLOOD / Unknown 07/27/2022 8:50 EDT 07/28/2022 17:28 EDT Provider Outr Resulting Lab IMMUNOLOGY A ND SEROLOGY ORDERABLES [facility] [address] [place] [address] * HEPATITIS C AB W REFLEX TO HCV RNA BY PCR (07/27/2022 8:50 EDT) Hep C Antibody Negative Negative 07/29/2022 10:26 EDT [facility] Blood VENOUS BLOOD / Unknown 07/27/2022 8:50 EDT 07/28/2022 17:28 EDT Provider Outr Resulting Lab CHEMISTRY & BLOOD GAS ORDERABLES Performing Organization Address [facility] Co de Phone Number [facility] [address] [place] [address] documented in this encounter Visit Diagnoses Not on filedocumented in this encounter Care Teams Unionmelt Operator Relationship Specialty Start Date End Date Nikki Sheridan, VINICIO [facility] [address] [place], [place] [address] PCP - General 04/02/09 documented as of this encounter
--- OUTSIDE RECORDS SUMMARY | 2024-06-13 14:58 | XMS_ITS | Encounter Summary ---
Author Organization [facility] Address [address] [place] [address] Care Team Providers Care Distribution Operation Supervisor Name Role Phone Unavailable Primary Care Provider Unavailabl e Encounter Details Date Type Department Care Team (Late st Contact Info) Description 03/28/2009 Orders Only [facility] - [facility] [address] [place] [address], [place] [address] Juanis Irving MD [address] [place] [address] Social History Tobacco Use Types Packs/Day Years Used Date Smoking Tobacco: Never Assessed Sex and Gender Information Value Date Recorded Sex Assigned at Not on file Gender Identity Not on file Sexual Orientation Not on file documented as of this encounter Plan of Treatment Not on file documented as of this encounter Procedures Procedure Name Priority Date/Time Associated Diagnosis Comments SURGICAL PATHOLOGY Routine 03/28/2009 0:00 EDT documented in this encounter Results * SURGICAL PATHOLOGY (03/28/2009 0:00 EDT) Pathology Report: SURGICAL PATHOLOGY REPORT ? Reports generated via electronic interface contain original data; ? however they are lacking the format of the original report. ? Caution should be taken when reading/interpreti ng unformatted reports. ? Name: ? DON, JAYCOBA I ? Accession #: ? [id number] ? : ? 1980 (Age: 29) ??F ? Collect Date: ? 03/28/2009 ? Location: ? [facility] ? Receive Date: ? 03/29/2009 ? Provider: JUANIS BERRIAN MD ? Copy to: NEHAL NORRIS ENERGY ENGINEER ? Final Pathologic Diagnosis: ? Skin of shoulder, left, excisional biopsy: ? 1. ?Melanocytic nevus, compound type, with unusual architectural ? features and severe cytologic atypia. ??See comment. ? - Nevus extends to peripheral margin of excisional biopsy specimen. ? Comment: ? Multiple deeper sections of the excision were reviewed. ??The excision ? consists of a compound melanocytic nevus that has significant architectural ? disorder and cytologic atypia. ??The junctional component extends beyond the ? dermal component and is transected at the peripheral margin of the excision. ? Given the degree of atypia, re-excision to completely remove the lesion is ? recommended. ??(Dr. Wilburn)/mms ? Microscopic Description: ? Sections consist of an excision of skin to the deep reticular dermis. ? There is a broad compound melanocytic proliferation that spans much of the ? excision specimen. ??The intraepidermal component extends beyond the dermal ? component in a somewhat asymmetric fashion. ??The junctional melanocytes are ? arranged in nests and as individual cells. ??The nests are mainly in the central portion of the lesion and are ill-defined. ??Individual melanocytes predominate ?? laterally and are unevenly spaced. ??In some areas, the individual melanocytes ?? are crowded, but well developed confluent growth is not evident. ??The ? melanocytes do not show tendency toward upward migration. ??The junctional ? melanocytes are large and show significant variation in nuclear size and shape. There are occasional large forms with dark hyperchromatic nuclei. ??Multinucleate forms are also evident. ??The dermal component is roughly wedge-shaped. ??The ? melanocytes have more abundant cytoplasm and a moderate-marked degree of nuclear pleomorphism. ??In general, the melanocytes show features of maturation with ? nests diminishing to cords in the deep dermis. ??No definitive mitotic figures ?? are identified on either the original or additional deeper sections. ??( ? Cosmo)/mms ? Document reviewed and electronically signed by: ? Tonya Wilburn MD ? Report ??Date: 04/02/2009 16:38 ? By the signature above, the attending physician certifies that he/she has ? personally conducted a gross and/or microscopic examination of the described ? specimens and rendered or confirmed the above diagnosis. ? Specimen(s) Received: ? Elliptical excision to level of subdermal fat ? Clinical History: ? 8.0 mm lesion L shoulder area ??raised, pink, has been gradually growing ? Gross Description: ? Received in formalin labelled Magnolia, Kathaleena and mole on left ? shoulder is an unoriented elliptical excision of dozier-white skin measuring 1.2 x 0.8 cm and is excised to a depth of 0.5 cm. ??There is a central dozier-white ? asymmetrical flat papule measuring 0.6 x 0.3 x 0.1 cm. ??The margins are inked ?? black. ??The specimen is serially sectioned and entirely submitted as (A1) ? central sections and (A2) ??tips, reverse en face. ??(Ashtyn Gibson)/khris ? End of Report ? [facility] 03/28/2009 03/29/2009 9:3 1 EDT Juanis Irving MD PATHOLOGY ORDERABLES [facility] [address] [place] [address] documented in this encounter Visit Diagnoses Not on filedocumented in this encounter
--- OUTSIDE RECORDS SUMMARY | 2024-06-13 14:58 | XMS_ITS | Encounter Summary ---
Author Organization [facility] Address [address] [place] [address] Care Team Providers Care Wind Farm Electrical Systems Designer Name Role Phone Unavailable Primary Care Provider Unavailabl e Encounter Details Date Type Department Care Team (Late st Contact Info) Description 03/31/2000 21:27 EDT Hospital Encounter [facility] - Other [address] [place] [address] Suhail Dominguze NP [address] [place] [address] Unknown, Provider, Social History Tobacco Use Types Packs/Day Years Used Date Smoking Tobacco: Never Assessed Sex and Gender Information Value Date Recorded Sex Assigned at Not on file Gender Identity Not on file Sexual Orientation Not on file documented as of this encounter Plan of Treatment Pending Results Name Type Priority Associated Diagnoses Date /Time CYTOPATHOLOGY Pathology Routine 09/30/2009 0:00 EST CYTOPATHOLOGY Pathology Routine 09/30/2009 0:00 EST Scheduled Orders Name Type Priority Associated Diagnoses Orde r Schedule CYTOPATHOLOGY Pathology Routine For medicat ions that can be administered at any time during the hospitalization for visit such as immunizations. for 1 Occurrences starting 09/30/2009 CYTOPATHOLOGY Pathology Routine For medicat ions that can be administered at any time during the hospitalization for visit such as immunizations. for 1 Occurrences starting 09/30/2009 documented as of this encounter Procedures Procedure Name Priority Date/Time Associated Diagnosis Comments CYTOPATHOLOGY Routine 09/30/2009 0:00 EST N.GONORRHOEAE PROBE Routine 03/31/2000 1 1:00 EDT CHLAMYDIA TRACHOMATIS PROBE Routine 03/31/2000 11:00 EDT PROLACTIN Routine 03/31/2000 11:00 EDT TSH Routine 03/31/2000 11:00 EDT LH Routine 03/31/2000 11:00 EDT FSH Routine 03/31/2000 11:00 EDT CYTOPATHOLOGY Routine 03/31/2000 0:00 EDT documented in this encounter Results * CYTOPATHOLOGY (09/30/2009 0:00 EST) Pathology Report: CYTOPATHOLOGY REPORT ? Reports generated via electronic interface contain original data; ? however they are lacking the format of the original report. ? Caution should be taken when reading/interpreti ng unformatted reports. ? Name: ? IFTIKHAR OCHOA I ? Accession #: ? [id number] ? : ? 1980 (Age: 29) ??F ?Collect Date: ? 09/30/2009 ? Location: ? [facility] ? Receive Date: ? 09/30/2009 ? Provider: ?ANTOLIN SAMANTA JAILKEEPER ? Copy to: ? Specimen/Source: ?Pap Test, [...] Intraepithelial Lesion or Malignancy ? INTERPRETATION ? Reactive cellular changes associated with inflammation present (includes ?? repair). ? Shift in rika present suggestive of bacterial vaginosis. ? Document reviewed and electronically signed by: ? Aj B. Mikalaaymadhavi, MD ? Report Date: ??10/04/2009 13:52 ? End of Report ? [facility] 09/30/2009 09/30/2009 Antolin Turner JAILKEEPER PATHOLOGY ORDERABLES [facility] [address] [place] [address] * N.GONORRHOEAE PROBE (03/31/2000 11:00 EDT) Specimen Description Cervix [facility] Result No Neisseria gonorrhoeae DNA detected by farmworker cranberry mediated amplification. [facility] Report Status Final [id number] [facility] 03/31/2000 11:0 0 EDT 04/01/2000 8:14 EDT Suhail A Angelica VOLUNTEER COORDINATOR HISTORICAL LAB FOR S Q LOAD Performing Organization Address [facility] Co de Phone Number [facility] [address] [place] [address] * CHLAMYDIA TRACHOMATIS PROBE (03/31/2000 11:00 EDT) Specimen Description Cervix [facility] Result No Chlamydia trachomatis DNA detected by farmworker cranberry mediated amplification. [facility] Report Status Final [facility] 03/31/2000 11:0 0 EDT 04/01/2000 8:14 EDT Suhail A Angelica VOLUNTEER COORDINATOR HISTORICAL LAB FOR S Q LOAD Performing Organization Address [facility] de Phone Number [facility] [address] [place] [address] * TSH (03/31/2000 11:00 EDT) TSH 1.18 0.35 - 5.50 uIU/ml [facility] 03/31/2000 11:0 0 EDT 03/31/2000 20:30 EDT Suhail A Angelica VOLUNTEER COORDINATOR CHEMISTRY & BLOOD GA S ORDERABLES Performing Organization Address [facility] de Phone Number [facility] [address] [place] [address] * PROLACTIN (03/31/2000 11:00 EDT) Prolactin 8.5 ng/ml [facility] Comment: Non-: 2.8-29.2 : 9.7-208.5 Post Menopausal: 1.8-20.3 03/31/2000 11:0 0 EDT 03/31/2000 20:30 EDT Suhail A Angelica VOLUNTEER COORDINATOR CHEMISTRY & BLOOD GA S ORDERABLES Performing Organization Address [facility] Co de Phone Number [facility] [address] [place] [address] * LH (03/31/2000 11:00 EDT) LH 27.4 mIU/ml [facility] Comment: Follicular: 1-18 Mid-Cycle Peak: 15-80 Luteal: 0.5-18 Postmenopausal: 12-55 Note new reference range. 03/31/2000 11:0 0 EDT 03/31/2000 20:30 EDT Suhail Tate Dominguez VOLUNTEER COORDINATOR CHEMISTRY & BLOOD GA S ORDERABLES Performing Organization Address [facility] de Phone Number [facility] [address] [place] [address] * FSH (03/31/2000 11:00 EDT) Pathologist [facility] FSH 5.4 mIU/ml [facility] Comment: Follicular: 2-11 Mid-Cycle Peak: 3.4-35 Luteal: 1-9 Postmenopausal: 25-120 Note new reference range. 03/31/2000 11:0 0 EDT 03/31/2000 20:30 EDT Suhail Tate Prettyle VOLUNTEER COORDINATOR CHEMISTRY & BLOOD GA S ORDERABLES Performing Organization Address [facility] de Phone Number [facility] [address] [place] [address] * CYTOPATHOLOGY (03/31/2000 0:00 EDT) Pathologist [facility] Pathology Report: CYTOPATHOLOGY REPORT Reports generated via electronic interface contain original data; however they are lacking the format of the original report. Caution should be taken when reading/interpreti ng unformatted reports. Name: ? DONQIANA HOGANKANU Mcnamara ? Accession #: ? [id number] : ? 1980 (Age: 20) ??F ?Collect Date: ? 03/31/2000 Location: ? [facility] ? Receive Date: ? 04/02/2000 Provider: ?SUHAIL DOMINGUEZ VOLUNTEER COORDINATOR Copy to: ? Specimen/Source: ?ThinPrep Pap Test, Source Not Provided Last Menstrual Period: ? 12/26/99 Previous Gynecologic Pathology: ? Yes: 1998. Treatment History: ? Colposcopy: Normal follow up. ? SPECIMEN ADEQUACY ? Satisfactory for evaluation. GENERAL CATEGORIZATION ? Within Normal Limits ? Document reviewed and electronically signed by: ? HORACE Curiel(ASCP) ? Report Date: ??04/02/2000 13:13 End of Report [facility] 03/31/2000 04/02/2000 Suhail Dominguez VOLUNTEER COORDINATOR PATHOLOGY ORDERABLES [facility] [address] [place] [address] documented in this encounter Visit Diagnoses Not on filedocumented in this encounter
--- OUTSIDE RECORDS SUMMARY | 2024-06-13 14:58 | XMS_ITS | Encounter Summary ---
Author Organization [facility] Address [address] [place] [address] Care Team Providers Care Mat Maker Name Role Phone Unavailable Primary Care Provider Unavailabl e Encounter Details Date Type Department Care Team (Latest Contact Info) Description 08/01/1999 22:28 EDT Hospital Encounter [facility] Emergency Department - [facility] [address] [place], [place] [address] Emergency, Default, MD Discharge Disposition: Home or Self Care Social History Tobacco Use Types Packs/Day Years [...] on file documented as of this encounter Visit Diagnoses Not on filedocumented in this encounter
--- OUTSIDE RECORDS SUMMARY | 2024-06-13 14:58 | XMS_ITS | Clinical Summary ---
Author Organization [facility] Address [address] [place] [address] Care Team Providers Care Radar Engineer Name Role Phone Nikki Sheridan NP Primary Care Provider [phone] Social History Tobacco Use Types Packs/Day Years Used Date Smoking Tobacco: Never Assessed Sex and Gender Information Value Date Recorded Sex Assigned at Not on file Gender Identity Not on file Sexual Orientation Not on file Plan of Treatment Health Maintenance Due Date Last Done Comments Hepatitis B Vaccine (1 of 3 - 19+ 3-dose series) 03/30 COVID-19 Vaccine ( season) 2023 Hepatitis C Screen Completed 07/27/2022 Procedures Procedure Name Priority Date/Time Associated Diagnosis Comments HEPATITIS C AB W REFLEX TO HCV RNA BY PCR Routine 07/27/2022 8:50 EDT from Last 3 Months or Most Recently Relevant to Health Maintenance Results * HEPATITIS C AB W REFLEX TO HCV RNA BY PCR (07/27/2022 8:50 EDT) Hep C Antibody Negative Negative 07/29/2022 10:26 EDT [facility] Blood VENOUS BLOOD / Unknown 07/27/2022 8:50 EDT 07/28/2022 17:28 EDT Provider Outr Resulting Lab CHEMISTRY & BLOOD GAS ORDERABLES [facility] [address] [place] [address] from Last 3 Months or Most Recently Relevant to Health Maintenance Care Teams Radar Engineer Relationship Specialty Start Date End Date Nikki Sheridan NP [place] [address] [place] [address] PCP - General 04/02/09
--- OUTSIDE RECORDS SUMMARY | 2024-06-13 14:58 | XMS_ITS | Encounter Summary ---
Author Organization [facility] Address [address] [place] [address] Care Team Providers Care Railroad Shop Inspector Name Role Phone Nikki Sheridan NP Primary Care Provider [phone] Encounter Details Date Type Department Care Team (Late st Contact Info) Description 08/13/2023 Lab Requisition [facility] Pathology & Laboratory Medicine - [facility] [address] [place], [place] [address] Outr Resulting Lab, Provider Social History Tobacco [...] Comments CHLAMYDIA/N. GONORRHOEAE AMPLIFIED NUCLEIC ACID Routine 08/13/2023 8:20 EDT documented in this encounter Results * CHLAMYDIA/N. GONORRHOEAE AMPLIFIED RNA (08/13/2023 8:20 EDT) Neisseria gonorrhoeae Result Negative Negative 08/14/2023 22:21 EDT [facility] Chlamydia trachomatis Result Negative Negative 08/14/2023 22:21 EDT [facility] Urine URINE / Unknown 08/13/2023 8 :20 EDT 08/13/2023 22:10 EDT Narrative [facility] - 08/14/2023 22:21 EDT A first catch urine specimen is acceptable for detection of Gonorrhea and Chlamydia, but might detect up to 10% fewer infections when compared with vaginal and endocervical swab samples. Provider Outr Resulting Lab MICROBIOLOGY - GENERAL ORDERABLES [facility] [address] [place] [address] documented in this encounter Visit Diagnoses Not on filedocumented in this encounter Care Teams Railroad Shop Inspector Relationship Specialty Start Date End Date Nikki Sheridan NP [facility] [address] [place] [address] PCP - General 04/02/09 documented as of this encounter
--- OUTSIDE RECORDS SUMMARY | 2024-06-13 14:58 | XMS_ITS | Encounter Summary ---
Author Organization [facility] Address [address] [place] [address] Care Team Providers Care Hole Filler Name Role Phone Neena Sheridanan Danilo HOLDER PILE DRIVING Primary Care Provider [phone] Encounter Details Date Type Department Care Team (Late st Contact Info) Description 09/18/2016 Results Only [facility] [phone] Maryana Faith MD [address] [place] [address] Social History Tobacco Use Types Packs/Day Years Used Date Smoking Tobacco: Never Assessed Sex and Gender Information Value Date Recorded Sex Assigned at Not on file Gender Identity Not on file Sexual Orientation Not on file documented as of this encounter Plan of Treatment Not on file documented as of this encounter Procedures Procedure Name Priority Date/Time Associated Diagnosis Comments CYTOPATHOLOGY Routine 09/11/2016 0:00 EST documented in this encounter Results * CYTOPATHOLOGY (09/11/2016 0:00 EST) Pathology Report: CYTOPATHOLOGY REPORT Reports generated via electronic interface contain original data; however they are lacking the format of the original report. Caution should be taken when reading/interpret ing unformatted reports. Name: ? IFTIKHAR LEAVITT I ? Accession #: ? [id number] : ? 1980 (Age: 36) ??F ?Collect Date: ? 09/11/2016 Location: ? [facility] ? Receive Date: ? 09/18/2016 Provider: ? MARYANA FAITH MD Copy to: ? CYTOLOGIC DIAGNOSIS: URINE, VOIDED, CYTOLOGIC EVALUATION: - ??No malignant cells identified. See comment. - ??Rare benign urothelial cells identified. - ??Specimen predominantly composed of abundant squamous cell contamination with associated bacteria. ? COMMENT: Cytologic evaluation reveals a specimen composed predominantly of abundant squamous cell contamination with only rare benign urothelial cells visualized. If clinically concerned, an additional sample should be obtained and sent for cytologic evaluation. Dr. Bhatia 09/18/2016 11:09 AM Document reviewed and electronically signed by: ? LOLI BHATIA MD Report Date: ??09/18/2016 16:18 By the signature above, the attending physician certifies that he/she has personally conducted a gross and/or microscopic examination of the described specimens and rendered or confirmed the above diagnosis. Specimen Type: ? Urine, Voided Clinical History: ? Microhematuria. clinical diagnosis code: ??R31.2. ? Gross Description: ? 100ccs of clear yellow fluid were received and processed by selective cellular enhancement technique. ? End of Report [facility] 09/11/2016 09/18/2016 8:3 1 EST Maryana Faith MD PATHOLOGY ORDERABLES [facility] [address] [place] [address] documented in this encounter Visit Diagnoses Not on filedocumented in this encounter Care Teams Hole Filler Relationship Specialty Start Date End Date Nikki Sheridan NP [facility] [address] [place] [address] PCP - General 04/02/09 documented as of this encounter
--- OUTSIDE RECORDS SUMMARY | 2024-06-13 14:58 | XMS_ITS | Encounter Summary ---
Author Organization [facility] Address [address] [place] [address] Care Team Providers Care Melter Supervisor Electric Arc Furnace Name Role Phone Nikki Sheridan NP Primary Care Provider [phone] Encounter Details Date Type Department Care Team (Late st Contact Info) Description 08/27/2006 Results Only [facility] [address] [place] [address] Shreya Turner, [facility] [address] [place] [phone] Social History Tobacco Use Types Packs/Day Years Used Date Smoking Tobacco: Never Assessed Sex and Gender Information Value Date Recorded Sex Assigned at Not on file Gender Identity Not on file Sexual Orientation Not on file documented as of this encounter Plan of Treatment Not on file documented as of this encounter Procedures Procedure Name Priority Date/Time Associated Diagnosis Comments CYTOPATHOLOGY Routine 08/27/2006 0:00 EDT documented in this encounter Results * CYTOPATHOLOGY (08/27/2006 0:00 EDT) Pathology Report: CYTOPATHOLOGY REPORT Reports generated via electronic interface contain original data; however they are lacking the format of the original report. Caution should be taken when reading/interpreti ng unformatted reports. Name: ? IFTIKHAR OCHOA I ? Accession #: ? [id number] : ? 1980 (Age: 26) ??F ?Collect Date: ? 08/27/2006 Location: ? [facility] ? Receive Date: ? 08/31/2006 Provider: ?SHREYA TURNER HOT PLATE PRESS OPERATOR Copy to: ? Specimen/Source: ?ThinPrep Pap Test, Cervix/Endocervix, processed on [employer] ThinPrep Imaging System, with manual evaluation Last Menstrual Period: ? 07/22/06 Hormonal/Contracep tive Status: ? Oral contraceptives Previous Gynecologic Pathology: [...] Report Date: ??09/06/2006 16:17 End of Report [facility] 08/27/2006 08/31/2006 Shreya Turner HOT PLATE PRESS OPERATOR PATHOLOGY ORDERABLES [facility] [address] [place] [address] documented in this encounter Visit Diagnoses Not on filedocumented in this encounter Care Teams Melter Supervisor Electric Arc Furnace Relationship Specialty Start Date End Date Nikki Sheridan NP [facility] [address] [place] [address] PCP - General 04/02/09 documented as of this encounter
--- OUTSIDE RECORDS SUMMARY | 2024-06-13 14:58 | XMS_ITS | Encounter Summary ---
Author Organization [facility] Address [address] [place] [address] Care Team Providers Care In Room Dining Server Name Role Phone Nikki Sheridan NP Primary Care Provider Encounter Details Date Type Department Care Team (Late st Contact Info) Description 11/09/2016 Results Only [facility] [phone] Shreya Turner, [facility] [address] [place] [phone] Social History Tobacco Use Types Packs/Day Years [...] Diagnosis Comments PAP TEST- RESULT ONLY Routine 11/09/2016 0:00 EST documented in this encounter Results * PAP TEST- RESULT ONLY (11/09/2016 0:00 EST) Pathology Report: CYTOPATHOLOGY REPORT Reports generated via electronic interface contain original data; however they are lacking the format of the original report. Caution should be taken when reading/interpreti ng unformatted reports. Name: ? IFTIKHAR LEAVITT I ? Accession #: ? [id number] ? : ? 1980 (Age: 36) ??F ?Collect Date: ? 11/09/2016 ? Location: ? [facility] ? Receive Date: ? 11/10/2016 ? Provider: SHREYA TURNER [facility] Copy to: SD GARDINER PA-C ? Final Report SPECIMEN ADEQUACY ? Satisfactory for Evaluation - transformation zone component present GENERAL CATEGORIZATION ? Negative for Intraepithelial Lesion or Malignancy ?? Last Menstrual Period: 10/20/2016 Specimen/Source: ??Pap Test, Cervix, ThinPrep Imaging System with manual evaluation Document reviewed and electronically signed by: ? HORACE Clayton(ASCP) ? Report ??Date: 11/12/2016 12:22 HPV with Pap Test ? Date Ordered: ? 11/12/2016 ? Status: ?? Signed Out ?Date Complete: ? 11/16/2016 ? By: ??System Interface ? Date Reported: ? 11/16/2016 ? Interpretation RESULT: Negative for HPV. No E6 or E7 mRNA is detected from HPV types 16,18,31,33,35, 39,45,51,52,56,58, 59,66, and 68 by graphics manager mediated amplification. Comments Document reviewed and electronically signed by: ? System Interface ? Report date: 11/16/2016 By the signature above, the attending physician certifies that he/she has personally conducted a gross and/or microscopic examination of the described specimens and rendered or confirmed the above diagnosis. End of Report [facility] 11/09/2016 11/10/2016 Shreya Turner GROUND CREWMAN MISSION SUPPORT PATHOLOGY ORDERABLES [facility] [address] [place] [address] documented in this encounter Visit Diagnoses Not on filedocumented in this encounter Care Teams In Room Dining Server Relationship Specialty Start Date End Date Nikki Sheridan, [facility] [address] [place] [address] PCP - General 04/02/09 documented as of this encounter
--- OUTSIDE RECORDS SUMMARY | 2024-06-13 14:58 | XMS_ITS | Encounter Summary ---
Author Organization [facility] Address [address] [place] [address] Care Team Providers Care Laboratory Chemist Name Role Phone Nikki Sheridan BUGGY LOADER Primary Care Provider [phone] Encounter Details Date Type Department Care Team (Latest Contact Info) Description 09/13/2014 14:30 EST - 09/13/2014 23:59 EST Hospital Encounter [address] [address] Unknown, Provider, Discharge Disposition: Home or Self Care Social History Tobacco Use Types Packs/Day Years Used Date Smoking Tobacco: Never Assessed Sex and Gender Information Value Date Recorded Sex Assigned at Not on file Gender Identity Not on file Sexual Orientation Not on file documented as of this encounter Discharge Disposition Disposition Code Departure Means Destination Home or Self Jail documented in this encounter Plan of Treatment Not on file documented as of this encounter Visit Diagnoses Not on filedocumented in this encounter Care Teams Laboratory Chemist Relationship Specialty Start Date End Date Nikki Sheridan NP [facility] [address] [place], [place] [address] PCP - General 04/02/09 documented as of this encounter
--- OUTSIDE RECORDS SUMMARY | 2024-06-13 14:58 | XMS_ITS | Referral Summary ---
Author Organization [facility] Address [address] [place] [address] Care Team Providers Care Personal Development Mentor Name Role Phone Nikki Sheridan RESEARCH AND EVALUATION ANALYST Primary Care Provider [phone] Social History Tobacco Use Types Packs/Day Years Used Date Smoking Tobacco: Never Assessed Sex and Gender Information Value Date Recorded Sex Assigned at Not on file Gender Identity Not on file Sexual Orientation Not on file Plan of Treatment Not on file Procedures Procedure Name Priority Date/Time Associated Diagnosis [...] [facility] [address] [place] [address] from Last 3 Months or Most Recently Relevant to Health Maintenance Care Teams Personal Development Mentor Relationship Specialty Start Date End Date Nikki Sheridan NP [facility] [address] [place] [address] [phone] (work) [facility] - General 04/02/09
--- OUTSIDE RECORDS SUMMARY | 2024-06-13 14:58 | XMS_ITS | Encounter Summary ---
Author Organization [facility] Address [address] [place] [address] Care Team Providers Care Behavioral Modification Assistant Name Role Phone FatimahNikki Danilo MOONEY Primary Care Provider [phone] Encounter Details Date Type Department Care Team (Late st Contact Info) Description 09/06/2007 Results Only [facility] [address] [place] [address] Jazmin Shannon MD [address] [place] [address] [place] [address] Social History Tobacco Use Types Packs/Day Years Used Date Smoking Tobacco: Never Assessed Sex and Gender Information Value Date Recorded Sex Assigned at Not on file Gender Identity Not on file Sexual Orientation Not on file documented as of this encounter Plan of Treatment Not on file documented as of this encounter Procedures Procedure Name Priority Date/Time Associated Diagnosis Comments CYTOPATHOLOGY Routine 09/06/2007 0:00 EST documented in this encounter Results * CYTOPATHOLOGY (09/06/2007 0:00 EST) Pathology Report: CYTOPATHOLOGY REPORT Reports generated via electronic interface contain original data; however they are lacking the format of the original report. Caution should be taken when reading/interpreti ng unformatted reports. Name: ? IFTIKHAR OCHOA I ? Accession #: ? [id number] : ? 1980 (Age: 27) ??F ?Collect Date: ? 09/06/2007 Location: ? [facility] ? Receive Date: ? 09/07/2007 Provider: ?JAZMIN SHANNON MD Copy to: ? Specimen/Source: ?ThinPrep Pap Test, Cervix/Endocervix, processed on ZiffiPrep Imaging System, with manual evaluation Last Menstrual Period: ? Previous Gynecologic Pathology: ? GISEL I: 03/06 ? SPECIMEN ADEQUACY ? Satisfactory for Evaluation - transformation zone component present GENERAL CATEGORIZATION ? Negative for Intraepithelial Lesion or Malignancy ? Document reviewed and electronically signed by: ? HORACE Curiel(ASCP) ? Report Date: ??09/12/2007 13:12 End of Report [facility] 09/06/2007 09/07/2007 Jazmin Shannon MD PATHOLOGY ORDERABLES Performing Organization Address City/State/[facility] Co de Phone Number TRISTIAN HUERTA [address] [place] [address] documented in this encounter Visit Diagnoses Not on filedocumented in this encounter Care Teams Behavioral Modification Assistant Relationship Specialty Start Date End Date Nikki Sheridan NP [facility] [address] [place] [address] PCP - General 04/02/09 documented as of this encounter
--- OUTSIDE RECORDS SUMMARY | 2024-06-13 14:58 | XMS_ITS | Encounter Summary ---
Author Organization [facility] Address [address] [place] [address] Care Team Providers Care Chin Strap Cutter Name Role Phone Nikki Sheridan NP Primary Care Provider [phone] Encounter Details Date Type Department Care Team (Late st Contact Info) Description 07/28/2022 Lab Requisition [facility] Pathology & Laboratory Medicine - [facility] [address] [place], [place] [address] Outr Resulting Lab, Provider Social History Tobacco [...] Procedure Name Priority Date/Time Associated Diagnosis Comments HIV 1/2 ANTIGEN AND ANTIBODY, 4TH GENERATION Routine 07/27/2022 8:50 EDT documented in this encounter Results * HIV 1/2 ANTIGEN AND ANTIBODY, 4TH GENERATION (07/27/2022 8:50 EDT) HIV 1 and 2 Antibody/p24 Antigen, 4th Generation Negative Negative 07/29/2022 10:05 EDT [facility] Comment:If acute HIV-1 infec tion is suspected in a high risk patient, submit plasma specimen for HIV-1 RNA quantitation test. Blood VENOUS BLOOD / Unknown 07/27/2022 8:50 EDT 07/28/2022 17:17 EDT Narrative [facility] - 07/29/2022 10:05 EDT Fourth Generation assay performed on the Siemens Centaur XPT. Provider Outr Resulting Lab IMMUNOLOGY A ND SEROLOGY ORDERABLES [facility] [address] [place] [address] documented in this encounter Visit Diagnoses Not on filedocumented in this encounter Care Teams Chin Strap Cutter Relationship Specialty Start Date End Date Nikki Sheridan NP [facility] [address] [place], [place] [id number] PCP - General 04/02/09 documented as of this encounter
--- OUTSIDE RECORDS SUMMARY | 2024-06-13 14:58 | XMS_ITS | Encounter Summary ---
Author Organization [facility] Address [address] [place] [address] Care Team Providers Care Social Service Assistant Name Role Phone Nikki Norris NP Primary Care Provider [phone] Encounter Details Date Type Department Care Team (Late st Contact Info) Description 11/27/2013 Results Only [facility] Laboratory Services - [facility] ([facility] [address] [place], [place] [address] Shreya Turner, [facility] [address] [place] [phone] Social History Tobacco Use Types Packs/Day Years [...] Diagnosis Comments PAP TEST- RESULT ONLY Routine 11/27/2013 0:00 EST documented in this encounter Results * PAP TEST- RESULT ONLY (11/27/2013 0:00 EST) Pathology Report: CYTOPATHOLOGY REPORT Reports generated via electronic interface contain original data; however they are lacking the format of the original report. Caution should be taken when reading/interpreti ng unformatted reports. Name: ? IFTIKHAR LEAVITT I ? Accession #: ? [id number] ? : ? 1980 (Age: 33) ??F ?Collect Date: ? 11/27/2013 ? Location: ? [facility] ? Receive Date: ? 11/28/2013 ? Provider: SHREYA TURNER DEPLOYMENT SPECIALIST Copy to: NIKKI NORRIS TUB MENDER ? Final Report SPECIMEN ADEQUACY ? Satisfactory for Evaluation - transformation zone component present GENERAL CATEGORIZATION ? Negative for Intraepithelial Lesion or Malignancy ?? Last Menstrual Period: 11/11/13 Specimen/Source: ??Pap Test, Cervix/Endocervix, ThinPrep Imaging System with manual evaluation Document reviewed and electronically signed by: ? Sandra Bell, HORACE(ASCP) ? Report ??Date: 11/30/2013 11:48 HPV with Pap Test ? Date Ordered: ? 11/30/2013 ? Status: ?? Signed Out ?Date Complete: ? 12/04/2013 ? By: ??System Interface ? Date Reported: ? 12/04/2013 ? Interpretation RESULT: Negative for HPV. No E6 or E7 mRNA is detected from HPV types 16,18,31,33,35, 39,45,51,52,56,58, 59,66, and 68 by rn review mediated amplification. Comments Document reviewed and electronically signed by: ? System Interface ? Report date: 12/04/2013 By the signature above, the attending physician certifies that he/she has personally conducted a gross and/or microscopic examination of the described specimens and rendered or confirmed the above diagnosis. End of Report [facility] 11/27/2013 11/28/2013 Shreya Turner DEPLOYMENT SPECIALIST PATHOLOGY ORDERABLES [facility] [address] [place] [address] documented in this encounter Visit Diagnoses Not on filedocumented in this encounter Care Teams Social Service Assistant Relationship Specialty Start Date End Date Nikki Norris NP [facility] [address] [place] [address] PCP - General 04/02/09 documented as of this encounter
--- OUTSIDE RECORDS SUMMARY | 2024-06-13 14:59 | XMS_ITS | Encounter Summary ---
[place] [address] Care Team Providers Care Filling Separator Name Role Phone Alissa Reynolds Primary Care Provider [phone] Encounter Details Date Type Department Care Team (Late st Contact Info) Description 12/22/2012 [place] [address] Viky Tate, MACHINIST SUPERVISOR OUTSIDE Social History Tobacco Use Types Packs/Day Years Used Date Smoking Tobacco: Every Day Cigarettes 1 15 Smokeless Tobacco: Never Comments:pcp working with pt to quit Sex and Gender Information Value Date Recorded Sex Assigned at Not on file Gender Identity Not on file Sexual Orientation Not on file documented as of this encounter Plan of Treatment Not on file documented as of this encounter Visit Diagnoses Not on filedocumented in this encounter Care Teams Filling Separator Relationship Specialty Start Date End Date Alissa Reynolds PA [address] [place] [address] PCP - General 12/23/12 06/18/20 documented as of this encounter
--- OUTSIDE RECORDS SUMMARY | 2024-06-13 14:59 | XMS_ITS | Encounter Summary ---
Author Organization [facility] [place] [address] Care Team Providers Care Thermostatic Controls Supervisor Name Role Phone Alissa Reynolds Primary Care Provider [phone] Reason for Visit * Reason Comments Skin Check Encounter Details Date Type Department Care Team (Late st Contact Info) Description 09/09/2015 3:30 PM EST Office Visit Dermatology at [place] [address] [facility] [place] [address] Willy Robison MD [address], [place] [address] [place]ERMATOLOGY [place], [place] [id number] Nevus; Spider angioma Social History Tobacco Use Types Packs/Day Years Used Date Smoking Tobacco: Every Day Cigarettes 1 15 Smokeless Tobacco: Never Comments:smoking 0.5ppd-1ppd - pcp prescibed chantix- has at home when has quit date Sex and Gender Information Value Date Recorded Sex Assigned at Not on file Gender Identity Not on file Sexual Orientation Not on file documented as of this encounter Patient Instructions * Patient Instructions* Thi Orr LPN - 09/09/2015 3:21 PM EST Images from the original note were not included. [facility] Skin Lesions: After Your Visit Your Care Instructions A skin lesion is a general term used for the different types of bumps, spots, moles or other growths that may appear on your skin. Most skin [...] until the bleeding stops. ?? Take an udaj-hjq-benusve pain medicine, such as acetaminophen (Tylenol), ibuprofen (Advil, Motrin), or naproxen (Aleve). Read and follow all instructions on the label. ?? Do not take two or more pain medicines at the same time unless the doctor told you to. Many painmedicines have acetaminophen, which is Tylenol. Too much [...] more? Visit our health information library at [email or web address] - NightCoveinfo You can also view health information on [employer], your personal patient account. Log in or sign up today. Enter E372 in the search box to learn more about Skin Lesions: After Your Visit. ?? [phone] [employer]. Care instructions adapted under license by [facility]. This care instruction is for use with your licensed healthcare professional. If you have questions about a medical condition or this instruction, always ask your healthcare professional. [employer] disclaims any warranty or liability for your use of this information. Content Version: 10.4.987657; Current as of: January 10, 2014 documented in this encounter Progress Notes * Willy Robison MD - 09/09/2015 3:42 PM [...] P.A.-C. documented in this encounter Miscellaneous Notes * Addendum Note - Willy Robison MD - 09/09/2015 3:47 PM ESTAddended by: WILLY ROBISON on: 09/09/2015 03:47 PM Modules accepted: Level of Service documented in this encounter Plan of Treatment Not on file documented as of this encounter Visit Diagnoses Diagnosis Nevus Benign neoplasm of skin, site unspecified Spider angioma Nevus, non-neoplastic documented in this encounter Care Teams Thermostatic Controls Supervisor Relationship Specialty Start Date End Date Alissa Reynolds PA [address] [place] [address] PCP - General 12/23/12 06/18/20 documented as of this encounter
--- OUTSIDE RECORDS SUMMARY | 2024-06-13 14:59 | XMS_ITS | Encounter Summary ---
Author Organization [facility] [place] [address] Care Team Providers Care Medical Instrument Technician Name Role Phone Alissa Reynolds Primary Care Provider [phone] Encounter Details Date Type Department Care Team (Latest Contact Info) Description 06/19/2013 8:01 AM EDT - 06/19/2013 11:59 PM EDT Hospital [place] [address] Mechanical low back pain; Thoracic back pain Social History Tobacco Use Types Packs/Day Years [...] Refills Start Date End Date levalbuterol (XOPENEX) 0.63 mg/3 mL nebulizer solution Take 1 ampule by nebulization as needed. hydroCODone-acetaminoph en (VICODIN) 5-500 mg per tablet Take 1 tablet by mouth 3 times daily as needed. triamcinolone (ARISTOCORT) 0.5 % cream Apply topically 2 times daily. naproxen (NAPROSYN) 500 mg tablet Take 500 mg by mouth 2 times daily (with meals). documented as of this encounter Plan of Treatment Not on file documented as of this encounter Procedures Procedure Name Priority Date/Time Associated Diagnosis Comments MRI LUMBAR SPINE WITHOUT CONTRAST Routine 06/19/2013 9:04 AM EDT Mechanical low back pain Thoracic back pain documented in this encounter Results * MRI lumbar spine without contrast (06/19/2013 9:04 AM EDT) Anatomical Region Laterality Modality L-spine Magnetic Resonan ce 06/19/2013 9:04 AM EDT Narrative 06/19/2013 9:30 AM EDT Examination MR Thoracic Spine WO [facility]dias Clinical History chronic thoracic back pain ?? recent exacerbation not improving R/O spondylosis/herniated nucleus pulposus Comparison MR 06/29/2012. Technique MRI of the thoracic and MRI of the lumbar spine performed without the use of intravenous contrast. Findings Thoracic spine: The overall alignment of the thoracic spine is normal. ??There is no aggressive appearing marrow lesion. ??Thoracic cord signal is normal throughout. ??The paraspinous soft tissues appear normal. A left paracentral disc extrusion is present at the T11-T12 level. ??This contacts and distorts the thoracic cord without abnormal cord signal. ??There is no other disc herniation identified. ??There is no neural foraminal narrowing at any level. ?? Lumbar spine: ??Overall alignment of the lumbar spine is normal. ??There is no aggressive marrow lesion. ??The conus is normal in appearance, and terminates at the L1 level. ??A large hypo intense structure present in the gallbladder likely represents a stone. ??Visualized retroperitoneum is otherwise unremarkable. Findings at specific levels: L1-L2: ??A small right foraminal disc extrusion is present without significant central canal or neural foraminal narrowing. L2-L3: ??No central canal, or neural foraminal narrowing. L3-L4: ??No central canal, or neural foraminal narrowing. ?? L4-L5: Bilateral facet arthropathy is present without central canal or neural foraminal narrowing. L5-S1: ??A central and left paracentral disc extrusion with caudal migration of disc material is present. ??Disc material is immediately adjacent to the traversing left S1 root, but does not appear to significantly distort the root. Impression ? 1. T11-T12 disc extrusion, similar in appearance to the prior MRI. ? 2. Disc herniations at L1-L2 and L5-S1. ??The herniation at L1-L2 is similar to the previous study. ??The extrusion at L5-S1 has increased compared to the previous exam. Procedure Note Peter Wayne MD - 06/19/2013 Examination MR Thoracic Spine WO [facility]di[facility] Clinical History chronic thoracic back pain recent exacerbation not improving R/O spondylosis/herniated nucleus pulposus Comparison MR 06/29/2012. Technique MRI of the thoracic and MRI of the lumbar spine performed without the useof intravenous contrast. Findings Thoracic spine: The overall alignment of the thoracic spine is normal.There is no aggressive appearing marrow lesion. Thoracic cord signal is normal throughout. The paraspinous soft tissues appear normal. A left paracentral disc extrusion is present at the T11-T12 level. This contacts and distorts the thoracic cord without abnormal cord signal.There is no other disc herniation identified. There is no neural foraminalnarrowing at any level. Lumbar spine: Overall alignment of the lumbar spine is normal. There isno aggressive marrow lesion. The conus is normal in appearance, andterminates at the L1 level. A large hypo intense structure present in the gallbladderlikely represents a stone. Visualized retroperitoneum is otherwise unremarkable. Findings at specific levels: L1-L2: A small right foraminal disc extrusion is present withoutsignificant central canal or neural foraminal narrowing. L2-L3: No central canal, or neural foraminal narrowing. L3-L4: No central canal, or neural foraminal narrowing. L4-L5: Bilateral facet arthropathy is present without central canal orneural foraminal narrowing. L5-S1: A central and left paracentral disc extrusion with caudalmigration of disc material is present. Disc material is immediately adjacent to the traversing left S1 root, but does not appear to significantly distort theroot. Impression 1. T11-T12 disc extrusion, similar in appearance to the prior MRI. 2. Disc herniations at L1-L2 and L5-S1. The herniation at L1-L2 is similar to the previous study. The extrusion at L5-S1 has increasedcompared to the previous exam. Juan Parkinson MD IM MRI ORDERABLES documented in this encounter Visit Diagnoses Diagnosis Mechanical low back pain Lumbago Thoracic back pain Pain in thoracic spine documented in this encounter Care Teams Medical Instrument Technician Relationship Specialty Start Date End Date Alissa Reynolds PA [address] [place] [address] PCP - General 12/23/12 06/18/20 documented as of this encounter
--- OUTSIDE RECORDS SUMMARY | 2024-06-13 14:59 | XMS_ITS | Encounter Summary ---
Author Organization [facility] [place] [address] Care Team Providers Care Bundle Helper Name Role Phone Alissa Reynolds Primary Care Provider [phone] Reason for Visit * Reason Comments Back Pain Encounter Details Date Type Department Care Team (Late st Contact Info) Description 12/23/2012 10:20 AM EST Office [place] [address] Saleem Chanel PA [facility] [place] [address] Mechanical low back pain (Primary Dx) Discharge Disposition: Home Social History Tobacco Use Types Packs/Day Years [...] EST documented in this encounter Patient Instructions * Patient Instructions* Maria E Mcgregor LNA - 12/23/2012 10:42 AM EST Images from the original note were not included. [facility] Stopping Smoking: After Your Visit Your Care Instructions Cigarette smokers crave the nicotine in cigarettes. Giving it up is much harder than simply changing a habit. Your body has to stop craving the nicotine. It is hard to quit, but you can do it. There are many tools that people use to quit smoking. You may find that combining tools works best for you. There are several steps to quitting. First you get ready to quit. Then you get support to help you.After that, you learn new skills and behaviors [...] tobacco are uncomfortable. Your body will miss thenicotine at first, and you may feel short-tempered and grumpy. You may have trouble sleeping or concentrating. Medicine can help you deal with these symptoms. You may struggle with changing your smoking habits and rituals. The last step is the [...] have a better chance of quitting if youhave help and support. ?? Join a support group, such as Nicotine Anonymous, for people who are trying to quit smoking. ?? Consider signing up for a smoking cessation program, such as the [employer] [place] [employer]'s [place] from Smoking program. ?? Set a quit date. Pick your date carefully so that it is not right in the middle of a big deadline or stressful time. Once you quit, do not even take a puff. Get rid of all ashtrays and lighters after your last cigarette. Clean your house and your clothes so that they do not smell of smoke. ?? Learn how to be a nonsmoker. Think about ways you can avoid those things that make you reach fora cigarette. ?? Avoid situations that put you [...] nicotine replacement therapy, which replaces the nicotine in your body. You still get nicotine but you do not use tobacco. Nicotine replacement products help you slowly reduce the amount of nicotine you need. These products come in several forms, many of them available [id number]: ?? Nicotine patches ?? Nicotine gum and lozenges ?? Nicotine inhaler ?? Ask your doctor about bupropion (Wellbutrin) or varenicline (Chantix), which are prescription medicines. They do not contain nicotine. They help you by reducing withdrawal symptoms, such as stressand anxiety. ?? Some people find hypnosis, acupuncture, and massage helpful for ending the smoking habit. ?? Eat a healthy diet and get regular exercise. Having healthy habits will help your body move pastits craving for nicotine. ?? Be prepared to keep trying. Most people are not successful the first few times they try to quit.Do not get mad at yourself if you smoke again. Make a list of things you learned and think about when you want to try again, such as next week, next month, or next year. Where can you learn more? Visit our health information library at [email or web address]. You can alsoview health information on [employer], your personal patient account. Log in or sign up today. Enter Y522 in the search box to learn more about Stopping Smoking: After Your Visit. ?? [phone] [employer]. Care instructions adapted under license by [facility]. This care instruction is for use with your licensed healthcare professional. If you have questions about a medical condition or this instruction, always ask your healthcare professional. [employer] disclaims any warranty or liability for your use of this information. Content Version: 9.1.655013; Last Revised: May 20, 2011 documented in this encounter Progress Notes * Saleem Chanel PA - 12/23/2012 11:24 AM EST Chief Complaint: [...] at L5-S1. I suggested attempting physical therapy herewith a Enoch based approach and we also prescribed a Medrol Dosepak. She indicates of the MedrolDosepak did not provide substantial improvement. She does find that physical therapy has helped significantly but has yet to completely resolve his symptoms. Her primary care physician does prescribeher Vicodin as concerns at the patient is [...] bring her pain up to a 10/10. She does not report any bowel or [...] female who is alert and oriented x3. Sheemulates with a nonantalgic gait and was able [...] and we also briefly discussed the functional baptism program. It sounds as if she is functioning fairly normal and the program may not be appropriate for her at thistime. We did review the benefits and issues with injections versus taking narcotic medications. Shehas no interest in using injections as a treatment option at this time and since injections are elected I think there is no need to proceed in this manner. There is also no way to state that the injection will resolve her pain and is not going to resolve the pain permanently. Based on the minimal amount of narcotic use this she is taking no more [...] therapist here the spine center sometime around January, to make it through the winter season and make sure mechanically she is still progressing. Otherwise I can followup with her as needed at this time. This dictation was performed using [employer] recognition dictation. documented in this encounter Plan of Treatment Not on file documented as of this encounter Visit Diagnoses Diagnosis Mechanical low back pain- Primary Lumbago documented in this encounter Care Teams Bundle Helper Relationship Specialty Start Date End Date Alissa Reynolds PA [address] [place] [address] PCP - General 12/23/12 06/18/20 documented as of this encounter
--- OUTSIDE RECORDS SUMMARY | 2024-06-13 14:59 | XMS_ITS | Encounter Summary ---
Author [place] [address] Care Team Providers Care Track Liner Operator Name Role Phone Nikki Sheridan APRN Primary Care Provider [phone] Encounter Details Date Type Department Care Team (Late st Contact Info) Description 07/27/2012 Abstract [facility] [place] [id number] Carissa Camp, CHAVEZ Social History Tobacco Use Types Packs/Day Years Used Date Smoking Tobacco: Never Assessed Sex and Gender Information Value Date Recorded Sex Assigned at Not on file Gender Identity Not on file Sexual Orientation Not on file documented as of this encounter Plan of Treatment Not on file documented as of this encounter Visit Diagnoses Not on filedocumented in this encounter Care Teams Track Liner Operator Relationship Specialty Start Date End Date Nikki Sheridan APRN PCP - General 07/29/12 12/22/12 documented as of this encounter
--- OUTSIDE RECORDS SUMMARY | 2024-06-13 14:59 | XMS_ITS | Encounter Summary ---
Author Organization [facility] [place] [address] Care Team Providers Care Reproduction Artist Name Role Phone Alissa Reynolds Primary Care Provider [phone]- [phone] Encounter Details Date Type Department Care Team (Late st Contact Info) Description 10/07/2016 [place] [address] [place] [address] Flank pain Social History Tobacco Use Types Packs/Day Years Used Date Smoking Tobacco: Every Day Cigarettes 1 15 Smokeless Tobacco: Never Comments:smoking 0.5ppd-1ppd - pcp prescibed chantix- has at home when has quit date Sex and Gender Information Value Date Recorded Sex Assigned at Not on file Gender Identity Not on file Sexual Orientation Not on file documented as of this encounter Miscellaneous Notes * Addendum Note - Alli Fay MD - 10/07/2016 10:15 PM ESTAddended by: ALLI FAY on: 10/07/2016 10:15 PM Modules accepted: Orders documented in this encounter Plan of Treatment Not on file documented as of this encounter Visit Diagnoses Diagnosis Flank pain Abdominal pain, unspecified site documented in this encounter Care Teams Reproduction Artist Relationship Specialty Start Date End Date Alissa Reynolds PA [address] [place] [address] PCP - General 12/23/12 06/18/20 documented as of this encounter
--- OUTSIDE RECORDS SUMMARY | 2024-06-13 14:59 | XMS_ITS | Encounter Summary ---
[place] [address] Care Team Providers Care Supervisor Shearing Name Role Phone Unavailable Primary Care Provider Unavailabl e Encounter Details Date Type Department Care Team (Latest Contact Info) Description 04/02/2009 - 04/02/2009 11:59 PM EDT Hospital Encounter [place] [address] [place] [address] Pain Discharge Disposition: Home Social History Tobacco Use Types Packs/Day Years Used Date Smoking Tobacco: Never Assessed Sex and Gender Information Value Date Recorded Sex Assigned at Not on file Gender Identity Not on file Sexual Orientation Not on file documented as of this encounter Plan of Treatment Not on file documented as of this encounter Procedures Procedure Name Priority Date/Time Associated Diagnosis Comments FILM LIBRARY STORAGE ONLY CT ABDOMEN AND PELVIS Routine 04/02/2009 12:00 AM EDT Pain documented in this encounter Results * Film Library- Storage Only CT Abdomen & Pelvis (04/02/2009 12:00 AM EDT) Narrative [facility] - 10/07/2016 9:47 PM EST This exam is for storage only and is auto-finalizing. Joshua Zuluaga MD G FILM LIBRARY ORD ERABLES [place], [place] documented in this encounter Visit Diagnoses Diagnosis Pain Generalized pain documented in this encounter
--- OUTSIDE RECORDS SUMMARY | 2024-06-13 14:59 | XMS_ITS | Clinical Summary ---
Author Organization [facility]ending [facility] Address [facility] [place] [address] Care Team Providers Care Auto Cleaner Name Role Phone Unknown Primary Care Provider Unavailabl e Allergies No known active allergies Medications Medication Sig Dispensed Refills Start Date End Date Status hydroCODone-acetami nophen (VICODIN) 5-500 mg per tablet Take 1 tablet by mouth 3 times daily as needed. Active triamcinolone (ARISTOCORT) 0.5 % cream Apply topically 2 times daily. Active naproxen (NAPROSYN) 500 mg tablet Take 500 mg by mouth 2 times daily (with meals). Active levalbuterol (XOPENEX) 0.63 mg/3 mL nebulizer solution Take 1 ampule by nebulization as needed. Active CRESTOR 10 mg Tablet 0 10/28/2016 Active Active Problems Problem Noted Date Diagnosed Date Spider angioma 02/01/2017 Thoracic back pain 05/12/2013 Mechanical low back pain 07/29/2012 Social History Tobacco Use Types Packs/Day Years Used Date Smoking Tobacco: Every Day Cigarettes 1 15 Smokeless Tobacco: Never Tobacco Cessation:Ready to Q uit: No; Counseling Given: Yes Comments:smoking 0.5ppd-1ppd- pcp prescibed chantix- has at home when has quit date Sex and Gender Information Value Date Recorded Sex Assigned at Not on file Gender Identity Not on file Sexual Orientation Not on file Last Filed Vital Signs Vital Sign Reading Time Taken Comments Blood Pressure 110/72 06/05/2013 9:50 AM EDT Pulse 76 06/05/2013 9:50 AM EDT Temperature - - Respiratory Rate - - Oxygen Saturation - - Inhaled Oxygen Concentration - - Weight 81.6 kg (180 lb) 06/19/2013 11:23 AM EDT Height 168.9 cm (5' 6.5) 06/19/2013 11:23 AM ED T Body Mass Index 28.62 06/19/2013 11:23 AM EDT Plan of Treatment Health Maintenance Due Date Last Done Comments HIV screen 2000 Hepatitis C Screening 2000 Hepatitis B vaccine (0-59 yrs) (1) 2001 Tdap adult 2001 Tetanus vaccine 2001 HPV test 2012 PAP Smear 2012 Breast Cancer Share Decision Needed 2022 Breast Cancer screening 2022 Covid-19 Vaccine ( - season) 2023 Influenza (Flu) vaccine (1 o f 1 - Influenza standard series) 07/02/2024 Care Teams Auto Cleaner Relationship Specialty Start Date End Date Unknown None PCP - General 06/19/20
--- OUTSIDE RECORDS SUMMARY | 2024-06-13 14:59 | XMS_ITS | Encounter Summary ---
Author Organization [facility] Address [facility] [place] [address] Care Team Providers Care Pediatric Physical Therapy Assistant Name Role Phone Juanis Irving MD Primary Care Provider [phone] Encounter Details Date Type Department Care Team (Late st Contact Info) Description 07/02/2012 External Results XRay at [address] [place] [address] Alissa Reynolds PA [address] [place], [place] [address] Social History Tobacco Use Types Packs/Day Years Used Date Smoking Tobacco: Never Assessed Sex and Gender Information Value Date Recorded Sex Assigned at Not on file Gender Identity Not on file Sexual Orientation Not on file documented as of this encounter Plan of Treatment Not on file documented as of this encounter Procedures Procedure Name Priority Date/Time Associated Diagnosis Comments MRI/MRA SCAN Routine 06/29/2012 documented in this encounter Results * Scan Doc: MRI/MRA (06/29/2012) Anatomical Region Laterality Modality Other Alissa ANDERS MEDIA MGR SCAN EXT ORDR/RSLT documented in this encounter Visit Diagnoses Not on filedocumented in this encounter Care Teams Pediatric Physical Therapy Assistant Relationship Specialty Start Date End Date Juanis Irving MD [address] [place], [place] [address] PCP - General 09/23/10 07/28/12 documented as of this encounter
--- OUTSIDE RECORDS SUMMARY | 2024-06-13 14:59 | XMS_ITS | Encounter Summary ---
Author [place] [address] Care Team Providers Care Slot Shift Manager Name Role Phone Alissa Reynolds Primary Care Provider [phone] Encounter Details Date Type Department Care Team (Latest Contact Info) Description 10/07/2016 - 10/07/2016 9:50 PM EST Hospital Encounter [place] [address] [place] [address] Pain Discharge Disposition: Home Social History Tobacco [...] STORAGE ONLY CT ABDOMEN AND PELVIS Routine 10/07/2016 12:00 AM EST Pain documented in this encounter Results * Film Library- Storage Only CT Abdomen & Pelvis (10/07/2016 12:00 AM EST) Narrative [facility] - 10/07/2016 9:34 PM EST This exam is for storage only and is auto-finalizing. Joshua Zuluaga MD IMG FILM LIBRARY ORD ERABLES Performing Organization Address City/State/[facility] Co de Phone Number [place], [place] documented in this encounter Visit Diagnoses Diagnosis Pain Generalized pain documented in this encounter Care Teams Slot Shift Manager Relationship Specialty Start Date End Date Alissa Reynolds PA [address] [place] [address] PCP - General 12/23/12 06/18/20 documented as of this encounter
--- OUTSIDE RECORDS SUMMARY | 2024-06-13 14:59 | XMS_ITS | Data Portability ---
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 subcutaneou s pen injector Inject 0.25mg SC weekly x 4 weeks then increase to 0.5mg SC weekly 12/23 completed Not Available Not Available Not Available Biofreeze (menthol) 10 % topical cream applys to back, neck, elbows as needed for pain active Not Available Not Available No t Available Ozempic 0.25 mg or 0.5 mg (2 mg/3 mL) subcutaneou s pen injector 03/15 completed Not Available Not Available Not Available Vitals Date Recorded Body height Oxygen saturation Oxygen saturation in Arterial blood by Pulse oximetry Heart rate Body mass index (BMI) Body weight Systolic blood pressure Diastolic blood pressure Provider Name and Address Organization Details Last Updated DateTime 4 167.894 cm 96 % 96 % 85 /min 28 kg/m2 27447.0 7 g 120 mm[Hg] 70 mm[Hg] HENRY HAZEL MA [facility] - [facility] 4 07:37:34 Date Recorded Body height Oxygen saturation Oxygen saturation in Arterial blood by Pulse oximetry Heart rate Body mass index (BMI) Body weight Systolic blood pressure Diastolic blood pressure Provider Name and Address Organization Details Last Updated DateTime 4 167.894 cm 97 % 97 % 78 /min 31.8 kg/m2 28048.1 3 g 146 mm[Hg] 90 mm[Hg] Filipe Rossi MA [facility] 4 15:09:36 Date Recorded Body height Body mass index (BMI) Body weight Heart rate Systolic blood pressure Diastolic blood pressure Provider Name and Address Organization Details Last Updated DateTime 4 167.894 cm 31.6 kg/m2 61237.5 g 68 /min 144 mm[Hg] 90 mm[Hg] GAUTAM MENDOZA LPN [facility] 4 07:41:50 Social History Question Answer Notes LastModified by Organizat ion Details LastModified Time Tobacco Smoking Status Current Every Day Smoker HENRY HAZEL MA [facility], [facility] 11/19/2023 07:39:55 What Was The Date Of Your Most Recent Tobacco Screening? 11/19/2023 Information not available 11/19/2023 What Is Your Current Pack Years? 20-29packyea rs Information not available 11/19/2023 At What Age Did You Start Smoking Tobacco? 22 Information not available 11/19/2023 How Much Tobacco Do You Smoke? 0.5 PPD Information not available 11/19/2023 Has Tobacco Cessation Counseling Been Provided? No Information not available 11/19/2023 Do You Or Have You Ever Used Any Other Forms Of Tobacco Or Nicotine? No Information not available 11/19/2023 Sex: Female Functional Status None recorded. Mental Status None recorded. Family History Relationship Description Onset Age of this Age Resolved Age Notes Father Family history of pr emature coronary heart disease Father Family history of Hypercholesterolemia Father Family history of Hypertension Mother Family history of di abetes mellitus type 1 Unspecified Relation Family history of breast cancer 1 gene mutation MGGM Notes:*Problem: 1/2 Sister x 1: L&W without ongoing medical issues Brotherx 1: L&W without ongoing medical issues Medical History No medical history recorded. Gynecological HistoryNo gynecological history recorded. Obstetrics History GPAL:G 0 P 0 0 0 0 Immunizations Vaccine Type Date Status Provider Name and Address Organization Details Recorded Time Td (adult), 2 Lf tetanus toxoid, preservative free, adsorbed 08/25/2019 completed Not Available [facility] 09/10/2023 06:21:12 Tdap 12/12/2008 completed Not Available [facility] 06:21:12 Influenza, split virus, trivalent, preservative 07/24/2016 completed Not Available [facility] 09/10/2023 06:21:12 Influenza, split virus, quadrivalent, PF 08/25/2019 completed Not Available [facility] 09/10/2023 06:21:12 Influenza, split virus, quadrivalent, PF 08/27/2020 completed Not Available [facility] 09/10/2023 06:21:12 Influenza, split virus, quadrivalent, PF 09/26/2021 completed Not Available [facility] 09/10/2023 06:21:12 Influenza, split virus, quadrivalent, PF 10/27/2022 completed Not Available [facility] 09/10/2023 06:21:12 Influenza, split virus, quadrivalent, preservative 07/26/2017 completed Not Available [facility] 09/10/2023 06:21:12 Influenza, split virus, quadrivalent, preservative 07/26/2018 completed Not Available [facility] 09/10/2023 06:21:13 COVID-19, mRNA, LNP-S, PF, 100 mcg/0.5mL dose or 50 mcg/0.25mL dose 12/06/2020 completed Not Available [facility] 09/10/2023 06:21:13 COVID-19, mRNA, LNP-S, PF, 100 mcg/0.5mL dose or 50 mcg/0.25mL dose 02/03/2021 completed Not Available [facility] 09/10/2023 06:21:13 COVID-19, mRNA, LNP-S, PF, 100 mcg/0.5mL dose or 50 mcg/0.25mL dose 09/26/2021 completed Not Available [facility] 09/10/2023 06:21:13 pneumococcal polysaccharide PPV23 10/03/2013 completed Not Available [facility] 2022 06:21:13 influenza, unspecified formulation 07/31/2015 completed Not Available [facility] 09/10/2023 06:21:13 influenza, unspecified formulation 08/27/2014 completed Not Available [facility] 09/10/2023 06:21:13 Influenza, split virus, quadrivalent, PF 08/13/2023 completed Not Available [facility] 11/12/2023 05:31:11 Past Encounters Encounter ID Performer Location Encounter Start Date Encounter Closed Date Diagnosis/Indication Diagnosis SNOMED-CT Code [id number] [facility] [address] [address] 11/19/2023 07:28:44 11/19/2023 08:12:20 Prediabetes 573924433 Low back pain 215620419 Steatosis of liver 1007 Hyperlipidemia 06621537 Essential hypertension 73586612 Smoker [id number] [facility] ZULEYKA [address] [address] 03/15/2024 14:42:38 03/15/2024 16:05:13 Prediabetes 063363864 Steatosis of liver 1007 Hyperlipidemia 35901535 Essential hypertension 24739621 Low back pain 718661627 Laryngitis 49839812 Skin lesion [id number] [facility] ZU[facility]KA [address] [address] 06/13/2024 07:28:51 06/13/2024 08:16:06 Low back pain 748261087 Prediabetes 553287541 Steatosis of liver 1007 Hyperlipidemia 16190330 Essential hypertension 46354828 Health Concerns Section Related Observation LastModified by Organization Detai ls LastModified Time None Recorded Concern Status LastModified by Organization Details LastModified Time None Recorded Advance Directives Directive None Recorded Payers Encounter Date Sequence Insurance Name Policy Number Policy Zazueta Covered Member ID Zazueta Member ID Guarantor Name 11/19/2023 [facility] [id number] Kathaleena I Blaa 03/15/2024 1 [facility] Kathaleena I Bala [id number] Kathaleena I Bala 06/13/2024 1 [facility] Kathaleena I Bala [id number] Kathaleena I Bala Notes Date Note Type Note Provider Name and Address Organization Details Recorded Time 11/19/2023 text/html HPI Notes: 43y/o female presenting for 3m f/u chronic pain, FLD, HPL, HTN, and preDM. [address], [facility] [address], [facility] 11/19/2023 10:16:05 03/15/2024 text/html HPI Notes: 43y/o female presenting for 3m f/u chronic pain, FLD, HPL, HTN, and preDM. [address], [place], [address], [facility], [facility] 03/15/2024 16:08:11 06/13/2024 text/html HPI Notes: 44y/o female presenting for 3m f/u chronic pain, FLD, HPL, HTN, and preDM. [address], [place], [address], [facility] 06/13/2024 08:27:45 OBGyn Episode No OBEpisode recorded.
--- OUTSIDE RECORDS SUMMARY | 2024-06-13 14:59 | XMS_ITS | Encounter Summary ---
Author Organization [facility] [place] [address] Care Team Providers Care Scoreboard Operator Name Role Phone Alissa Reynolds Primary Care Provider [phone]- [phone] Encounter Details Date Type Department Care Team (Late st Contact Info) Description 06/15/2019 Ancillary Procedure Radiology at [address] [place] [address] Rachel Xiao MD [address] [place] [address] [place] [address] Social History Tobacco Use Types Packs/Day Years [...] Associated Diagnosis Comments FILM LIBRARY STORAGE ONLY MR SPINE Routine 06/15/2019 12:00 AM EDT documented in this encounter Results * Film Library- Storage Only MR Spine (06/15/2019 12:00 AM EDT) Narrative [facility] RAD - 06/28/2019 3:16 PM EDT This exam is auto-finalizing. It's purpose is for storage only. Rachel Xiao MD IMG FILM LIBRARY ORD ERABLES [facility] [place], [place] documented in this encounter Visit Diagnoses Not on filedocumented in this encounter Care Teams Scoreboard Operator Relationship Specialty Start Date End Date Alissa Reynolds PA [address] [place] [address] PCP - General 12/23/12 06/18/20 documented as of this encounter
--- OUTSIDE RECORDS SUMMARY | 2024-06-13 14:59 | XMS_ITS | Encounter Summary ---
[place] [address] Care Team Providers Care Hemstitcher Name Role Phone Alissa Reynolds Primary Care Provider +1- [phone] Reason for Visit * Reason Comments Back Pain Encounter Details Date Type Department Care Team (Late st Contact Info) Description 02/03/2013 10:00 AM EDT Office [place] [address] Rachna Almendarez, PT [facility] Nikki Sheridan APRN [address] [place], [place] [phone] Juanis Irving MD [address] [place], [place] [phone] Mechanical low back pain (Primary Dx) Discharge [...] documented as of this encounter Progress Notes * Rachna Almendarez, PT - 02/03/2013 11:01 AM [...] pain extending from T11 to S1, right greaterthan left. There is intermittent numbness and tingling in the right buttocks and the lateral aspectof the right thigh and no weakness. The [...] lumbar spine once again revealed a directional prefer ence toward flexion. Treatment Received: Discussed the natural history of mechanical low back pain and the rational for exercise based treatment. Patient Education/ Home Exercise Program: Reviewed and modified Ms. Hernandez 's home exercise program. The home exercise program now includes extension in lying, superman, alternate arm and leg lift in prone, plank, phase 1 curl ups, phase 1 [...] the pain. Assessment: Ms. Renees pain intensity seems to be improving and she is ready to progress the home exercise program. Goals: Able to perform the home exercise program independently. Able to sleep through the night. 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 Able to stand and walk without discomfort. Plan: Follow up in 4 weeks to reassess and progress the home exercise program. Ms. Hernandez was encouraged to call with any questions or concerns regarding todays visit or the home exercise program. Length of visit: A total of 45 minutes was spent re-assessing, treating, and instructing Joey Hernandez in a home exercise program. documented in this encounter Plan of Treatment Not on file documented as of this encounter Visit Diagnoses Diagnosis Mechanical low back pain- Primary Lumbago documented in this encounter Care Teams Hemstitcher Relationship Specialty Start Date End Date Alissa Reynolds PA [address] [place] [address] PCP - General 12/23/12 06/18/20 documented as of this encounter
--- OUTSIDE RECORDS SUMMARY | 2024-06-13 14:59 | XMS_ITS | Encounter Summary ---
Author Organization [facility] [place] [address] Care Team Providers Care Assistant Manager Pt Name Role Phone Alissa Reynolds Primary Care Provider +1- [phone] Encounter Details Date Type Department Care Team (Latest Contact Info) Description 06/19/2013 8:01 AM EDT - 06/19/2013 11:59 PM EDT Hospital [place] [address] Mechanical low back pain; Thoracic back pain [...] Name Priority Date/Time Associated Diagnosis Comments MRI THORACIC SPINE WITHOUT CONTRAST Routine 06/19/2013 8:45 AM EDT Mechanical low back pain Thoracic back pain documented in this encounter Results * MRI thoracic spine without contrast (06/19/2013 8:45 AM EDT) Anatomical Region Laterality Modality T-spine Magnetic Resonan ce 06/19/2013 8:45 AM EDT Narrative 06/19/2013 9:30 [...] spine documented in this encounter Care Teams Assistant Manager Pt Relationship Specialty Start Date End Date Alissa Reynolds PA [address] [place] [address] PCP - General 12/23/12 06/18/20 documented as of this encounter
--- OUTSIDE RECORDS SUMMARY | 2024-06-13 14:59 | XMS_ITS | Encounter Summary ---
Author Organization [facility] [place] [address] Care Team Providers Care It Project Manager Name Role Phone Alissa Reynolds Primary Care Provider +1- [phone] Reason for Visit * Reason Onset Date Comments Other 06/01/2013 Encounter Details Date Type Department Care Team (Late st Contact Info) Description 06/01/2013 Telephone [place] [address] Bernie Moore, [facility] [place] [address] Other Social History Tobacco Use Types Packs/Day Years Used Date Smoking Tobacco: Every Day Cigarettes 1 15 Smokeless Tobacco: Never Comments:smoking 0.5ppd-1ppd - pcp prescibed chantix- has at home when has quit date Sex and Gender Information Value Date Recorded Sex Assigned at Not on file Gender Identity Not on file Sexual Orientation Not on file documented as of this encounter Miscellaneous Notes * Telephone Encounter - Bernie Moore MSW - 06/01/2013 3:11 PM EDT OFFICE OF CARE MANAGEMENT [facility] Telephone call from Ms. Hernandez wondering about documentation for her workers compensation claim. She confirms a report of injury was filed but she was told they're not going to do anything about it. She wondered if medical documentation might help. Suggested she contact the [place] Dept [employer] ph to identify grounds for denial and process and requirements for appeal and perhaps wecan help her with this information. Ms. Hernandez is agreeable and identifies no further questions. I have wished her well and encouraged her to recontact us at any time. documented in this encounter Plan of Treatment Not on file documented as of this encounter Visit Diagnoses Not on filedocumented in this encounter Care Teams It Project Manager Relationship Specialty Start Date End Date Alissa Reynolds PA [address] [place] [address] PCP - General 12/23/12 06/18/20 documented as of this encounter
--- OUTSIDE RECORDS SUMMARY | 2024-06-13 14:59 | XMS_ITS | Encounter Summary ---
[place] [address] Care Team Providers Care Trim Machine Operator Name Role Phone Nikki Sheridan APRN Primary Care Provider [phone] Reason for Visit * Reason Comments Low Back Pain Encounter Details Date Type Department Care Team (Late st Contact Info) Description 09/16/2012 10:00 AM EST Office [place] [address] Rachna Almendarez, PT [facility] Saleem Chanel PA [facility] [place] [address] Nikki Sheridan APRN [address] [place], [place] [phone] Juanis Irving MD [address] [place], [place] [phone] Mechanical low back pain (Primary Dx) Discharge [...] Progress Notes * Rachna Almendarez, PT - 09/16/2012 11:25 AM EST Beck Hernandez was [facility] consult at the request of Saleem ANDERS. She was seen with the [...] Past treatments directed to the low back have included medications, physical therapy, and 3 courses of oral steroids. Unfortunately, none of these treatments have provided her with lasting. A recent MRI revealed a degenerative disc changes atL5-S1, a small of right lateral recess disc [...] position and activity frequently or takes her medications. Sleep is disturbed, but less so than in the past. She reports limping when the pain is severe. Ms. Hernandez's functional self care goal includes learning effective self-care strategies and to develop a home exercise program. 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 She smokes 1 pack of cigarettes per day, drinks alcohol rarely,and is currently not involved in a structured exercise program. Physical Exam: Ms. Hernandez is a pleasant 32 y.o. female who moves about in the exam room without difficulty and appears comfortable while seated. Sitting posture is poor and standing posture is good. Examination of the low back in the standing position reveals a normal lumbar lordosis and there isnot a lateral shift of the lumbar spine on the pelvis. Active range of motion of the lumbar spine is limited to 70?? flexion and 20?? extension. Midline extension and extension combined with right orleft sidebending worsens the pain. Gait is unremarkable. [...] program by using her treadmill and elliptical obedience trainer. In addition, I reviewed self-care strategies such as flexion in lying, flexion in sitting, flexion in standing, posterior pelvic tilt while standing, leaning against the wall, perching, placing the foot on a step, and walking with trekking poles as needed throughout the day to relieve the pain. Along with the prescribed exerc ises, we discussed the principles of symptom self monitoring and posture correction. She will call with any questions, concerns, or if the pain worsens. Ms. Hernandez will return to [facility] for a follow up appointment in 3 weeks time with the hope that she is ready to progress her home exercise program. 50 minutes were spent interviewing, assessing, and instructing Beck Hernandez in a home exercise program. documented in this encounter Plan of Treatment Not on file documented as of this encounter Visit Diagnoses Diagnosis Mechanical low back pain- Primary Lumbago documented in this encounter Care Teams Trim Machine Operator Relationship Specialty Start Date End Date Nikki Sheridan APRN PCP - General 07/29/12 12/22/12 documented as of this encounter
--- OUTSIDE RECORDS SUMMARY | 2024-06-13 14:59 | XMS_ITS | Encounter Summary ---
Author Organization [facility] Address [facility] [place] [address] Care Team Providers Care Corrective Therapy Aide Teacher Name Role Phone Alissa Reynolds Primary Care Provider [phone]- [phone] Reason for Referral * Psychiatric (Routine) - Closed Specialty Diagnoses / Procedures Referred By Contac t Referred To Contact Psychiatry Diagnoses Mechanical low back pain Thoracic back pain [facility] [place] [address] [address] Sobeida Iniguez, PhD [facility] [place] [address] Referral ID Status Reason Start Date Expiration Date V isits Requested Visits Authorized [id number] Closed Assume Subset of Care 06/19/2013 12/16/2013 1 1 Reason for Visit * Reason Comments Back Pain Encounter Details Date Type Department Care Team (Late st Contact Info) Description 06/19/2013 10:50 AM EDT Office [place] [address] CLINIC, Saleem Swanson PA [facility] [place] [address] Mechanical low back pain (Primary Dx); Thoracic back pain Discharge Disposition: Home Social History Tobacco Use [...] EDT documented in this encounter Patient Instructions * Patient Instructions* Viky Khan, NAZARIO - 06/19/2013 11:24 AM EDT Welcome to [facility], your secure online access to your electronic medical record at [facility]. Using [facility] [employer] you will be able to send messages to your providers, view your test results, renew prescriptions, schedule appointments, and much more. Follow these instructions to enter your personal [facility] account for the first time: 1. Start your internet browser and type [email or web address] into the address bar. 2. In the New User box on the right-hand side of the Welcome page click the link that states, ???I have an activation code.?? 3. On the Identification page, follow these steps: a) Enter your [facility] activation code: [email or web address] b) Expires: 08/03/2013 11:24 AM IMPORTANT: This Activation Code will on the above mentioned date. If you do not sign up for [facility] by this date, you will need to request another activation code. c) Enter your date of , using the calendar tool provided. d) Enter your Zip code. e) Select ???submit?? to go to the next page. 4. On the Create Account page, follow these steps: a) Create a [facility] username. This can???t be changed, so choose one you won???t forget. b) Create a password that???s at least six characters long, and that contains at least two numbers.Your password can be changed at any time. [...] or your Access Code, please call for [place], for [place] or for [place]. If you need technical support, please e-mail [email or web address]. Remember, [facility]-[facility] is NOT for urgent needs! Always dial 911 for medical emergencies. documented in this encounter Progress Notes * Saleem Chanel PA - 06/19/2013 11:58 AM [...] found some relief, and continues to do herhome exercise program. There were some problems related to needing time out of work and her primarycare physician referred her back to the spine center. Her pain is primarily in the lower lumbar spine but she does get some pain in the lower thoracic spine as well. She does not describe radicular pain symptoms but does indicate recently she's got a little bit of right buttock pain with some tingli ng sensations in the right groin. I did [...] with a small amount of extruded nature of migrating caudally towards the left, and it does [...] may be slightly greater disc bulging at L5-S1.Talking with the patient she does not have an interest in injections which we have discussed beforeand I see no clear surgical indications although she is also not interested in this treatment option either. I reviewed the option of the functional orthodox program, but she does not feel she could attend this program at this time. She also does not want to continue further physical therapy in the spine center as she is continuing her home exercise program. At this time I am limited in the spine center for treatment options on this patient. It appears that her primary interest is to be ableto periodically have it out of work note when her back pain is flaring up, which I think can be done locally through her primary care physician rather than make [...] my card if there are any questions or concerns. This dictation was performed using rPath voice recognition dictation. documented in this encounter Miscellaneous Notes * Miscellaneous - Provider, Scanning - 07/05/2013 9:49 AM EDT documented in this encounter Plan of Treatment Scheduled Referrals Name Type Priority Associated Diagnoses Order Schedule Referral to Psychiatry Outpatient Referral Routine Mechanical low back pain Thoracic back pain Ordered: 06/19/2013 documented as of this encounter Visit Diagnoses Diagnosis Mechanical low back pain- Primary Lumbago Thoracic back pain Pain in thoracic spine documented in this encounter Care Teams Corrective Therapy Aide Teacher Relationship Specialty Start Date End Date Alissa Reynolds PA [address] [place] [address] PCP - General 12/23/12 06/18/20 documented as of this encounter
--- OUTSIDE RECORDS SUMMARY | 2024-06-13 14:59 | XMS_ITS | Encounter Summary ---
[place] [address] Care Team Providers Care Title Agent Name Role Phone Alissa Reynolds Primary Care Provider [phone]- [phone] Reason for Visit * Reason Onset Date Comments Questions 05/23/2013 re request from [facility] Encounter Details Date Type Department Care Team (Late st Contact Info) Description 05/23/2013 Telephone [place] [phone] Adina Zapata, RN Questions (re request from [facility]) Social History Tobacco Use Types Packs/Day Years [...] encounter Miscellaneous Notes * Telephone Encounter - Adina Zapata, RN - 05/23/2013 3:33 PM EDT Received call from pt subsequent to initial call this am whereby pt was advised that the paperwork received from [facility] was faxed to them 05/18/13. Pt requesting copy of that paper work. Patient also identified that additional information was being sought from [facility], attention Marina Kirby. Call placed to Marina to obtain letter that was reportedly sent. Upon reciept; call placed to pt to discuss the letter along with follow-up discussion with Saleem Chanel. Reviewed with pt need for test and measures and an allowance of a two wk time block at 2 days per week with the accommodations allowed by work place (no lifting and in-town driving <30miles per day). E xplained that after two weeks 06/05 we would release her to 5 days per week with the continued accommodations unless WRAP indicated otherwise. Letter from [facility] to be scanned; notation made on scanned document referencing e- letter dated today 05/23 which was faxed in response. Patient mailed copy of the 05/23 letter, documented in this encounter Plan of Treatment Not on file documented as of this encounter Visit Diagnoses Not on filedocumented in this encounter Care Teams Title Agent Relationship Specialty Start Date End Date Alissa Reynolds PA [address] [place] [address] PCP - General 12/23/12 06/18/20 documented as of this encounter
--- OUTSIDE RECORDS SUMMARY | 2024-06-13 14:59 | XMS_ITS | Encounter Summary ---
Author Organization [place] [address] Care Team Providers Care Petroleum Supply Specialist Name Role Phone Alissa Reynolds Primary Care Provider [phone]- [phone] Reason for Visit * Reason Comments Skin Lesion neck and forehead Encounter Details Date Type Department Care Team (Late st Contact Info) Description 12/22/2016 3:45 PM EST Office Visit Dermatology at [address] [place] [address] Willy Maya MD [address] [facility], [place] [address] Spider angioma Social History Tobacco Use Types [...] as of this encounter Progress Notes * Willy Maya MD - 12/22/2016 3:45 PM [...] non-neoplastic documented in this encounter Care Teams Petroleum Supply Specialist Relationship Specialty Start Date End Date Alissa Reynolds PA [address] [place] [address] PCP - General 12/23/12 06/18/20 documented as of this encounter
--- OUTSIDE RECORDS SUMMARY | 2024-06-13 14:59 | XMS_ITS | Encounter Summary ---
Author Organization [facility] [place] [address] Care Team Providers Care Residential Treatment Counselor Name Role Phone Unknown Primary Care Provider Unavailabl e Encounter Details Date Type Department Care Team (Late st Contact Info) Description 08/08/2009 Orders Only Dermatology at [place] [address] [facility] [place] [phone] Willy Maya MD [address] [facility] [address] [address] [place] [address] Social History Tobacco Use Types Packs/Day Years Used Date Smoking Tobacco: Never Assessed Sex and Gender Information Value Date Recorded Sex Assigned at Not on file Gender Identity Not on file Sexual Orientation Not on file documented as of this encounter Plan of Treatment Not on file documented as of this encounter Procedures Procedure Name Priority Date/Time Associated Diagnosis Comments SURGICAL PATHOLOGY REPORT Routine 08/08/2009 6:02 PM EDT documented in this encounter Results * Surgical Pathology Report (08/08/2009 6:02 PM EDT) Surgical Pathology Report [id number] ? Location: [facility] The signing pathologist has (i) examined the relevant preparation(s) for the specimen(s) and (ii) rendered or confirmed the diagnosis(es). . ?Pathology Surgical Pathology Final Report Clinical Information Specimen Submitted: A - (L) posterior shoulder, Excision: Clinical History: atypical nevus incompletely excised Magdaleno Goncalves [id number] Clinical Diagnosis: Scar Report to: Willy Maya MD, [facility] [place]at[place], [place] ??[address] Gross Description Labeled/Fixative : ? L posterior shoulder, formalin. Qty/Size/Weight: ?Single, 1.9 x 1.2 x 0.7 cm. Tissue Description: ?? Ellipse of pale, dozier-white skin. ??There is a ?central, slightly raised and folded, dozier-white area of scarring, 1.2 x 0.4 cm in greatest dimension. ??The specimen is NOT oriented. Sections/Process ing: ??The specimen is inked and serially sectioned. ?The ends are submitted in (1); the remainder of ?the specimen submitted in (2-3). (T3) ??vms/PPS Microscopic Description Slides reviewed, microscopic description not recorded. Diagnosis Skin, left posterior shoulder, excision: ?? 1. ??Scar, consistent with prior surgical procedure. ?? 2. ??Focal melanocytic hyperplasia. There is no residual atypical ? melanocytic proliferation. CR-0 08/12/09 JLK 08/13/09 Verified by: ? Tucker COLINDRES, PhD, Jennifer ?Dermatopatholo gist ?(Electronic Signature) The attending pathologist whose signature appears on this report has reviewed all diagnostic slides and has edited the gross and/or microscopic portion of the report in rendering the final pathologic diagnosis. [facility] 08/08/2009 6:02 PM EDT Willy Maya MD [facility] documented in this encounter Visit Diagnoses Not on filedocumented in this encounter Care Teams Residential Treatment Counselor Relationship Specialty Start Date End Date Unknown None PCP - General 06/19/20 documented as of this encounter
--- OUTSIDE RECORDS SUMMARY | 2024-06-13 14:59 | XMS_ITS | Encounter Summary ---
Author [facility] [place] [address] Care Team Providers Care Watcher Lookout Tower Name Role Phone Juanis Irving MD Primary Care Provider [phone] Encounter Details Date Type Department Care Team (Late st Contact Info) Description 06/29/2012 Orders [place] [address] [facility] [place] [place] [address] Social History Tobacco Use Types Packs/Day Years [...] FILM LIBRARY STORAGE ONLY MR SPINE Routine 06/29/2012 12:25 PM EDT documented in this encounter Results * FILM LIBRARY- STORAGE ONLY MR SPINE (06/29/2012 12:25 PM EDT) 06/29/2012 12:2 5 PM EDT Narrative RAD - 05/15/2014 10:34 AM EDT This is a non-reportable exam. Procedure Note Justin Olmstead - 05/15/2014 This is a non-reportable exam. Saleem MALONE FILM LIBRARY ORD ERABLES RAD [address] [facility] [place] [address] documented in this encounter Visit Diagnoses Not on filedocumented in this encounter Care Teams Watcher Lookout Tower Relationship Specialty Start Date End Date Juanis Irving MD [address] [place] [address] PCP - General 09/23/10 07/28/12 documented as of this encounter
--- OUTSIDE RECORDS SUMMARY | 2024-06-13 14:59 | XMS_ITS | Encounter Summary ---
Author Organization [facility] [place] [address] Care Team Providers Care Machine Marker Name Role Phone Alissa Reynolds Primary Care Provider [phone] Reason for Visit * Reason Comments Follow-up Encounter Details Date Type Department Care Team (Late st Contact Info) Description 02/01/2017 3:30 PM EDT Office Visit Dermatology at [address] [place] [address] Willy aMya MD [address] [facility], [place] [address] Spider angioma Social History Tobacco Use Types [...] Progress Notes * Willy Maya MD - 02/01/2017 3:30 PM [...] p.r.n. Note: Would recommend formal consultation at [facility] if epilation therapy does not bring adequate treatment of her angiomas. CC: CHAGO Rain documented in this encounter Plan of Treatment Not on file documented as of this encounter Visit Diagnoses Diagnosis Spider angioma Nevus, non-neoplastic documented in this encounter Care Teams Machine Marker Relationship Specialty Start Date End Date Alissa Reynolds PA [address] [place] [address] PCP - General 12/23/12 06/18/20 documented as of this encounter
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
--- OUTSIDE RECORDS SUMMARY | 2024-06-13 14:59 | XMS_ITS | Encounter Summary ---
[place] [address] Care Team Providers Care Chlorinator Operator Name Role Phone Nikki Sheridan APRN Primary Care Provider [phone] Reason for Visit * Reason Comments Back Pain Encounter Details Date Type Department Care Team (Late st Contact Info) Description 10/10/2012 9:30 AM EST Office [place] [address] Rachna Almendarez, PT [facility] Nikki Sheridan APRN [address] [place], [place] [id number] Juanis Irving MD [address] [place], [place] [id number] Mechanical low back pain (Primary Dx) Discharge [...] Progress Notes * Rachna Almendarez, PT - 10/10/2012 12:57 PM EST Spine Center Physical Therapy Note Referring provider: Saleem ANDERS Diagnosis: mechanical low back pain Date of onset: April 2012 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 Hernandez reports since her last appointment here in the Spine Center she had a tubal ligation and has also done a lot of coughing related to bronchitis. The pain has as a result increased in intensity which has made it difficult for her to function. She has continued to be as activeas possible and is in fact walking on hard [...] the pain. Assessment: Ms. Chavez pain intensity unfortunately has worsened which is likely related to hercoughing. Now that her bronchitis is improving I expect the intensity of her pain to lessen. She isready to progress the home exercise program. Goals: Able to perform the home exercise program independently. Able to sleep through the night. 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 Able to stand and walk without [...] Lumbago documented in this encounter Care Teams Chlorinator Operator Relationship Specialty Start Date End Date Nikki Sheridan APRN PCP - General 07/29/12 12/22/12 documented as of this encounter
--- OUTSIDE RECORDS SUMMARY | 2024-06-13 14:59 | XMS_ITS | Encounter Summary ---
Author Organization [facility] [place] [address] Care Team Providers Care Rubber Flap Cutter Name Role Phone Nikki Sheridan APRN Primary Care Provider [phone] Reason for Referral * Physical Therapy (Routine) - Closed Specialty Diagnoses / Procedures Referred By Contac t Referred To Contact Physical Therapy Diagnoses Mechanical low back pain [facility] [place] [address] [address] [facility] [place] [address] Referral ID Status Reason Start Date Expiration Date V isits Requested Visits Authorized [id number] Closed Evaluate and Treat 07/29/2012 01/25/2013 12 12 Reason for Visit * Reason Comments Low Back Pain Buttock Pain Encounter Details Date Type Department Care Team (Late st Contact Info) Description 07/29/2012 9:20 AM EDT Office [place] [address] Saleem Chanel PA [facility] [address] Mechanical low back pain (Primary Dx) Discharge Disposition: Home Social History Tobacco Use Types Packs/Day Years Used Date Smoking Tobacco: Every Day Cigarettes 1 15 Smokeless Tobacco: Never Tobacco Cessation:Ready to Q uit: No Comments:pcp working with pt to quit Sex [...] EDT documented in this encounter Progress Notes * Saleem Chanel PA - 07/29/2012 10:43 AM EDT Chief Complaint: Chief Complaint Patient presents with ??? Low Back Pain ??? Buttock Pain HPI: This patient is a 32 y.o. female that presents to the spine center for Chronic mechanical low back pain. The patient indicates that she woke up one day about 6 months ago with back pain that hasnot resolved. She indicates that her pain is somewhat episodic although there is always some level of pain. The pain is located along the entire lumbar spine. She does not describe any radicular symptoms at this time. In the past she did [...] incontinence reported and there is no reported myelopathicsymptoms. Her treatments have included Vicodin, NSAIDs, physical therapy which is mostly activity based, she has done prednisone taper and reportedly gabapentin. There is no prior history of cancer and no prior spine surgeries. ROS: Negative for any GI, or [...] level. She flexes her spine fully with her fingers going to her toes without pain and [...] abnormalities and does not completely compressed the cord either. There also is a small right lateral recess disk protrusion at L1-L2 which does not impinge any nerve roots. There is indication of some degenerative disk desiccation L5-S1 without any nervecompression. I reviewed the images with the patient. Assessment: Chronic mechanical low back pain. Plan: I have discussed at length the diagnosis of mechanical low back pain, and the fact that it isoften difficult to know what is the actual pain generator. I have told the patient that most back pain will resolve on it's own from a period of 3 months to 1 year, whether we treat it or not. Occasionally back pain can become chronic. These symptoms are hurtful and not harmful. I have discussed leif t the best treatment for low back pain is to stay active with aerobic type activities such as walking, swimming and biking. However, I have also discussed other treatment options, including: Physicaltherapy with a Enoch based approach, NSAIDs, muscle relaxants, steroid Dosepak, injections. I informed patient that based on her physical exam findings and imaging I did not see anything that is surgical. I would recommend physical therapy here in the spine center. As she is still very uncomfortable and had some response to steroid Dosepak's in the past, I feel also prescribing a Medrol Dosepak that she will take just prior to starting physical therapy may help combined treatments to improveher symptoms more rapidly. Her primary care physician otherwise can continue to manage her other medications. Hopefully she will be significantly improved after starting physical therapy. After our discussion and answering the patients [...] as-needed basis. This dictation was performed using [email or web address] voice recognition dictation. documented in this encounter Plan of Treatment Scheduled Referrals Name Type Priority Associated Diagnoses Orde r Schedule REFERRAL TO PHYSICAL THERAPY Outpatient Referral Routine Mechanical low back pain Ordered: 07/29/2012 documented as of this encounter Visit Diagnoses Diagnosis Mechanical low back pain- Primary Lumbago documented in this encounter Care Teams Rubber Flap Cutter Relationship Specialty Start Date End Date Nikki Sheridan APRN PCP - General 07/29/12 12/22/12 documented as of this encounter
--- OUTSIDE RECORDS SUMMARY | 2024-06-13 14:59 | XMS_ITS | Encounter Summary ---
[place] [address] Care Team Providers Care Mate Chief Name Role Phone Alissa Reynolds Primary Care Provider [phone]- [phone] Encounter Details Date Type Department Care Team (Latest Contact Info) Description 08/14/2014 - 08/14/2014 11:59 PM EDT Hospital Encounter [place] [address] [place] [address] Pain Discharge Disposition: Home Social History Tobacco [...] Associated Diagnosis Comments FILM LIBRARY STORAGE ONLY ULTRASOUND STUDY Routine 08/14/2014 12:00 AM EDT Pain documented in this encounter Results * Film Library- Storage Only Ultrasound Study (08/14/2014 12:00 AM EDT) Narrative [facility] - 10/07/2016 9:37 PM EST This exam is for storage only and is auto-finalizing. Joshua Zuluaga MD IMG FILM LIBRARY ORD ERABLES Performing Organization Address City/State/[facility] Co de Phone Number [place], [place] documented in this encounter Visit Diagnoses Diagnosis Pain Generalized pain documented in this encounter Care Teams Mate Chief Relationship Specialty Start Date End Date Alissa Reynolds PA [address] [place] [address] PCP - General 12/23/12 06/18/20 documented as of this encounter
--- OUTSIDE RECORDS SUMMARY | 2024-06-13 14:59 | XMS_ITS | Encounter Summary ---
Author Organization [facility] [place] [address] Care Team Providers Care Stand Up Comedian Name Role Phone Alissa Reynolds Primary Care Provider [phone]- [phone] Reason for Visit * Reason Comments Back Pain Encounter Details Date Type Department Care Team (Late st Contact Info) Description 06/05/2013 10:00 AM EDT Office [place] [address] Sophia Jenkins OT [facility] Saleem Chanel PA [facility] [place] [address] Alissa Reynolds PA [address] [place], [place] [id number] Nikki Sheridan APRN [address] [place], [place] [phone] Juanis Irving MD [address] [place], [place] [id number] Mechanical low back pain (Primary Dx) Discharge [...] - documented in this encounter Progress Notes * Sophia Moreau, OT - 06/05/2013 9:41 AM EDT Work [...] with stretching, taking medications. 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 States she has some autonomy to adjust her schedule and job [...] heel and toe walk. Upper Body Tasks Manager Er Strength (lbs): Right Left 62 62 84 65 70 83 Comments: To attain the tolerances for wet char conveyor tender strength, a dynamometer in the second position was used. Ms. Mckenna is right-hand dominant. When compared to well-established normative data, Ms. Mckenna's right wet char conveyor tender strength is slightly below average for females her age while her left wet char conveyor tender strength is within normal limits. Cardiovascular Endurance Ms. Mckenna completed a multistage, submaximal treadmill protocol by walking for 4 minutes, achievinga speed of 2.1 mph on a 10% grade. This is equivalent to 5 METs with a heart rate of 99 bpm. Reasonfor stop point: back pain due to incline Non Material Handling Tasks Bend Limited by pain to 30 degrees flexion Kneel Demonstrated 1 repetition during material handling. Reports she is able to sustain a kneelingposition for several minutes but cannot tolerate leaning [...] Ms. Mckenna carried, lifted, pushed and pulled asuccession of weights. She demonstrated fair body mechanics. [...] of [employer] Administration requires lifting over 100 lbs. on an occasional basis or up to 50 lbs. on a more frequent basis. Typical energy requirement - 7.5 to 12 METS Assessment: The above findings were based on an assessment of cardiovascular endurance, physical function, statements made during the evaluation and observations made by the bulb grower. This evaluation suggests Ms. Mckenna is currently functioning at the light physical demand level when considering her cardiovascular endurance and ability to lift. In summary, [...] she could manage her flair ups in the future to avoid missing work and was not [...] consider writing them but would need to seeher in person first). She was not interested in meeting again with Rachna Rascon PT to update her self-care strategies and exercises. 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 She is requesting a note for her employer lifting her restrictions and writing her out of work to attend today's appointment. Encouraged her to speak with lBanco ANDERS at her next follow up appointment about computer terminal operator prognosis and reassurance during future flare ups. [...] report is not intended for use as partof an application for Social Security Disability Insurance. For this purpose a referral to Occupational Medicine is required. 65 minutes were spent interviewing and assessing Ms. Mckenna. documented in this encounter Plan of Treatment Not on file documented as of this encounter Visit Diagnoses Diagnosis Mechanical low back pain- Primary Lumbago documented in this encounter Care Teams Stand Up Comedian Relationship Specialty Start Date End Date Alissa Reynolds PA [address] [place] [address] PCP - General 12/23/12 06/18/20 documented as of this encounter
--- OUTSIDE RECORDS SUMMARY | 2024-06-13 14:59 | XMS_ITS | Encounter Summary ---
Author Organization [facility] [place] [address] Care Team Providers Care Teaching Young Name Role Phone Alissa Reynolds Primary Care Provider +1- [phone] Reason for Visit * Reason Comments Low Back Pain has been having marissa ral flare ups'- pcp wanted her seen Encounter Details Date Type Department Care Team (Late st Contact Info) Description 05/12/2013 1:50 PM EDT Office [place] [address] Saleem Chanel PA [facility] [place] [address] Thoracic back pain (Primary Dx); Mechanical low back pain Discharge Disposition: Home Social History [...] this encounter Patient Instructions * Patient Instructions* Carissa Camp, THERAPY COORDINATOR - 05/12/2013 2:23 PM EDT Stopping Smoking: [...] a smoking cessation program, such as the [employer]'s [place] from Smoking program. Set a quit date. Pick your date carefully so that it is not right in the middle of a big deadline or stressful time. Once you quit, do not even take a puff. Get rid of all ashtrays and lighters afteryour last cigarette. Clean your house and your [...] come in several forms, many of themavailable lofa-cfk-sycbyul: Nicotine patches Nicotine gum and lozenges Nicotine [...] body move past its craving for nicotine. Be prepared to keep trying. Most people are not successful the first few times they try to quit. Donot get mad at yourself if you smoke again. Make a list of things you learned and think about when you want to try again, such as next week, next month, or next year. Visit our health information library at [email or web address]. You can alsoview health information on [employer], your personal patient account. Log in or sign up today. Enter Y522 in the search box to learn more about Stopping Smoking: After Your Visit. ?? [phone] [employer]. Care instructions adapted under license by [facility]. This care instruction is for use with your licensed healthcare professional. If you have questions about a medical condition or this instruction, always ask your healthcare professional. [employer] disclaims any warranty or liability for your use of this information. Content Version: [id number]; Last Revised: May 20, 2011 documented in this encounter Progress Notes * Saleem Chanel PA - 05/12/2013 3:23 PM [...] some pain now in the thoracic spine. WhenI previously saw the patient she had some degenerative changes to the upper lumbar and lower thoracic spine. My feeling is her pain was more for mechanical pain and she should respond well with some time and physical therapy. Her symptoms have improved to some extent initially with therapy and someof the strategies, but recently on April 07, she had a twisting injury that led to some increased pain specifically in her thoracic spine. She locates the pain around the level of her bra strap and she does not describe any radiation of pain around to [...] female who is alert and oriented x3. Shestands without any scoliosis. She ambulates with a mild antalgic gait on the right leg was able to toe walk, heel walk and tandem walk. She has some tenderness from about the T6 level down to the sacrum with some mild sparing at the T3-T4 level. [...] Hip range of motion was full but onthe right did cause some lateral hip discomfort. There is no clonus and a negative Babinski. Distalpulses are intact. Imaging: Her previous MRI did demonstrate some degenerative findings of T12-L1 disc and also if L2-L3, but no ilda nerve compression was identified. Assessment: Chronic mechanical low back pain with a recent exacerbation and causing some thoracic pain. Plan: I have reviewed with the patient that I am not certain quickly we will be able to identify the underlying cause for her symptoms, but I don't [...] either June or July. I did not see any shin to getting the images completed. I also ordered flexion and extension x-rays of the lumbar spine. This dictation was performed using [employer] voice recognition dictation. documented in this encounter Plan of Treatment Not on file documented as of this encounter Results * MRI lumbar spine [...] to the previous exam. Juan Parkinson MD [facility] [place] ORDERABLES * MRI thoracic spine without contrast (06/19/2013 [...] this encounter Visit Diagnoses Diagnosis Thoracic back pain- Primary Pain in thoracic spine Mechanical low back pain Lumbago Mechanical low back pain Lumbago Thoracic back pain Pain in thoracic spine Mechanical low back pain Lumbago Thoracic back pain Pain in thoracic spine documented in this encounter Care Teams Teaching Young Relationship Specialty Start Date End Date Alissa Reynolds PA [address] [place] [address] PCP - General 12/23/12 06/18/20 documented as of this encounter
[2024-06-13 17:01] LABS: Abs Immature Grans 0.06 10^3/uL (0.0-0.06); Absolute Basophil Count 0.08 10^3/uL (0.0-0.2); Absolute Lymphocyte Count 3.52 10^3/uL (1.2-3.4); Absolute Monocyte Count 1.07 10^3/uL (0.1-0.8); Basophils % 0.6 %; Eosinophils % 3.8 %; HCT 45.8 % (36.0-46.0); Immature Grans % 0.5 %; Lymphocytes % 26.7 %; MCHC 32.8 % (32.0-36.0); MCV 92 fL (80-95); MPV 9.7 fL (8.0-11.0); Monocytes % 8.1 %; Neutrophils % 60.3 %; Platelet Count 394 10^3/uL (130-400); RDW 14.2 % (11.7-14.6); RDW-SD 48.1 fL
[2024-06-13 17:06] LABS: Absolute Neutrophil Count 7.96 10^3/uL (1.2-6.7)
[2024-06-13 17:34] LABS: ALT 42 U/L (14-59); AST 26 U/L (15-37); Albumin 3.5 g/dL (3.4-5.0); Alkaline Phosphatase 91 U/L (46-116); Anion Gap 9.4 mmol/L (3-11); BUN 12 mg/dL (7-18); Bilirubin, Total 0.33 mg/dL (0.2-1.0); CO2 25.6 mmol/L (21.0-32.0); CREATININE 0.9 mg/dL (0.55-1.02); Calcium 8.7 mg/dL (8.5-10.1); Calculated LDL 91 mg/dL (<100); Chloride 104 mmol/L (98-107); Cholesterol 172 mg/dL (<200); Estimated GFR 81.86 (mL/min/1.73m2); Glucose 123 mg/dL (74-106); HDL Cholesterol 37 mg/dL (40-60); Potassium 3.9 mmol/L (3.5-5.1); Sodium 139 mmol/L (136-145); Total Protein 7.1 g/dL (6.4-8.2); Triglyceride 222 mg/dL (<150)
== END 2024-06-13 14:57 | disposition home or self-care (01) ==
LOC: NCHCN 14:56
PROVIDERS: PCP Physician Assistant Medical; Visit Provider Physician Assistant Medical
DX: R73.03 Prediabetes (principal); E78.5 Hyperlipidemia, unspecified; K76.0 Fatty (change of) liver, not elsewhere classified
CPT/HCPCS: 80053; 80061; 83036; 85025

== ENCOUNTER 2024-12-18 10:06 | Outpatient (REF) | payer OTHER, SELFPAY ==
[2024-12-20 11:48] LABS: Benzoylecgonine Negative ng/mL (Cutoff: 50); Cocaine Negative ng/mL (Cutoff: 50); Cocaine Interpretation Negative.
[2024-12-22 12:10] LABS: Codeine Negative ng/mL (Cutoff: 25); Dihydrocodeine 407 ng/mL (Cutoff: 25); Hydrocodone 2844 ng/mL (Cutoff: 25); Hydromorphone 1025 ng/mL (Cutoff: 25); Morphine Negative ng/mL (Cutoff: 25); Naloxone Negative ng/mL (Cutoff: 25); Norhydrocodone 2646 ng/mL (Cutoff: 25); Noroxycodone Negative ng/mL (Cutoff: 25); Noroxymorphone Negative ng/mL (Cutoff: 25); Opiates Interpretation Positive.
== END 2024-12-18 10:07 | disposition home or self-care (01) ==
LOC: NCHCN 10:06
PROVIDERS: PCP Physician Assistant Medical; Visit Provider Physician Assistant Medical
DX: M54.50 Low back pain, unspecified (principal)
CPT/HCPCS: 80361; 80362; 80365; 80353

== ENCOUNTER 2025-05-25 | Outpatient (CLI) | payer OTHER, SELFPAY ==
--- NOTE | 2025-05-25 | DI.MAMMO_ITS ---
Exam(s) MAMMO SCREENING EXAM: MAMMO SCREENING CLINICAL HISTORY: SCREENING, Z12.31 TECHNIQUE: Mammograms were interpreted according to the usual protocol including computer analysis with CAD system, tomosynthesis and C-view imaging. COMPARISON: [facility] MAMMO SCREENING from 05/29/2022 FINDINGS: The breasts are composed of scattered fibroglandular densities, Breast Density category B. No suspicious masses or suspicious microcalcifications are seen. No skin thickening or abnormal axillary lymph nodes are seen. There has been no significant change from prior exams. IMPRESSION: BI-RADS Category 1, Negative mammogram Yearly screening mammography is recommended. Breast Density - Category B - There are scattered areas of fibroglandular density. Breast density Category C or D implies that the patient has dense breast tissue. Dense breast tissue can make it harder to find cancer on a mammogram. Dense breast tissue is also associated with an increased risk of breast cancer. This information about the result of the mammogram report was provided to the patient to raise their awareness. Use this report when you speak with the patient about their risks for breast cancer, which includes their family history. At that time, you may recommend additional screening tests (Ultrasound or MRI) as these tests may add significant information. A negative radiographic report should not delay biopsy if a dominant or clinically suspicious mass is present. Up to ten percent of cancers are not identified on mammography. A negative report may reinforce clinical impression. Adenosis and dense breasts may obscure an underlying neoplasm. False positive reports average 6 to 10%. Patient will receive a letter notifying them of these results.
== END 2025-05-25 00:20 ==
PROVIDERS: PCP Physician Assistant Medical; Visit Provider Physician Assistant Medical
DX: Z12.31 Encounter for screening mammogram for malignant neoplasm of breast (principal); R92.323 Mammographic fibroglandular density, bilateral breasts
CPT/HCPCS: 77063; 77067

== ENCOUNTER 2025-06-25 15:05 | Outpatient (REF) | payer OTHER, SELFPAY ==
[2025-06-25 16:07] LABS: Abs Immature Grans 0.03 10^3/uL (0.0-0.06); HCT 43.7 % (36.0-46.0); HGB 14.8 g/dL (11.2-15.7); Immature Grans % 0.3 %; MCH 29.8 pg (27.0-33.0); MCHC 33.9 % (32.0-36.0); MCV 88 fL (80-95); MPV 9.4 fL (8.0-11.0); Platelet Count 425 10^3/uL (130-400); RBC 4.96 10^6/uL (3.93-5.22); RDW 14.5 % (11.7-14.6); RDW-SD 46.7 fL; WBC 10.10 10^3/uL (4.4-10.8)
[2025-06-25 16:23] LABS: ALT 29 U/L (14-59); AST 16 U/L (15-37); Albumin 3.8 g/dL (3.4-5.0); Alkaline Phosphatase 89 U/L (46-116); Anion Gap 9.7 mmol/L (3-11); BUN 10 mg/dL (7-18); Bilirubin, Total 0.7 mg/dL (0.2-1.0); CO2 24.3 mmol/L (21.0-32.0); Calcium 8.7 mg/dL (8.5-10.1); Calculated LDL 225 mg/dL (<100); Chloride 103 mmol/L (98-107); Cholesterol 286 mg/dL (<200); Estimated GFR 93.70 (mL/min/1.73m2); Glucose 123 mg/dL (74-106); HDL Cholesterol 35 mg/dL (>or=50); Potassium 4.2 mmol/L (3.5-5.1); Sodium 137 mmol/L (136-145); Total Protein 7.1 g/dL (6.4-8.2); Triglyceride 131 mg/dL (<150)
[2025-06-25 16:28] LABS: Hemoglobin A1C 5.6 % (<5.7)
== END 2025-06-25 15:06 | disposition home or self-care (01) ==
LOC: NCHCN 15:05
PROVIDERS: PCP Physician Assistant Medical; Visit Provider Physician Assistant Medical
DX: I10 Essential (primary) hypertension (principal); E78.5 Hyperlipidemia, unspecified; K76.0 Fatty (change of) liver, not elsewhere classified; E11.9 Type 2 diabetes mellitus without complications
CPT/HCPCS: 80053; 80061; 83036; 85025

== ENCOUNTER 2025-06-29 00:31 | Outpatient (CLI) | payer OTHER, SELFPAY ==
--- NOTE | 2025-06-29 08:41 | DI.RAD_ITS ---
Exam(s) XR HIP RT COMPLETE AP PELVIS EXAM: XR HIP RT COMPLETE AP PELVIS CLINICAL HISTORY: RT HIP PAIN,M25.551. TECHNIQUE: 2D digital imaging was performed. COMPARISON: No exams were available for comparison FINDINGS: 3 views No evidence of pelvic nor hip fracture. There are degenerative changes in the hips, more prominent on the right side. In addition to moderate joint space narrowing there also prominent osteophytes. No obvious degenerative subarticular cysts. No osseous lesions. IMPRESSION: Joint degenerative changes, more prominent on the right side. DATA REPOSITORY: RADIATION DOSE DELIVERED:
--- NOTE | 2025-06-29 08:41 | DI.RAD_ITS ---
Exam(s) XR LUMBAR SPINE COMPLETE EXAM: XR LUMBAR SPINE COMPLETE CLINICAL HISTORY: LOW BACK PAIN,M54.50. TECHNIQUE: 2D digital imaging was performed. COMPARISON: No exams were available for comparison FINDINGS: Five views No evidence of fracture, listhesis, nor pars interarticularis defects. There is preservation of disc height although there is anterior osseous lipping at L2-3 and L3-4 levels indicating element of degenerative disc disease at these levels despite relatively preserved disc height. Facet joints appear unremarkable as do the sacroiliac joints. No osseous lesions. IMPRESSION: Evidence of degenerative disc disease as described above DATA REPOSITORY: RADIATION DOSE DELIVERED:
== END 2025-06-29 00:51 ==
LOC: DI 00:31
PROVIDERS: PCP Physician Assistant Medical; Visit Provider Physician Assistant Medical
DX: M54.50 Low back pain, unspecified (principal); M25.551 Pain in right hip
CPT/HCPCS: 72110; 73502

== ENCOUNTER 2025-09-24 17:54 | Outpatient (REF) | payer OTHER, SELFPAY ==
[2025-09-24 18:16] LABS: Cholesterol 150 mg/dL (<200); HDL Cholesterol 36 mg/dL (>40)
== END 2025-09-24 17:55 | disposition home or self-care (01) ==
LOC: NCHCN 17:54
PROVIDERS: PCP Physician Assistant Medical; Visit Provider Physician Assistant Medical
DX: E78.5 Hyperlipidemia, unspecified (principal)
CPT/HCPCS: 80061